=== PATIENT | female | born 1955 | race Caucasian/White ===

== ENCOUNTER 2017-01-03 09:22 | Emergency (ER) | payer BC, OTHER ==
[~2017-01-03] VITALS: Ht 149.9 cm; Wt 74.6 kg
[2017-01-03 09:30] VITALS: TEMP 36.7; Ht 149.9 cm; Wt 74.6 kg
[2017-01-03 09:59] VITALS: O2SAT 98
[2017-01-03] MEDS ORDERED: SODIUM CHLORIDE 0.9% 1000ML 1,000 ML IV STA (10:08)
[2017-01-03 10:16] LABS: BASO % 0.5 %; BASO ABS # 0.04 K/uL (0-0.2); COMPLETE YES; EOS % 0.7 %; HEMATOCRIT 39.9 % (37-47); IG% 0.1 %; LYMPH ABS # 1.54 K/uL (1.2-3.4); MEAN CELL VOLUME 89.7 fL (80-100); MEAN CORPUSCULAR HEMOGLOBIN 31.2 pg (25-34); MEAN CORPUSCULAR HGB CONC 34.8 g/dl (32-36); MEAN PLATELET VOLUME 9.7 fL (7.4-10.4); MONO % 11.4 %; NEUT % 69.3 %; PLATELET COUNT 347 K/uL (130-400); RED BLOOD COUNT 4.45 M/uL (4.2-5.4); WHITE BLOOD COUNT 8.54 K/uL (4.8-10.8)
[2017-01-03 10:31] LABS: PROTHROMBIN TIME (PATIENT) 10.3 SECONDS (9.0-12.0)
--- NOTE | 2017-01-03 10:38 | DIAGNOSTIC IMAGING REPORT ---
SINGLE VIEW CHEST CLINICAL HISTORY: Generalized weakness. Dizziness. FINDINGS: An AP, portable, upright chest radiograph is obtained. No prior studies are available for comparison at the time of dictation. The examination is degraded by portable technique and patient rotation. The cardiomediastinal silhouette is unremarkable. There is mild atherosclerotic calcification of the thoracic aorta. Nonspecific interstitial thickening is noted. The lungs and pleural spaces are clear. No pneumothorax is seen. The skeletal structures are osteopenic. The bony thorax is grossly intact. IMPRESSION: No active disease in the chest. Electronically signed by: Osvaldo Tate M.D. 01/03/2017 10:37 AM Dictated Date/Time: 01/03/2017 10:36 AM
[2017-01-03 10:49] LABS: ALT/SGPT 24 U/L (12-78); BLOOD UREA NITROGEN 13 mg/dl (7-18); BUN/CREATININE RATIO 19.2 (10-20); CALCIUM 9.8 mg/dl (8.5-10.1); CARBON DIOXIDE 26 mmol/L (21-32); CHLORIDE 102 mmol/L (98-107); CREATININE 0.66 mg/dl (0.60-1.20); GLUCOSE 97 mg/dl (70-99); MAGNESIUM 2.5 mg/dl (1.8-2.4); POTASSIUM 4.4 mmol/L (3.5-5.1); SODIUM 136 mmol/L (136-145)
[2017-01-03 10:53] LABS: ALKALINE PHOSPHATASE 52 U/L (45-117); AST/SGOT 14 U/L (15-37)
[2017-01-03] MEDS ORDERED: MAGN400T6 PO (11:19)
[2017-01-03] MEDS ORDERED: TRAZ50TA35 PO (11:19)
[2017-01-03] MEDS ORDERED: FERR50TA3 (11:19)
[2017-01-03] MEDS ORDERED: ASPCH81X PO (11:19)
[2017-01-03] MEDS ORDERED: ESOM20CA PO (11:19)
[2017-01-03] MEDS ORDERED: MULTCHW3 (11:19)
[2017-01-03 11:50] LABS: URINE APPEARANCE CLEAR (CLEAR); URINE BILIRUBIN NEG (NEG); URINE COLOR YELLOW; URINE EPITHELIAL CELL AUTO 0-5 /lpf (0-5); URINE NITRITE NEG (NEG); UROBILINOGEN NEG (NEG)
[2017-01-03 11:51] LABS: MANUAL MICROSCOPIC REQUIRED? NO; REVIEW REQ? NO
[2017-01-03] MEDS ORDERED: OXYCODONE HCL IR 5 MG TAB (IMMEDIATE RELEASE) PO STA (13:16)
--- NOTE | 2017-01-03 13:20 | DIAGNOSTIC IMAGING REPORT ---
CT OF THE HEAD WITHOUT CONTRAST CLINICAL HISTORY: Left arm weakness. COMPARISON STUDY: No previous studies for comparison. CT DOSE: 537.48 mGy.cm TECHNIQUE: Helical axial images of the head were obtained without IV contrast. Automated exposure control was utilized for the study. FINDINGS: No acute intracranial hemorrhage, midline shift or mass effect is present. Ventricular system is normal. Basilar cisterns are patent. There are no extra axial collections. Cornejo-white differentiation is maintained. There are no findings to suggest acute dural sinus thrombosis or acute territorial infarct. There are no significant calvarial abnormalities. Visualized portions of the sinuses and mastoid air cells are clear. IMPRESSION: No acute intracranial findings. Electronically signed by: Franck Rob M.D. 01/03/2017 1:19 PM Dictated Date/Time: 01/03/2017 1:17 PM
--- NOTE | 2017-01-03 14:33 | Neurology Consultation ---
Neurology Consultation Date of Consultation: Jan 03, 2017. Attending Physician: Primary Care Physician: Concepción Cline PA-C Reason for Consultation: right UE weakness, neck pain, generalized weakness History of Present Illness Source: patient, family Raina is a 61 year old female with a PMH chronic diarrhea, acid reflex, has been seen in our office for gait abnormalities and fatigue. She has been weak for the past 2 years but she feel it has gotten worse and she is having more trouble walking. She has been shuffling her gait per her sister who is bedside in the room. She is also experiencing some neck pain and lower back pain. She states her neck pain is in the past 2-3 months and is also having left arm weakness over last month with some pain. She has seen her PCP for the new left arm issues and was instructed to contact neurology. At her last visit she had an MRI of her brain that was normal for her age. She denies falls, head injury , bowel or bladder issues other than her chronic diarrhea, vivid dreams, CP, SOB , swallowing issues, vision changes, difficulty with drinking or holding a cup, N, V, freezing in door ways, +difficulty rolling in bed, standing for chair, balance issues, near falls. . Past Medical/Surgical History Medical Problems: (1) GERD (gastroesophageal reflux disease) Status: Chronic Social History Smoking Status: Never smoker Alcohol Use: occasionally Drug Use: none Allergies Coded Allergies: No Known Allergies (Unverified , 01/03/17) Physical Exam Vital Signs (Past 24 Hrs): Date Time Temp Pulse Resp B/P (MAP) Pulse Ox O2 Delivery O2 Flow Rate FiO2 01/03/17 13:30 95 16 158/81 98 Room Air 01/03/17 13:16 106 18 168/90 98 Room Air 01/03/17 12:09 99 18 151/86 97 Room Air 01/03/17 12:07 96 01/03/17 11:33 103 18 162/86 98 Room Air 01/03/17 10:56 99 18 155/95 99 Room Air 90 154/86 96 149/87 01/03/17 10:35 90 20 162/88 98 Room Air 01/03/17 09:59 98 Room Air 01/03/17 09:30 36.7 106 18 145/85 97 Room Air Physical Exam: Constitutional: appearance nourished, healthy and decrease blink frequency Ears, Nose, Mouth and Throat: mucous membranes moist, no injection and skin normal Cardiovascular: normal S-1 and S-2 and regular rate and rhythm Respiratory: clear to auscultation (CTA) and no rales, rhonchi or wheeze Musculoskeletal: no peripheral edema and good distal pulses Skin: no stigmata of neurocutaneous disease noted and normal and intact Eyes: extraocular muscles intact (EOMI) and pupils equal, round and reactive to light (PERRL), disc flat, good vascular pulsations NEUROLOGIC EXAMINATION: Mental status: Alert and interactive Oriented to full date and location Oriented to person Speech fluent with no evidence of aphasia Cranial Nerves smile eye brow raise symmetric Reflexes: Deep tendon reflexes were symmetrical brisk reflexes throughout Plantar responses were flexor.slight tremor right > left LE Sensory: cool touch, vibration intact, GT proprioception bilaterally intact, no sustained clonus Coordination: finger to nose without bi pass, no resting tremor, bilateral cog wheeling R>L Gait/Stance: Posture lying in bed, needs assistance getting out of bed, romberg + with eyes closed, squares corners with turning, when getting back in bed puts knee on bed and swings around to sitting Motor: Negative for pronator drift of out stretched arms with eyes closed. Strength: biceps triceps deltoids 4+/5 bilaterally hand purchasing internship 5/5 bilaterally, hip flex 5/ 5 plantar flex ext 4/5 Laboratory Results Past 24 Hours: 01/03/17 09:45 Red Blood Count 4.45, Mean Corpuscular Volume 89.7, Mean Corpuscular Hemoglobin 31.2, Mean Corpuscular Hemoglobin Concent 34.8, Mean Platelet Volume 9.7, Neutrophils (%) (Auto) 69.3, Lymphocytes (%) (Auto) 18.0, Monocytes (%) (Auto) 11.4, Eosinophils (%) (Auto) 0.7, Basophils (%) (Auto) 0.5, Neutrophils # (Auto ) 5.92, Lymphocytes # (Auto) 1.54, Monocytes # (Auto) 0.97, Eosinophils # (Auto ) 0.06, Basophils # (Auto) 0.04 01/03/17 09:45 Test 01/03/17 09:45 01/03/17 10:31 01/03/17 11:24 White Blood Count 8.54 K/uL (4.8-10.8) Red Blood Count 4.45 M/uL (4.2-5.4) Hemoglobin 13.9 g/dL (12.0-16.0) Hematocrit 39.9 % (37-47) Mean Corpuscular Volume 89.7 fL (80-100) Mean Corpuscular Hemoglobin 31.2 pg (25-34) Mean Corpuscular Hemoglobin Concent 34.8 g/dl (32-36) Platelet Count 347 K/uL (130-400) Mean Platelet Volume 9.7 fL (7.4-10.4) Neutrophils (%) (Auto) 69.3 % Lymphocytes (%) (Auto) 18.0 % Monocytes (%) (Auto) 11.4 % Eosinophils (%) (Auto) 0.7 % Basophils (%) (Auto) 0.5 % Neutrophils # (Auto) 5.92 K/uL (1.4-6.5) Lymphocytes # (Auto) 1.54 K/uL (1.2-3.4) Monocytes # (Auto) 0.97 K/uL (0.11-0.59) Eosinophils # (Auto) 0.06 K/uL (0-0.5) Basophils # (Auto) 0.04 K/uL (0-0.2) RDW Standard Deviation 45.9 fL (36.4-46.3) RDW Coefficient of Variation 13.9 % (11.5-14.5) Immature Granulocyte % (Auto) 0.1 % Immature Granulocyte # (Auto) 0.01 K/uL (0.00-0.02) Prothrombin Time 10.3 SECONDS (9.0-12.0) Prothromb Time International Ratio 1.0 (0.9-1.1) Activated Partial Thromboplast Time 25.4 SECONDS (21.0-31.0) Partial Thromboplastin Ratio 1.0 Anion Gap 8.0 mmol/L (3-11) Est Creatinine Clear Calc Drug Dose 77.8 ml/min Estimated GFR () 109.7 Estimated GFR (Non- 94.7 BUN/Creatinine Ratio 19.2 (10-20) Calcium Level 9.8 mg/dl (8.5-10.1) Magnesium Level 2.5 mg/dl (1.8-2.4) Total Bilirubin 0.3 mg/dl (0.2-1) Direct Bilirubin < 0.1 mg/dl (0-0.2) Aspartate Amino Transf (AST/SGOT) 14 U/L (15-37) Alanine Aminotransferase (ALT/SGPT) 24 U/L (12-78) Alkaline Phosphatase 52 U/L (45-117) Troponin I < 0.015 ng/ml (0-0.045) Total Protein 8.0 gm/dl (6.4-8.2) Albumin 4.7 gm/dl (3.4-5.0) Bedside Glucose 88 mg/dl (70-90) Urine Color YELLOW Urine Appearance CLEAR (CLEAR) Urine pH 8.0 (4.5-7.5) Urine Specific [place] 1.010 (1.000-1.030) Urine Protein NEG (NEG) Urine Glucose (UA) NEG (NEG) Urine Ketones TRACE (NEG) Urine Occult Blood 1+ (NEG) Urine Nitrite NEG (NEG) Urine Bilirubin NEG (NEG) Urine Urobilinogen NEG (NEG) Urine Leukocyte Esterase NEG (NEG) Urine WBC (Auto) 0 /hpf (0-5) Urine RBC (Auto) 0-4 /hpf (0-4) Urine Hyaline Casts (Auto) 0 /lpf (0-5) Urine Epithelial Cells (Auto) 0-5 /lpf (0-5) Urine Bacteria (Auto) NEG (NEG) Imaging CT head -no acute findings. Impression 61 year old female with left arm weakness, generalized weakness, gait abnormalities Plan 1. fall precautions 2. labs - normal urine no UTI 3. MRI c spine without evaluation for any pathology to explain weakness 4. no new medications 5. b12, folate, TSH should be checked 6. further recommendations once MRI c spine is completed- degenerative changes 7. start Sinemet 25/100 mg 1/2 tab breakfast and 1/2 tab dinner x 1 week, then increase to 1/2 tab breakfast 1/2 tab lunch 1/2 tab and dinner, x 1 week then increase to 1 tab breakfast, 1/2 tab lunch, 1/2 tab dinner x 1 week, then increase to 1 tab breakfast, 1 tab lunch, 1/2 tab dinner x1 week then 1 tab with breakfast lunch and dinner 8. will arrange for outpatient PT for gait issues. 9. watch for hallucinations vivid dreams, GI upset, light headed with standing. 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
[2017-01-03] MEDS ORDERED: MoRPHine SULFATE 4 MG/ML 1 ML CARP\\VIAL IV STA (15:41)
--- NOTE | 2017-01-03 15:42 | DIAGNOSTIC IMAGING REPORT ---
MRI OF THE CERVICAL SPINE WITHOUT IV CONTRAST CLINICAL HISTORY: Left arm weakness. Neck pain. COMPARISON STUDY: No priors. TECHNIQUE: MRI of the cervical spine is performed utilizing various T1 and T2-weighted sequences in the axial and sagittal planes. IV contrast was not administered for this examination. FINDINGS: Cervical spine: Vertebral body height and alignment are maintained throughout the cervical spine. Normal marrow signal intensity is preserved throughout the visualized bony structures. The atlantodental articulation is maintained. The spinous processes are intact. Intervertebral discs: Degenerative disc desiccation is seen throughout the cervical spine. Only mild loss of height is noted, greatest at C4-C5 through C6-C7. Spinal cord: The cervical spinal cord is normal in morphology and signal intensity. C2-C3: Unremarkable. C3-C4: A tiny posterior disc osteophyte complex abuts the ventral cord. The neural foramina are patent. C4-C5: A posterior disc osteophyte complex abuts the ventral cord. Uncovertebral and facet arthropathy cause mild bilateral neuroforaminal stenosis, left greater than right. C5-C6: A posterior disc osteophyte complex abuts the ventral cord. Uncovertebral and facet arthropathy cause mild left neural foraminal stenosis. C6-C7: A posterior disc osteophyte complex abuts the ventral cord. Uncovertebral and facet arthropathy cause mild bilateral neural foraminal stenosis. A nerve sheath cyst on the left measures up to 6 mm. C7-T1: The central canal and neural foramina are widely patent. A nerve sheath cyst in the left neural foramen measures up to 8 mm. Soft tissues: The prevertebral and paraspinous soft tissues are within normal limits. Brain parenchyma: Partially imaged brain parenchyma at the skull base is normal in appearance. IMPRESSION: 1. Mild multilevel cervical spondylosis as discussed above. See discussion for detailed level by level analysis. 2. The cervical spinal cord is normal in morphology and signal intensity. 3. No destructive bony lesion is seen. Dictated: 01/03/2017 3:27 PM Transcribed: 01/03/2017 3:42 PM [email or web address] Electronically signed by: Osvaldo Tate M.D. 01/03/2017 3:48 PM Dictated Date/Time: 01/03/2017 3:27 PM
[2017-01-03 16:34] VITALS: BP 146/82; PULSE 102; O2SAT 97
--- NOTE | 2017-01-03 17:09 | EMERGENCY ROOM VISIT NOTE ---
History Report prepared by Zaheer: Majo Francisco Under the Supervision of: Dr. Tera Wylie D.O. First contact with patient: 09:54 Chief Complaint: WEAKNESS Stated Complaint: WEAKNESS, DIZZY, BACK PAIN, EAR PAIN, FOGGY,NAUSEA History of Present Illness The patient is a 61 year old female who presents to the Emergency Room with complaints of worsening generalized weakness. The patient states that she has been experiencing weakness for the past 1.5 years, but it has gotten gradually worse over the last 3-4 months. The patient is also experiencing neck pain at the base of her head as well as lower back pain. The patient states that the lower back pain is chronic, but the neck pain is new. The patient is also experiencing left arm weakness that started 2-3 months ago as well as left arm pain that seemed to worsen over the last month. She describes the pain as "squeezing." The patient states that she has been experiencing difficulty with coordination of her left arm. The patient denies chest pain, shortness of breath , nausea, vomiting, pain or burning with urination, and numbness. The patient is also experiencing intermittent diarrhea, but she states that is normal for her. The patient has seen her PCP 5 times since her symptoms started. Her PCP referred her to neurology and she saw neurology in May and August, but has not seen or talked to them about her current symptoms. She states that she had an unremarkable MRI of her brain and that neurology diagnosed her with an abnormal gait but nothing else. She states that she has an appointment with neurology in January. Source of History: patient Onset: 3-4 months ago Position: other (global) Quality: other (generalized weakness) Timing: worsening Associated Symptoms: + neck pain, + diarrhea (intermittent, normal for her) , + weakness (left arm), No chest pain, No SOB, No nausea, No vomiting, No urinary symptoms (pain or burning with urination), No numbness Note: left arm pain, difficulty with coordination of her left arm Review of Systems See HPI for pertinent positives & negatives. A total of 10 systems reviewed and were otherwise negative. Past Medical & Surgical Medical Problems: (1) GERD (gastroesophageal reflux disease) Family History Cancer Diabetes mellitus Heart disease Hypertension Social History Smoking Status: Never Smoker Smokeless Tobacco Use: No Alcohol Use: occasionally Drug Use: none Housing Status: lives alone Occupation Status: unemployed Current/Historical Medications Scheduled Aspirin (Aspirin Chewable), 81 MG PO DAILY Esomeprazole Magnesium (Nexium), 20 MG PO DAILY Miscellaneous Medications Ferrous Sulfate (Iron (Ferrous Sulfate)), 65 MG Magnesium Oxide (Mag-Ox), 400 MG PO Multiple Vitamins W/ Minerals (Centrum) Trazodone Hcl (Trazodone), 25 MG PO Allergies Coded Allergies: No Known Allergies (Unverified , 01/03/17) Physical Exam Vital Signs Date Time Temp Pulse Resp B/P (MAP) Pulse Ox O2 Delivery O2 Flow Rate FiO2 01/03/17 16:34 102 146/82 97 01/03/17 15:39 100 18 169/103 98 Room Air 01/03/17 13:30 95 16 158/81 98 Room Air 01/03/17 13:16 106 18 168/90 98 Room Air 01/03/17 12:09 99 18 151/86 97 Room Air 01/03/17 12:07 96 01/03/17 11:33 103 18 162/86 98 Room Air 01/03/17 10:56 99 18 155/95 99 Room Air 90 154/86 96 149/87 01/03/17 10:35 90 20 162/88 98 Room Air 01/03/17 09:59 98 Room Air 01/03/17 09:30 36.7 106 18 145/85 97 Room Air Physical Exam GENERAL: alert, sitting up in bed, disheveled, well appearing, well nourished, no acute distress, non-toxic EYE EXAM: normal conjunctiva, PERRL and EOM's intact OROPHARYNX: no exudate, no erythema, lips, buccal mucosa, and tongue normal and mucous membranes are moist NECK: supple, no nuchal rigidity, no adenopathy, non-tender LUNGS: Clear to auscultation. Normal chest wall mechanics HEART: no murmurs, S1 normal and S2 normal ABDOMEN: abdomen soft, non-tender, normo-active bowel sounds, no masses, no rebound or guarding. BACK: Back is symmetrical on inspection and there is no deformity, no midline tenderness, no CVA tenderness. SKIN: no rashes and no bruising UPPER EXTREMITIES: upper extremities are grossly normal. LOWER EXTREMITIES: No pitting edema. NEURO EXAM: Normal sensorium, cranial nerves II-XII intact, normal speech, no weakness of arms, no weakness of legs. No drift. Finger to nose intact. Gross sensation intact. Rapid alternating movements of the upper extremities intact bilaterally. Medical Decision & Procedures ER Provider Diagnostic Interpretation: Radiology results as stated below per my review and the radiologist's interpretation: SINGLE VIEW CHEST FINDINGS: An AP, portable, upright chest radiograph is obtained. No prior studies are available for comparison at the time of dictation. The examination is degraded by portable technique and patient rotation. The cardiomediastinal silhouette is unremarkable. There is mild atherosclerotic calcification of the thoracic aorta. Nonspecific interstitial thickening is noted. The lungs and pleural spaces are clear. No pneumothorax is seen. The skeletal structures are osteopenic. The bony thorax is grossly intact. IMPRESSION: No active disease in the chest. Electronically signed by: Osvaldo Tate M.D. 01/03/2017 10:37 AM Dictated Date/Time: 01/03/2017 10:[address] OF THE HEAD WITHOUT CONTRAST FINDINGS: No acute intracranial hemorrhage, midline shift or mass effect is present. Ventricular system is normal. Basilar cisterns are patent. There are no extra axial collections. Cornejo-white differentiation is maintained. There are no findings to suggest acute dural sinus thrombosis or acute territorial infarct. There are no significant calvarial abnormalities. Visualized portions of the sinuses and mastoid air cells are clear. IMPRESSION: No acute intracranial findings. Electronically signed by: Franck Rob M.D. 01/03/2017 1:19 PM Dictated Date/Time: 01/03/2017 1:17 PM MRI OF THE CERVICAL SPINE WITHOUT IV CONTRAST FINDINGS: Cervical spine: Vertebral body height and alignment are maintained throughout the cervical spine. Normal marrow signal intensity is preserved throughout the visualized bony structures. The atlantodental articulation is maintained. The spinous processes are intact. Intervertebral discs: Degenerative disc desiccation is seen throughout the cervical spine. Only mild loss of height is noted, greatest at C4-C5 through C6-C7. Spinal cord: The cervical spinal cord is normal in morphology and signal intensity. C2-C3: Unremarkable. C3-C4: A tiny posterior disc osteophyte complex abuts the ventral cord. The neural foramina are patent. C4-C5: A posterior disc osteophyte complex abuts the ventral cord. Uncovertebral and facet arthropathy cause mild bilateral neuroforaminal stenosis, left greater than right. C5-C6: A posterior disc osteophyte complex abuts the ventral cord. Uncovertebral and facet arthropathy cause mild left neural foraminal stenosis. C6-C7: A posterior disc osteophyte complex abuts the ventral cord. Uncovertebral and facet arthropathy cause mild bilateral neural foraminal stenosis. A nerve sheath cyst on the left measures up to 6 mm. C7-T1: The central canal and neural foramina are widely patent. A nerve sheath cyst in the left neural foramen measures up to 8 mm. Soft tissues: The prevertebral and paraspinous soft tissues are within normal limits. Brain parenchyma: Partially imaged brain parenchyma at the skull base is normal in appearance. IMPRESSION: 1. Mild multilevel cervical spondylosis as discussed above. See discussion for detailed level by level analysis. 2. The cervical spinal cord is normal in morphology and signal intensity. 3. No destructive bony lesion is seen. Dictated: 01/03/2017 3:27 PM Transcribed: 01/03/2017 3:42 PM [email or web address] Electronically signed by: Osvaldo Tate M.D. 01/03/2017 3:48 PM Dictated Date/Time: 01/03/2017 3:27 PM Laboratory Results 01/03/17 09:45 Red Blood Count 4.45, Mean Corpuscular Volume 89.7, Mean Corpuscular Hemoglobin 31.2, Mean Corpuscular Hemoglobin Concent 34.8, Mean Platelet Volume 9.7, Neutrophils (%) (Auto) 69.3, Lymphocytes (%) (Auto) 18.0, Monocytes (%) (Auto) 11.4, Eosinophils (%) (Auto) 0.7, Basophils (%) (Auto) 0.5, Neutrophils # (Auto ) 5.92, Lymphocytes # (Auto) 1.54, Monocytes # (Auto) 0.97, Eosinophils # (Auto ) 0.06, Basophils # (Auto) 0.04 01/03/17 09:45 Test 01/03/17 09:45 01/03/17 10:31 01/03/17 11:24 White Blood Count 8.54 K/uL (4.8-10.8) Red Blood Count 4.45 M/uL (4.2-5.4) Hemoglobin 13.9 g/dL (12.0-16.0) Hematocrit 39.9 % (37-47) Mean Corpuscular Volume 89.7 fL (80-100) Mean Corpuscular Hemoglobin 31.2 pg (25-34) Mean Corpuscular Hemoglobin Concent 34.8 g/dl (32-36) Platelet Count 347 K/uL (130-400) Mean Platelet Volume 9.7 fL (7.4-10.4) Neutrophils (%) (Auto) 69.3 % Lymphocytes (%) (Auto) 18.0 % Monocytes (%) (Auto) 11.4 % Eosinophils (%) (Auto) 0.7 % Basophils (%) (Auto) 0.5 % Neutrophils # (Auto) 5.92 K/uL (1.4-6.5) Lymphocytes # (Auto) 1.54 K/uL (1.2-3.4) Monocytes # (Auto) 0.97 K/uL (0.11-0.59) Eosinophils # (Auto) 0.06 K/uL (0-0.5) Basophils # (Auto) 0.04 K/uL (0-0.2) RDW Standard Deviation 45.9 fL (36.4-46.3) RDW Coefficient of Variation 13.9 % (11.5-14.5) Immature Granulocyte % (Auto) 0.1 % Immature Granulocyte # (Auto) 0.01 K/uL (0.00-0.02) Prothrombin Time 10.3 SECONDS (9.0-12.0) Prothromb Time International Ratio 1.0 (0.9-1.1) Activated Partial Thromboplast Time 25.4 SECONDS (21.0-31.0) Partial Thromboplastin Ratio 1.0 Anion Gap 8.0 mmol/L (3-11) Est Creatinine Clear Calc Drug Dose 77.8 ml/min Estimated GFR () 109.7 Estimated GFR (Non- 94.7 BUN/Creatinine Ratio 19.2 (10-20) Calcium Level 9.8 mg/dl (8.5-10.1) Magnesium Level 2.5 mg/dl (1.8-2.4) Total Bilirubin 0.3 mg/dl (0.2-1) Direct Bilirubin < 0.1 mg/dl (0-0.2) Aspartate Amino Transf (AST/SGOT) 14 U/L (15-37) Alanine Aminotransferase (ALT/SGPT) 24 U/L (12-78) Alkaline Phosphatase 52 U/L (45-117) Troponin I < 0.015 ng/ml (0-0.045) Total Protein 8.0 gm/dl (6.4-8.2) Albumin 4.7 gm/dl (3.4-5.0) Bedside Glucose 88 mg/dl (70-90) Urine Color YELLOW Urine Appearance CLEAR (CLEAR) Urine pH 8.0 (4.5-7.5) Urine Specific Carbon 1.010 (1.000-1.030) Urine Protein NEG (NEG) Urine Glucose (UA) NEG (NEG) Urine Ketones TRACE (NEG) Urine Occult Blood 1+ (NEG) Urine Nitrite NEG (NEG) Urine Bilirubin NEG (NEG) Urine Urobilinogen NEG (NEG) Urine Leukocyte Esterase NEG (NEG) Urine WBC (Auto) 0 /hpf (0-5) Urine RBC (Auto) 0-4 /hpf (0-4) Urine Hyaline Casts (Auto) 0 /lpf (0-5) Urine Epithelial Cells (Auto) 0-5 /lpf (0-5) Urine Bacteria (Auto) NEG (NEG) Laboratory results per my review. Medications Administered Medications (Trade) Dose Ordered Sig/Corey Route Start Time Stop Time Status Last Admin Dose Admin Sodium Chloride 1,000 ml @ 999 mls/hr Q1H1M STAT IV 01/03/17 10:08 01/03/17 11:08 DC 01/03/17 10:35 999 MLS/HR Oxycodone HCl (Roxicodone Immediate Rel Tab) 5 mg NOW STAT PO 01/03/17 13:16 01/03/17 13:17 DC 01/03/17 13:21 5 MG Morphine Sulfate (MoRPHine SULFATE INJ) 4 mg NOW STAT IV 01/03/17 15:41 01/03/17 15:42 DC 01/03/17 15:47 4 MG ECG Indication: weakness Rate (beats per minute): 98 Rhythm: sinus rhythm Findings: no ectopy, other (normal axis) ED Course ED COURSE: Vital signs were reviewed and showed hypertension and tachycardia. The patients medical record was reviewed The above diagnostic studies were performed and reviewed. ED treatments and interventions as stated above. 0958: The patient was evaluated in room B3. A complete history and physical examination was performed. 1008: Ordered Sodium Chloride 1000 ml @ 999 mls/hr IV 1121: I reviewed the patient's case with Dr. Ware - Neurology. He recommended admitting the patient because she may need a cervical spine MRI. However, he thinks that her symptoms may be secondary to Parkinson's disease. 1152: I reassessed and updated the patient. She is resting comfortably. The patient is in agreement with getting a CT of her head. 1316: Ordered Oxycodone HCl 5 mg PO 1356: Shirley Acevedo PA-C - Neurology is at bedside and recommends a MRI of the cervical spine. 1440: I reassessed the patient. She is resting comfortably. 1541: Ordered Morphine Sulfate 4 mg IV 1621: Dr. Ware and Shirley Acevedo PA-C are at bedside. Dr. Ware evaluated the patient. He agrees that the patient can go home and follow-up as an outpatient. 1623: Upon reevaluation, the patient is doing well. I discussed my findings with the patient and she understands and agrees with the treatment plan. Based on the patients age, coexisting illnesses, exam and lab findings the decision to treat as an outpatient was made. The patient remained stable while under my care. The patient appeared well at the time of discharge. Medical Decision Differential Diagnosis includes but is not limited to dehydration, stroke, anemia, hypoglycemia, hyponatremia, hypernatremia, urinary tract infection, pneumonia, bronchitis, sepsis, gastroenteritis, additional abdominal pathology, metabolic abnormalities and infections. Medication Reconciliation: I attest that I have personally reviewed the patient' s current medication list. Blood pressure screening: Patient was found to have an elevated blood pressure and was referred to their primary doctor for recheck and further treatment. Patient is a 61-year-old female who has had a steady decline at home for the past 18 months. She has been following with neurology as she has been having difficulty with her fine motor skills and ambulation. She is complaining of diffuse weakness and wide gait. She presents today as she has had increased diffuse weakness associated with slight new weakness in her left upper extremity. No weakness in her left upper extremity has been present since October. She also complains of upper back pain and chronic lower back pain. Labs were obtained and CBC along with BMP, LFTs, bilirubin, troponin and magnesium are fairly unremarkable. UA was negative. Chest x-ray was unremarkable. CT head was negative. Patient was evaluated by Shirley Acevedo and Dr. Ware from neurology. They recommended MRI of the cervical spine. Following this patient was reevaluated and we discussed options at bedside. She will be discharged follow-up in the office and was given a prescription for Parkinson's medication by neurology and an order for PT/OT was placed by neurology. Patient and family were comfortable with this. Discussed with Pt concerning signs and symptoms to watch out for. Pt was instructed to follow up with their PCP and discussed with the patient their option to return to the ED at anytime for persistent or worsening symptoms. The appropriate anticipatory guidance and out-patient management, including indications for return to the emergency department, were explained at length to the patient and understood. Consults Time Called: [phone] Consulting Physician: Dr. Ware - Neurology Returned Call: [phone] I reviewed the patient's case with Dr. Ware - Neurology. He recommended admitting the patient because she may need a cervical spine MRI. However, he thinks that her symptoms may be secondary to Parkinson's disease. Impression Primary Impression: Weakness Additional Impression: Parkinson's disease Scribe Attestation The scribe's documentation has been prepared under my direction and personally reviewed by me in its entirety. I confirm that the note above accurately reflects all work, treatment, procedures, and medical decision making performed by me. Departure Information Dispostion Home / Self-Care Referrals Concepción Cline PA-C (PCP) Forms HOME CARE DOCUMENTATION FORM, IMPORTANT VISIT INFORMATION Patient Instructions ED Weakness Bl[facility] Additional Instructions Please follow up with your primary care doctor with in the next 24 hours. Any worsening of your symptoms, please return to the ED immediately. This includes fevers greater than 100.4, chest pain, shortness of breath, weakness in your arms or legs, or any other concerning signs or symptoms from your standpoint. Please follow-up with neurology as previously discussed. Please take medications as prescribed by neurology. Problem Qualifiers
== END 2017-01-03 16:35 | disposition home or self-care (01) ==
LOC: C.EDB 09:24
DX: R53.1 Weakness (principal); R29.898 Other symptoms and signs involving the musculoskeletal system; R26.9 Unspecified abnormalities of gait and mobility; G20 Parkinson's disease; R19.7 Diarrhea, unspecified; K21.9 Gastro-esophageal reflux disease without esophagitis; M54.2 Cervicalgia; M54.5 Low back pain; Z83.3 Family history of diabetes mellitus; Z82.49 Family history of ischemic heart disease and other diseases of the circulatory system; Z79.82 Long term (current) use of aspirin; Z79.899 Other long term (current) drug therapy

== ENCOUNTER 2022-02-18 14:04 | Inpatient (IN) ==
--- NOTE | 2022-02-18 15:11 | XRay Report ---
XR chest 2V PA/lateral CLINICAL HISTORY: weakness TECHNIQUE: 2 views of the chest were obtained. Comparison: None available at the time of this dictation. FINDINGS: No lines and tubes are seen. The cardiomediastinal silhouette is normal. The lungs are clear. No evid ence of pleural effusion or pneumothorax. Degenerative changes are seen in the spine. IMPRESSION: No acute chest disease. ACT 112: Negative or not required by law. Electronically signed by: Niko Ritchie M.D. 02/18/2022 3:10 PM
[2022-02-18 15:35] LABS: Basophils # (auto) 0.06 K/uL (0-0.2); Basophils % (auto) 0.7 %; Eosinophils # (auto) 0.05 K/uL (0-0.50); Eosinophils % (auto) 0.6 %; Hematocrit (blood only) 37.3 % (34.1-44.9); Immature Granulocytes # (auto) 0.03 K/uL (0.00-0.02); Immature Granulocytes % (auto) 0.3 %; Lymphocytes # (auto) 1.58 K/uL (1.2-3.4); Lymphocytes % (auto) 17.4 %; Mean Corpuscular Hgb Conc 34.9 g/dL (32.0-36.0); Mean Platelet Volume 8.9 fL (9.4-12.3); Monocytes % (auto) 9.9 %; Neutrophils # (auto) 6.46 K/uL (1.4-6.5); Neutrophils % (auto) 71.1 %; Platelet Count 394 K/uL (130-400); RDW Coefficient of Variation 13.4 % (11.5-14.5); RDW Standard Deviation 43.8 fL (36.4-46.3); Red Blood Count 4.19 M/uL (3.93-5.22); White Blood Count 9.08 K/ul (4.8-10.8)
[2022-02-18 16:09] LABS: Alanine Aminotransferase 8 U/L (7-52); Albumin Globulin Ratio 1.7 (0.9-2); Albumin Level 4.6 gm/dl (3.4-5.0); Alkaline Phosphatase 51 U/L (34-104); Anion Gap 8 (3-11); Aspartate Aminotransferase 18 U/L (13-39); Bilirubin,Total 0.4 mg/dl (0.2-1.0); Blood Urea Nitrogen 9 mg/dl (6-23); Calcium 9.4 mg/dl (8.5-10.1); Carbon Dioxide 24 mmol/L (21-32); Chloride 94 mmol/L (98-107); Est GFR (African American) 113.9 ml/min; Est GFR (Non-African American) 98.2 ml/min; Globulin 2.7 gm/dl (2.5-4.0); Glucose 117 mg/dl (70-99(Fasting)); Potassium 4.2 mmol/L (3.5-5.1); Sodium 126 mmol/L (136-145); Total Protein 7.3 gm/dl (6.0-8.3)
[2022-02-18] MEDS ORDERED: SODIUM CHLORIDE 0.9% 1000ML 1,000 ML IV STA (16:14)
[2022-02-18] MEDS ORDERED: CARBIDOPA/LEVODOPA 25/100MG TAB PO STA (16:19)
--- NOTE | 2022-02-18 16:19 | Emergency Department Note ---
Impression & Plan Weakness, Acute hyponatremia ED Provider Note INFORMANT: Patient and family ED PROVIDER(S): Angel Davis MD CHIEF COMPLAINT: Weakness PLAN: Disposition: Admitted Condition: Good Outpatient prescription management: none Referral: None MEDICAL DECISION MAKING: Patient presented because of increasing weakness and weight loss. She had a nonfocal examination. She did miss her afternoon Sinemet and this was ordered. Patient was hydrated. Laboratory testing did reveal an unremarkable CBC however the patient does have significant hyponatremia on labs. I did obtain old records and the patient had a sodium of 134 previously but then it dropped last week to 130 and it is now in the danger zone of 126. This would explain her increasing weakness. Patient had an ECG that showed a sinus tachycardia without ischemia. Further management in the hospital will be necessary regarding the weakness and the hyponatremia. [facility] Patient and family were informed. They were in agreement. Patient was evaluated in the ER and admitted for further management. Triage Nursing notes reviewed and agree them. Vital Signs: reviewed and remarkable for mild tachycardia Differential diagnosis: Infection, dehydration, metabolic abnormality, hypo/hyperglycemia, electrolyte disturbance, anemia, hypoxia, cardiac sources, intracerebral event, toxicologic, neurologic, as well as other pathologies. Diagnostics interpreted by me: ECG: Twelve-lead ECG reveals sinus tachycardia [address] elevation or depression. No PACs or PVCs. Cardiac Monitoring: Cardiac monitoring ordered by me: The patient was placed on continuous cardiac monitoring and observed. It revealed a sinus tachycardic rhythm at 108 beats per minute without ectopy or evidence of dysrhythmia. Imaging studies: Chest x-ray. Findings: A chest x-ray was performed and revealed no pneumothorax, effusion, infiltrate, pulmonary edema, free air under the diaphragm, or wide mediastinum. Impression: No acute disease. HPI: The patient is a 66 year old female who presents to the Emergency Room with complaints of weakness. This started a few weeks ago and is worsening. The patient also notes the following associated symptoms, 15lb weight loss. The patient has found no relieving factors. Current pain is rated as 0/10. Missed 1430 sinemet dose today. Pt denies LOC, headache, fevers, chills, diaphoresis, visual changes, neck pain, chest pain, breathing difficulties, nausea, vomiting, abdominal pain, back pain, melena, hematochezia, urinary symptoms, numbness, lymphadenopathy, rash, or other complaints. ROS: See above HPI for pertinent positives & negatives. A total of 10 systems reviewed and were otherwise negative. PAST MEDICAL HISTORY:See Below , parkinson PAST SURGICAL HISTORY:See Below, FAMILY HISTORY:See Below SOCIAL HISTORY:See Below, no tobacco or ETOH HOME MEDICATIONS:See Below ALLERGIES:See Below VITALS:See Below PHYSICAL EXAMINATION: GENERAL: Awake, alert, well-appearing, in no distress HENT: Normocephalic, atraumatic. Oropharynx unremarkable. EYES: Normal conjunctiva. Sclera non-icteric. NECK: Inspection normal. Non-tender. Supple. No nuchal rigidity. FROM. No masses. RESPIRATORY: Clear to auscultation. No wheezes. No rales. Normal respiratory effort. CARDIAC: Normal rate. Normal rhythm. No murmurs. No rubs. Extremities warm and well perfused. Pulses equal. No JVD. GI: Soft, non-distended. No tenderness to palpation. No rebound or guarding. No masses. RECTAL: Deferred. MUSCULOSKELETAL: Atraumatic. Chest examination reveals no tenderness. The back is symmetrical on inspection without obvious abnormality. There is no CVA tenderness to palpation. No joint edema. LOWER EXTREMITIES: Calves are equal size bilaterally and non-tender. No edema. No discoloration. NEURO: Normal sensorium. Generalized weakness but no focal sensory or motor deficits noted. SKIN: No rash or jaundice noted. Angel Davis MD Past Med/Surg History Medical History GERD (gastroesophageal reflux disease) Parkinson's disease Surgical History History of colonoscopy History of esophagogastroduodenoscopy Family History Other Diabetes Heart disease Social History Smoking Status: Never smoker Preferred Language: [place] marital status: / current occupational status: retired Feels Safe at Home: Yes Allergies Allergies Allergy/AdvReac Type Severity Reaction Status Date / Time No Known Allergies Allergy Verified 02/18/22 16:55 Home Meds Home Medications Medication Instructions Recorded Confirmed Lactobacillus acidophilus 10 10,000 mmu cells PO QDL 02/18/22 02/18/22 billion cell capsule (Probiotic) acetaminophen 650 mg 650 mg PO HS 02/18/22 02/18/22 tablet,extended release (Tylenol 8 Hour) amantadine HCl 100 mg capsule 100 mg PO DAILY 02/18/22 02/18/22 bismuth subsalicylate 262 mg/15 mL 524 mg PO Q4H PRN Gi Upset 02/18/22 02/18/22 oral suspension (Pepto-Bismol) carbidopa ER 25 mg-levodopa 100 mg 1.5 tab PO 5XD 02/18/22 02/18/22 tablet,extended release carbidopa ER 50 mg-levodopa 200 mg 1 tab PO HS 02/18/22 02/18/22 tablet,extended release ferrous sulfate 325 mg (65 mg 325 mg PO DAILY 02/18/22 02/18/22 iron) tablet loperamide 2 mg capsule (Imodium 2 mg PO QID PRN Diarrhea 02/18/22 02/18/22 A-D) magnesium 250 mg tablet 250 mg PO DAILY 02/18/22 02/18/22 multivitamin with minerals 1 tab PO DAILY 02/18/22 02/18/22 omeprazole 40 mg capsule,delayed 40 mg PO DAILY 02/18/22 02/18/22 release Results & Data (ED) Vital Signs Vital Signs - 24 hr 02/18/22 14:13 02/18/22 15:49 Temperature 36.7 C Temperature Source Temporal Artery Scan Pulse Rate 109 H Pulse Rate [Right Finger] 110 H Respiratory Rate 20 19 Respiratory Effort / Characteristics Non-Labored Respiratory Depth Normal Respiratory Pattern Regular Blood Pressure 170/106 H Blood Pressure [Right Arm] 194/114 H Blood Pressure Mean 127 Blood Pressure Mean [Right Arm] 140 Blood Pressure Position Sitting Pulse Oximetry 96 98 Oxygen Delivery Method Room Air Room Air Sepsis Recent Fever Within 48 Hours No Sepsis New/Unexplained Change in Mental Status No Sepsis Action Taken by Nursing No Action Required Laboratory Data Result diagrams: 02/18/22 15:15 02/18/22 15:15 Lab Results 02/18/22 02/18/22 02/18/22 Range/Units 15:15 15:15 15:15 WBC 9.08 (4.8-10.8) K/ul RBC 4.19 (3.93-5.22) M/uL Hgb 13.0 (12.0-16.0) g/dl Hct 37.3 (34.1-44.9) % MCV 89.0 (80.0-100.0) fL MCH 31.0 (25.0-34.0) pg MCHC 34.9 (32.0-36.0) g/dL RDW Std Deviation 43.8 (36.4-46.3) fL RDW Coeff of Jovani 13.4 (11.5-14.5) % Plt Count 394 (130-400) K/uL MPV 8.9 L (9.4-12.3) fL Immature Gran % (Auto) 0.3 % Neut % (Auto) 71.1 % Lymph % (Auto) 17.4 % [place] % (Auto) 9.9 % Eos % (Auto) 0.6 % Baso % (Auto) 0.7 % Neut # (Auto) 6.46 (1.4-6.5) K/uL Lymph # (Auto) 1.58 (1.2-3.4) K/uL [place] # (Auto) 0.90 H (0.24-0.82) K/uL Eos # (Auto) 0.05 (0-0.50) K/uL Baso # (Auto) 0.06 (0-0.2) K/uL Immature Gran # (Auto) 0.03 H (0.00-0.02) K/uL ESR (0-30) mm/hr Sodium 126 L (136-145) mmol/L Potassium 4.2 (3.5-5.1) mmol/L Chloride 94 L (98-107) mmol/L Carbon Dioxide 24 (21-32) mmol/L Anion Gap 8 (3-11) BUN 9 (6-23) mg/dl Creatinine 0.53 L (0.6-1.2) mg/dl Est Cr Clr Drug Dosing Not Reportable Est GFR ( Amer) 113.9 ml/min Est GFR (Non-Af Amer) 98.2 ml/min BUN/Creatinine Ratio 17.0 (10-20) Glucose 117 H (70-99(Fasting)) mg/dl Calcium 9.4 (8.5-10.1) mg/dl Total Bilirubin 0.4 (0.2-1.0) mg/dl AST 18 (13-39) U/L ALT 8 (7-52) U/L Alkaline Phosphatase 51 (34-104) U/L Troponin I High Sens 4.7 (0-14) pg/ml C-Reactive Protein < 0.50 (0-0.5) mg/dl Total Protein 7.3 (6.0-8.3) gm/dl Albumin 4.6 (3.4-5.0) gm/dl Globulin 2.7 (2.5-4.0) gm/dl Albumin/Globulin Ratio 1.7 (0.9-2) TSH 0.696 (0.300-4.500) uIu/ml SARS-CoV-2, RNA, NAAT (NEGATIVE) 02/18/22 02/18/22 02/18/22 Range/Units 15:15 15:56 16:44 WBC (4.8-10.8) K/ul RBC (3.93-5.22) M/uL Hgb (12.0-16.0) g/dl Hct (34.1-44.9) % MCV (80.0-100.0) fL MCH (25.0-34.0) pg MCHC (32.0-36.0) g/dL RDW Std Deviation (36.4-46.3) fL RDW Coeff of Jovani (11.5-14.5) % Plt Count (130-400) K/uL MPV (9.4-12.3) fL Immature Gran % (Auto) % Neut % (Auto) % Lymph % (Auto) % [place] % (Auto) % Eos % (Auto) % Baso % (Auto) % Neut # (Auto) (1.4-6.5) K/uL Lymph # (Auto) (1.2-3.4) K/uL [place] # (Auto) (0.24-0.82) K/uL Eos # (Auto) (0-0.50) K/uL Baso # (Auto) (0-0.2) K/uL Immature Gran # (Auto) (0.00-0.02) K/uL ESR 15 (0-30) mm/hr Sodium (136-145) mmol/L Potassium (3.5-5.1) mmol/L Chloride (98-107) mmol/L Carbon Dioxide (21-32) mmol/L Anion Gap (3-11) BUN (6-23) mg/dl Creatinine (0.6-1.2) mg/dl Est Cr Clr Drug Dosing Est GFR ( Amer) ml/min Est GFR (Non-Af Amer) ml/min BUN/Creatinine Ratio (10-20) Glucose (70-99(Fasting)) mg/dl Calcium (8.5-10.1) mg/dl Total Bilirubin (0.2-1.0) mg/dl AST (13-39) U/L ALT (7-52) U/L Alkaline Phosphatase (34-104) U/L Troponin I High Sens Cancelled (0-14) pg/ml C-Reactive Protein (0-0.5) mg/dl Total Protein (6.0-8.3) gm/dl Albumin (3.4-5.0) gm/dl Globulin (2.5-4.0) gm/dl Albumin/Globulin Ratio (0.9-2) TSH (0.300-4.500) uIu/ml SARS-CoV-2, RNA, NAAT NEGATIVE (NEGATIVE) Administered Medications Sodium Chloride (Nss 1000ml) 1,000 mls @ 125 mls/hr IV .Q8H STA Stop: 02/19/22 00:13 Last Admin: 02/18/22 16:46 Dose: 125 mls/hr Documented By: SM Discontinued Medications Acetaminophen (Acetaminophen 325 Mg Tab) Confirm Administered Dose 650 mg .ROUTE .STK-MED ONE Stop: 02/18/22 19:16 Last Admin: 02/18/22 19:20 Dose: Not Given Documented By: SS Acetaminophen (Acetaminophen 500 Mg Tab) 1,000 mg PO NOW STA Stop: 02/18/22 19:17 Last Admin: 02/18/22 19:42 Dose: Not Given Documented By: SS Acetaminophen (Acetaminophen 500 Mg Tab) Confirm Administered Dose 1,000 mg .ROUTE .STK-MED ONE Stop: 02/18/22 19:23 Last Admin: 02/18/22 19:43 Dose: Not Given Documented By: SS Carbidopa/Levodopa (Carbidopa/Levodopa 25/100mg Tab) 1 tab PO NOW STA Stop: 02/18/22 16:20 Last Admin: 02/18/22 16:46 Dose: 1 tab Documented By: HARDIK Lorazepam (Lorazepam 0.5 Mg Tab) 0.5 mg PO NOW STA Stop: 02/18/22 19:17 Last Admin: 02/18/22 19:33 Dose: 0.5 mg Documented By: SS Imaging Data Radiologist's Impression: Chest X-Ray 02/18/22 14:17 XR chest 2V PA/lateral CLINICAL HISTORY: weakness TECHNIQUE: 2 views of the chest were obtained. Comparison: None available at the time of this dictation. FINDINGS: No lines and tubes are seen. The cardiomediastinal silhouette is normal. The lungs are clear. No evidence of pleural effusion or pneumothorax. Degenerative changes are seen in the spine. IMPRESSION: No acute chest disease. ACT 112: Negative or not required by law. Electronically signed by: Niko Ritchie M.D. 02/18/2022 3:10 PM Discharge Plan Visit Data Chief Complaint: Illness Stated Complaint: PARKINSONS, LOSS OF APPETITE, WEAKNESS ED Provider: Angel Davis Discharge Problem: Weakness, Acute hyponatremia
[2022-02-18 16:25] LABS: C Reactive Protein < 0.50 mg/dl (0-0.5)
--- NOTE | 2022-02-18 16:53 | History & Physical Report ---
Date of Service February 18, 2022 Assessment & Plan (1) Weakness: (2) Acute hyponatremia: Plan: This is a 66-year-old female with PMH of Parkinson's disease, iron deficiency anemia, restless leg syndrome and other medical problems listed below who presents with weight loss and generalized weakness and was found to have hyponatremia. Poor p.o. intake, decreased appetite Per chart review, sodium within normal range in the past but noted to be 130 on 02/16/2022 and 126 today Endorses nausea and weakness, denies vomiting. No confusion Urine sodium and creatinine pending Giving 1 L NSS and will recheck BMP this evening Consider nephrology consult if no improvement Fall precautions. PT/OT evaluation (3) Weight loss: Plan: Unintentional 50 pound weight loss over the past [address] chest without con and abdominal and pelvis without con to rule out any masses Continue Ensure supplementation (4) Parkinson's disease: Plan: Follows with [place] neurology. Continue Sinemet. Prescribed amantadine earlier this week but has not yet started medication (5) Urinary symptom or sign: Plan: Increased frequency and urgency over the past week, weakness Unable to provide urine sample but okay with straight cath - follow up on UA Afebrile, no leukocytosis (6) Elevated BP without diagnosis of hypertension: Plan: BP elevated in ED at 185/105 in setting of anxiety Normal BP in clinic yesterday PRN IV hydralazine (7) Sinus tachycardia: Plan: EKG with sinus tach at 106 bpm. Denies any chest pain or palpitations. High- sensitivity troponin within normal limits. Admits to being anxious. Repeat EKG in the a.m. (8) GERD (gastroesophageal reflux disease): Plan: Recently started on PPI. Continue DVT Ppx: SQ heparin Code status: FULL PCP: Connor Dispo: Admitted to PCU Patient seen in collaboration with Dr. Scales. Please see addendum. History of Present Illness Chief Complaint: generalized weakness Primary Care Provider: Concepción Cline PA-C This is a 66-year-old female with PMH of Parkinson's disease, iron deficiency anemia, restless leg syndrome and other medical problems listed below who presents with weight loss and generalized weakness. Per outpatient chart, patient has lost 50 pounds in the past 2 years in the setting of decreased appetite. Does have some nausea but has been drinking Ensure, [place] instant breakfast over the past few weeks. States she eats burgers and pizza and is not intending to lose weight. Over the past 2 weeks, patient has become more generally weak. Denies any focal weakness or falls. No fever, chills, congestion or cough. No chest pain or palpitations. No shortness of breath. Has intermittent nausea but denies any vomiting. Has ongoing constipation issues from iron supplement but had bowel movement this morning. States she has experienced increased urinary frequency and urgency over the past week but denies any hematuria, dysuria. Follows with neurologist Dr. Dean in [place] who added Amantadine 100mg earlier this week to help with dyskinesias, she is yet to start. Outpatient lab work from earlier this week revealed a sodium of 130. Patient lives at home and does not currently use any assistive devices to ambulate. Allergies Allergy/AdvReac Type Severity Reaction Status Date / Time No Known Allergies Allergy Verified 02/18/22 16:55 Home Medications Medication Instructions Recorded Confirmed Type Lactobacillus acidophilus 10 10,000 mmu cells PO QDL 02/18/22 02/18/22 History billion cell capsule (Probiotic) acetaminophen 650 mg 650 mg PO HS 02/18/22 02/18/22 History tablet,extended release (Tylenol 8 Hour) amantadine HCl 100 mg capsule 100 mg PO DAILY 02/18/22 02/18/22 History bismuth subsalicylate 262 mg/15 mL 524 mg PO Q4H PRN Gi Upset 02/18/22 02/18/22 History oral suspension (Pepto-Bismol) carbidopa ER 25 mg-levodopa 100 mg 1.5 tab PO 5XD 02/18/22 02/18/22 History tablet,extended release carbidopa ER 50 mg-levodopa 200 mg 1 tab PO HS 02/18/22 02/18/22 History tablet,extended release ferrous sulfate 325 mg (65 mg 325 mg PO DAILY 02/18/22 02/18/22 History iron) tablet loperamide 2 mg capsule (Imodium 2 mg PO QID PRN Diarrhea 02/18/22 02/18/22 History A-D) magnesium 250 mg tablet 250 mg PO DAILY 02/18/22 02/18/22 History multivitamin with minerals 1 tab PO DAILY 02/18/22 02/18/22 History omeprazole 40 mg capsule,delayed 40 mg PO DAILY 02/18/22 02/18/22 History release Past Med/Surg History Medical History GERD (gastroesophageal reflux disease) Parkinson's disease Surgical History History of colonoscopy History of esophagogastroduodenoscopy Family History Other Diabetes Heart disease Social History Smoking Status: Never smoker Preferred Language: Kiny[place] marital status: / current occupational status: retired Feels Safe at Home: Yes Review of Systems Review of Systems: At least ten systems reviewed and negative except as noted in the HPI. Physical Exam Physical Exam: General Appearance: WD/WN, vitals as above, NAD, sitting up in bed, pleasant, anxious Head: normocephalic, atraumatic Eyes: normal inspection, PERRL, conjunctivae normal, anicteric sclerae ENT: external ear and nose normal, oropharynx normal Neck: normal visual inspection, trachea midline, no thyromegaly Respiratory: normal respiratory effort, lungs clear to auscultation, no wheeze, rales, rhonchi. No accessory muscle use Cardiovascular: tachycardic rate, regular rhythm, no murmur, normal peripheral pulses, no BLE edema. Vessels: no JVD Chest: normal inspection of chest Abdomen/GI: normal bowel sounds, soft, mild TTP of LLQ, no guarding, no hepatosplenomegaly Extremities/Musculoskeletal: no cyanosis or clubbing, extremities motor strength 5/5 Neurologic: PERRL, EOMI, accommodation nl, no face palsy, no dysarthria, CN's II-XI intact bilaterally and moves all extremities Psychiatric: A+Ox3, anxious Skin: no rashes, normal color, warm/dry Results & Data Results & Data ([facility]) Vital Signs (Past 12 Hours) Vital Signs Temp Pulse Pulse Resp BP BP Pulse Ox 02/18/22 15:49 110 H 19 194/114 H 98 02/18/22 14:13 36.7 C 109 H 20 170/106 H 96 O2 Del Method 02/18/22 15:49 Room Air 02/18/22 14:13 Room Air Laboratory Results Short CBC 02/18/22 Range/Units 15:15 WBC 9.08 (4.8-10.8) K/ul Hgb 13.0 (12.0-16.0) g/dl Hct 37.3 (34.1-44.9) % Plt Count 394 (130-400) K/uL BMP 02/18/22 15:15 Sodium 126 L Potassium 4.2 Chloride 94 L Carbon Dioxide 24 BUN 9 Creatinine 0.53 L Glucose 117 H Calcium 9.4 Liver Function 02/18/22 Range/Units 15:15 Total Bilirubin 0.4 (0.2-1.0) mg/dl AST 18 (13-39) U/L ALT 8 (7-52) U/L Alkaline Phosphatase 51 (34-104) U/L Albumin 4.6 (3.4-5.0) gm/dl Diagnostic Findings Chest X-Ray 02/18/22 14:17 XR chest 2V PA/lateral CLINICAL HISTORY: weakness TECHNIQUE: 2 views of the chest were obtained. Comparison: None available at the time of this dictation. FINDINGS: No lines and tubes are seen. The cardiomediastinal silhouette is normal. The lungs are clear. No evidence of pleural effusion or pneumothorax. Degenerative changes are seen in the spine. IMPRESSION: No acute chest disease. ACT 112: Negative or not required by law. Electronically signed by: Niko Ritchie M.D. 02/18/2022 3:10 PM ECG Additional Comments: Sinus tachycardia 106 bpm Code Status & VTE Plan VTE Prophylaxis Plan VTE Prophylaxis will be ordered: Yes Supervising Physician Co-Signing Physician Notes Attending Addendum: care coordinated with LACIE Buckley please refer to her notes for full details, I agree with her notes patient seen and examined, records reviewed by myself as well on exam, patient seen resting in bed, not in distress feels weak, having low back pain from laying in bed no chest pain, dyspnea, palpitations, dizziness no other symptoms VS noted and reviewed oriented x 3, not in distress, speaks in sentences with no effort nor accessory muscle use normal rate, regular rhythm, no murmurs clear breath sounds bilaterally non distended, soft, nontender no bipedal edema, erythema, warmth no neuro deficits labs and imaging reviewed ASSESSMENT AND PLAN GENERALIZED WEAKNESS, HISTORY OF PARKINSON no medication changes prior to onset of weakness no clear focus of infection from progression of Parkinson? deconditioning? from hyponatremia? continue usual Sinemet for now, PT/OT serum osm, urine osm and Na pending, IV fluids given, repeat Na at 10pm may need inpatient Rehab, although patient prefers to return home UNINTENTIONAL WEIGHT LOSS 15 pounds, for the past [address] chest, abd/pelvis to rule out malignancy Boost TID DYSPHAGIA TO LARGE PILLS noted at the ER crush all meds Speeech Tx consult other diagnoses and plan of care as per LACIE Buckley's notes Je Scales MD
[2022-02-18 17:15] LABS: Troponin I High Sensitivity 4.7 pg/ml (0-14)
[2022-02-18] MEDS ORDERED: hydrALAZINE HCL 20 MG/ML VIAL IV PRN (17:43)
[2022-02-18] MEDS ORDERED: BISMUTH SUBSALICYLATE LIQD 236 ML PO PRN (17:45)
--- NOTE | 2022-02-18 18:18 | CT Scan Report ---
CT chest diagnostic wo con CLINICAL HISTORY: weight loss TECHNIQUE: Multidetector row helical CT of the chest was performed. Coronal and sagittal reformations were obtained. Automated dose lowering techniques and/or adjustment according to patient size were u tilized for this exam. CT DOSE: 445.81 mGycm Comparison: None available at the time of this dictation. FINDINGS: Lungs and pleura: Atelectasis is seen in the lung bases. No suspicious pulmonary nodules are seen. Heart and pericardium: Heart size is normal. No pericardial effusion. Vessels: Moderate atherosclerotic changes in the aorta and coronary arteries. Mediastinum and lety: No lymphadenopathy is seen. The esophagus is mildly patulous. Chest wall and lower neck: Unremarkable. Abdomen: For findings below the diaphragm, please refer to CT of the abdomen dated the same. Bones: Degenerative changes in the thoracic spine. There is loss of height of the T6 vertebral body. IMPRESSION: Unremarkable evaluation of the chest. No evidence of malignancy. ACT 112: Negative or not required by law. Electronically signed by: Niko Ritchie M.D. 02/18/2022 6:16 PM
--- NOTE | 2022-02-18 18:23 | CT Scan Report ---
CT abd pelvis wo con CLINICAL HISTORY: LLQ pain, weight loss TECHNIQUE: Helical axial images of the abdomen and pelvis were obtained. Automated dose lowering tech niques and/or adjustment according to patient size were utilized for this exam. This exam was perfor med without intravenous contrast. COMPARISON: None available at the time of this dictation. FINDINGS: Lower chest: For findings above the diaphragm, please see CT chest performed same day. Liver: Unremarkable. No focal lesions are seen. Gallbladder and biliary tree: No calcified gallstones. Normal caliber wall. No intra- or extrahepatic biliary ductal dilation. Pancreas: Unremarkable, no focal lesions. Spleen: Unremarkable. Adrenals: Unremarkable. Kidneys and ureters: Unremarkable. Bladder: Unremarkable. Reproductive organs: Unremarkable. Bowel: Unremarkable appearance of the bowel. The appendix is normal. Lymph nodes Retroperitoneal: Unremarkable. Pelvic: Unremarkable. Mesenteric: Unremarkable. Peritoneum: Normal. Vessels: Atherosclerotic calcifications are seen. Abdominal wall: Unremarkable. Bones: Degenerative changes in the visualized spine. IMPRESSION: No acute abnormality. In particular no evidence of malignancy or diverticulitis. ACT 112: Negative or not required by law. Electronically signed by: Niko Ritchie M.D. 02/18/2022 6:21 PM
[2022-02-18] MEDS ORDERED: ACETAMINOPHEN 325 MG TAB ONE (19:15)
[2022-02-18] MEDS ORDERED: LORazepam 0.5 MG TAB PO STA (19:16)
[2022-02-18] MEDS ORDERED: ACETAMINOPHEN 500 MG TAB ONE (19:22)
[2022-02-18] MEDS: ACETAMINOPHEN 500 MG TAB PO STA ×2 (19:25→19:42)
[2022-02-18] MEDS ORDERED: ACETAMINOPHEN 1,000 MG/100 ML VIAL IV STA (20:11)
[2022-02-18] MEDS: ACETAMINOPHEN 325 MG TAB PO SCH (20:14)
[2022-02-18 21:06] LABS: Appearance Urine Clear (Clear); Bacteria Urine Automated Negative (Negative); Bilirubin Urine Negative (Negative); Blood Urine 1+ (Negative); Color Urine Yellow; Epithelial Cell Urine Auto 0-5 /lpf (0-5); Glucose Urine UA Negative (Negative); Ketones Urine 2+ (Negative); Leukocyte Esterase Urine Negative (Negative); Nitrite Urine Negative (Negative); Protein Urine Negative (Negative); Specific Gravity Urine 1.014 (1.000-1.030); Urobilinogen Urine Negative (Negative); pH Urine 7.5 (4.5-7.5)
[2022-02-18] MEDS: HEPARIN SOD 5,000 UNIT/0.5 ML VIAL SQ SCH (22:26)
[2022-02-18] MEDS: CARBIDOPA/LEVODOPA 50/200MG EXT REL TAB PO SCH (22:27)
[2022-02-18 23:19] LABS: Calcium 9.2 mg/dl (8.5-10.1); Creatinine Clr Calc Pharmacy 86.6 ml/min; Est GFR (African American) 119.3 ml/min; Est GFR (Non-African American) 102.9 ml/min; Potassium 3.9 mmol/L (3.5-5.1)
[2022-02-19] MEDS: CARBIDOPA/LEVODOPA 25/100MG TAB PO SCH ×5 (05:04→18:30)
[2022-02-19] MEDS: PANTOprazole 40 MG TAB PO SCH (08:05)
[2022-02-19] MEDS: FERROUS SULFATE 325 MG TAB PO SCH ×2 (08:05→08:09)
[2022-02-19] MEDS: MAGNESIUM OXIDE 400 MG TAB PO SCH (08:06)
[2022-02-19] MEDS: MULTIVITAMIN TAB PO SCH (08:06)
[2022-02-19 09:31] LABS: Hematocrit (blood only) 37.5 % (34.1-44.9); Mean Corpuscular Hemoglobin 31.3 pg (25.0-34.0); Mean Corpuscular Hgb Conc 34.7 g/dL (32.0-36.0); Mean Corpuscular Volume 90.1 fL (80.0-100.0); Mean Platelet Volume 8.7 fL (9.4-12.3); Platelet Count 368 K/uL (130-400); RDW Coefficient of Variation 13.3 % (11.5-14.5); RDW Standard Deviation 43.8 fL (36.4-46.3); Red Blood Count 4.16 M/uL (3.93-5.22); White Blood Count 8.69 K/ul (4.8-10.8)
[2022-02-19 10:01] LABS: BUN Creatinine Ratio 14.6 (10-20); Calcium 9.3 mg/dl (8.5-10.1); Creatinine Clr Calc Pharmacy 82.2 ml/min; Est GFR (African American) 117.6 ml/min; Est GFR (Non-African American) 101.5 ml/min; Potassium 3.6 mmol/L (3.5-5.1)
[2022-02-19] MEDS: HEPARIN SOD 5,000 UNIT/0.5 ML VIAL SQ SCH ×2 (10:15→20:44)
[2022-02-19] MEDS: ADVANCED PROBIOTIC 1250 MG CAPSULE PO SCH (11:26)
[2022-02-19] MEDS: ACETAMINOPHEN 325 MG TAB PO PRN (18:47)
--- NOTE | 2022-02-19 18:57 | Hospitalist Progress Note ---
Date of Service February 19, 2022 Assessment & Plan (1) Weakness: (2) Acute hyponatremia: Plan: Present on admission with generalized weakness, weight loss and hyponatremia Na on admission 126, sodium within normal range in the past but noted to be 130 on 02/16/2022 Possible related to poor intake and increase water intake ( family said pt drink alot of water) received IVF, Na 125 today Urine sodium and creatinine normal Nephrology consulted Consider fluid restriction to 1.5L daily, will discuss it with nephrology Increase PO intake (3) Weight loss: Plan: Unintentional 50 pound weight loss over the past [address] chest abdominal and pelvis showed acute finding. unfortunately Imaging were done without contrast Continue Ensure supplementation (4) Parkinson's disease: Plan: Follows with [place] [facility]. Continue Sinemet. Prescribed amantadine earlier this week but has not yet started medication (5) Urinary symptom or sign: Plan: Afebrile, no leukocytosis UA showed no sign of infection (6) Elevated BP without diagnosis of hypertension: Plan: BP elevated in ED at 185/105 in setting of anxiety BP improved (7) Sinus tachycardia: Plan: Mostly due to anxiety Denies any chest pain or palpitations. High-sensitivity troponin within normal limits. stable (8) GERD (gastroesophageal reflux disease): Plan: Continue PPI DVT Ppx: SQ heparin Code status: FULL PCP: Connor Disposition will discharge once medically stable Admission and Anticipated Discharge Date Admission Date: February 18, 2022 Subjective Pt was seen and examined for follow up of weakness and hyponatremia Sitting in chair with no distress with family member at bedside Pt said that she feels alot better today She said that her energy and appetite improved today Denies any chest pain, palpitation, dizziness and SOB Review of Systems Review of Systems: All systems reviewed & are unremarkable except as noted in Subjective Physical Exam Physical Exam: General- No acute distress Head- atraumatic Eyes- PERRL, EOMI, ENT- oropharynx clear Neck- supple, no JVD Lungs- clear to auscultation Heart- regular rhythm; no murmur Abdomen- normal bowel sounds, soft, nontender Extremities- no calf tenderness Neuro- alert, oriented x 3; PERRL, EOMI; no facial palsy; no dysarthria Skin- warm & dry Results & Data Results & Data ([facility]) Vital Signs (Past 12 Hours) Vital Signs Temp Pulse Pulse Resp BP Pulse Ox O2 Del Method 02/19/22 16:43 36.5 C 99 H 18 146/85 H 96 Room Air 02/19/22 13:20 36.6 C 103 H 18 113/61 100 02/19/22 11:20 111 H 02/19/22 07:38 36.8 C 102 H 18 116/79 96 Room Air
--- NOTE | 2022-02-19 19:47 | Consultation Report ---
NEPHROLOGY CONSULTATION NOTE DATE OF SERVICE: 02/19/2022. REASON FOR CONSULT: Hyponatremia. HISTORY OF PRESENT ILLNESS: The patient is a 66-year-old female with history of Parkinson's disease, who presented to the hospital with generalized weakness, weight loss. She has lost 50 pounds in the last 2 years in the setting of decreased appetite. She was having nausea and poor appetite and was not really eating much solid food; however, she was drinking lots of liquid, it appears. She drinks a bout 5 bottles of water as well as 2 Gatorade, plus coffee giving approximately 120 ounces of liquid per day by her account. She was not having any shortness of breath, orthopnea, or lower extremity ed jorge. She was brought to the hospital because of abnormal labs by her sister. She had outpatient lab s done earlier this week, which showed serum sodium of 130. After that, she was drinking more liquid s and on admission, sodium was 126. Since being admitted, she has received 1 liter of normal saline, but with that serum sodium actually went down to 125. Urine sodium is 139. Urine osmolality has no t been done yet. ALLERGIES: None. MEDICATIONS: Home medication list was reviewed in detail and is as per the reconciliation and H and P. PAST MEDICAL AND SURGICAL HISTORY: Includes GERD, Parkinson, colonoscopy, EGD, restless legs syndrom e, iron-deficiency anemia. SOCIAL HISTORY: She is a , retired, lives at home. Never smoked. No alcohol. FAMILY HISTORY: Negative for renal disease or dialysis. REVIEW OF SYSTEMS: As detailed in the HPI; unless stated otherwise, 12 systems reviewed and negative . Positive review of systems includes nausea, poor appetite, ongoing weight loss. PHYSICAL EXAMINATION: GENERAL: A middle-aged white female who does not appear to be in any respiratory distress. She does appear to be somewhat anxious. She is awake, alert, oriented x3. VITAL SIGNS: Blood pressure is 146/85, pulse rate 99, temperature 36.5, 95% on room air. HEENT: Mucous membrane is moist. NECK: Supple. No JVD. CHEST: Bilaterally clear to auscultation. CARDIOVASCULAR: S1 and S2 regular. ABDOMEN: Soft, nontender. EXTREMITIES: Show no edema. LABORATORY TEST: Shows serum sodium of 130 a few days prior to hospitalization, on admission yesterd ay was 126, this morning is 125. Potassium is 3.6, creatinine is 0.48. ASSESSMENT AND PLAN: A 66-year-old female admitted with generalized weakness and was found to have h yponatremia, for which I have been consulted. Hyponatremia: She appears euvolemic. Serum sodium has dropped relatively quick. We do not have the full testing yet to know the exact etiology, but the pattern of the sodium fits more with syndrome of inappropriate secretion of antidiuretic hormone with excessive fluid intake. We do need urine osmol ality and serum osmolality to further categorize the etiology of renal failure. She was drinking exc essive amount of liquid with around 120 ounces per day. We will put her on fluid restriction of 1500 mL per day. No need of normal saline. We will add urea 15 grams twice daily for at least a few dos es. Thank you very much for the consult. Job ID: [id number]
[2022-02-19] MEDS: ACETAMINOPHEN 325 MG TAB PO SCH (20:43)
[2022-02-19] MEDS: CARBIDOPA/LEVODOPA 50/200MG EXT REL TAB PO SCH (20:44)
[2022-02-19] MEDS: UREA (UREA-NA) 15 GM PACK PO SCH (20:45)
[2022-02-20] MEDS: CARBIDOPA/LEVODOPA 25/100MG TAB PO SCH ×5 (05:01→16:54)
--- NOTE | 2022-02-20 05:47 | Electrocardiogram Report ---
Test Reason : Blood Pressure : / mmHG Vent. Rate : 106 BPM Atrial Rate : 106 BPM P-R Int : 140 ms QRS Dur : 076 ms QT Int : 320 ms P-R-T Axes : 045 007 053 degrees QTc Int : 425 ms Poor data quality, interpretation may be adversely affected Sinus tachycardia Otherwise normal ECG When compared with ECG of 03-JAN-2017 09:47, No significant change Confirmed by Darron King ([id number]) on 02/20/2022 5:47:29 AM Referred By: Confirmed By:Darron King
--- NOTE | 2022-02-20 06:16 | Electrocardiogram Report ---
Test Reason : Blood Pressure : / mmHG Vent. Rate : 095 BPM Atrial Rate : 095 BPM P-R Int : 146 ms QRS Dur : 072 ms QT Int : 348 ms P-R-T Axes : 031 -04 014 degrees QTc Int : 437 ms Normal sinus rhythm Nonspecific T wave abnormality When compared with ECG of 18-FEB-2022 15:12, No significant change was found Confirmed by Darron King ([id number]) on 02/20/2022 6:16:16 AM Referred By: REFERRED SELF Confirmed By:Darron King
[2022-02-20 06:54] LABS: Hematocrit (blood only) 36.3 % (34.1-44.9); Hemoglobin 12.5 g/dl (12.0-16.0); Mean Corpuscular Hemoglobin 30.9 pg (25.0-34.0); Mean Corpuscular Hgb Conc 34.4 g/dL (32.0-36.0); Mean Corpuscular Volume 89.9 fL (80.0-100.0); Mean Platelet Volume 9.4 fL (9.4-12.3); Platelet Count 360 K/uL (130-400); RDW Coefficient of Variation 13.2 % (11.5-14.5); RDW Standard Deviation 43.6 fL (36.4-46.3); Red Blood Count 4.04 M/uL (3.93-5.22)
[2022-02-20 07:14] LABS: BUN Creatinine Ratio 22.4 (10-20); Calcium 9.3 mg/dl (8.5-10.1); Creatinine Clr Calc Pharmacy 79.9 ml/min; Est GFR (African American) 116.8 ml/min; Est GFR (Non-African American) 100.8 ml/min; Potassium 3.9 mmol/L (3.5-5.1)
[2022-02-20] MEDS ORDERED: ONDANSETRON INJ 2 MG/ML 2 ML VIAL IV PRN (08:41)
[2022-02-20] MEDS: PANTOprazole 40 MG TAB PO SCH (09:25)
[2022-02-20] MEDS: MULTIVITAMIN TAB PO SCH (09:25)
[2022-02-20] MEDS: HEPARIN SOD 5,000 UNIT/0.5 ML VIAL SQ SCH ×2 (09:26→20:07)
[2022-02-20] MEDS: FERROUS SULFATE 325 MG TAB PO SCH (09:26)
[2022-02-20] MEDS: UREA (UREA-NA) 15 GM PACK PO SCH (09:27)
[2022-02-20] MEDS: MAGNESIUM OXIDE 400 MG TAB PO SCH (09:52)
--- NOTE | 2022-02-20 10:55 | Nephrology Progress Note ---
Date of Service February 20, 2022 Assessment & Plan Admission and Anticipated Discharge Date Admission Date: February 18, 2022 Subjective S---Not in good mood. Does not want to take urea-NA. appetite is low. No SOB/e deisy PHYSICAL EXAMINATION: GENERAL: A middle-aged white female who does not appear to be in any respiratory distress. She does appear to be somewhat anxious. She is awake, alert, oriented x3. VITAL SIGNS: Blood pressure is 146/85, pulse rate 99, temperature 36.5, 95% on room air. HEENT: Mucous membrane is moist. NECK: Supple. No JVD. CHEST: Bilaterally clear to auscultation. CARDIOVASCULAR: S1 and S2 regular. ABDOMEN: Soft, nontender. EXTREMITIES: Show no edema. LABORATORY TEST: Shows serum sodium of 130 a few days prior to hospitalization, still running the 125-127 range ASSESSMENT AND PLAN: A 66-year-old female admitted with generalized weakness and was found to have hyponatremia, for which I have been consulted. Hyponatremia: She appears euvolemic. Serum sodium has dropped relatively quick. Cause is syndrome of inappropriate secretion of antidiuretic hormone with excessive fluid intake.She was drinking excessive amount of liquid with around 120 ounces per day. We will put her on fluid restriction of 1500 mL per day. rec: 1 Stop urea-NA--pt request. 2 ns at 75/hr. 3 Lasix 20 iv tid. 4 BMP q12. . Results & Data ([facility]) Vital Signs (Past 12 Hours) Vital Signs Temp Pulse Pulse Resp BP Pulse Ox O2 Del Method 02/20/22 03:20 36.8 C 112 H 18 170/93 H 97 Room Air 02/19/22 23:15 68
[2022-02-20] MEDS: FUROSEMIDE INJ 20 MG/2 ML VIAL IV SCH ×2 (11:52→20:04)
[2022-02-20] MEDS: ADVANCED PROBIOTIC 1250 MG CAPSULE PO SCH (11:53)
[2022-02-20] MEDS: SODIUM CHLORIDE 0.9% 1000ML 1,000 ML IV SCH (11:53)
[2022-02-20 12:04] LABS: BUN Creatinine Ratio 22.9 (10-20); Calcium 9.5 mg/dl (8.5-10.1); Creatinine Clr Calc Pharmacy 81.5 ml/min; Est GFR (African American) 117.6 ml/min; Est GFR (Non-African American) 101.5 ml/min; Potassium 3.9 mmol/L (3.5-5.1)
[2022-02-20] MEDS ORDERED: LORazepam 0.5 MG TAB PO STA (15:51)
[2022-02-20 16:07] LABS: Appearance Urine Clear (Clear); Bacteria Urine Automated 4+ (Negative); Bilirubin Urine Negative (Negative); Blood Urine 1+ (Negative); Color Urine Yellow; Glucose Urine UA Negative (Negative); Ketones Urine Trace (Negative); Leukocyte Esterase Urine Trace (Negative); Nitrite Urine Negative (Negative); Protein Urine Negative (Negative); Specific Gravity Urine 1.008 (1.000-1.030); Urobilinogen Urine Negative (Negative); pH Urine 6.5 (4.5-7.5)
[2022-02-20] MEDS: DOCUSATE SODIUM 100 MG CAP PO PRN (16:53)
[2022-02-20] MEDS: ACETAMINOPHEN 325 MG TAB PO SCH (20:05)
[2022-02-20] MEDS: CARBIDOPA/LEVODOPA 50/200MG EXT REL TAB PO SCH (20:07)
--- NOTE | 2022-02-20 21:58 | Hospitalist Progress Note ---
Date of Service February 20, 2022 Assessment & Plan (1) Weakness: (2) Acute hyponatremia: Plan: Present on admission with generalized weakness, weight loss and hyponatremia Na on admission 126, sodium within normal range in the past but noted to be 130 on 02/16/2022 Possible related to poor intake and increase water intake ( family said pt drink alot of water) received IVF, Na 126 today Urine sodium and creatinine normal Nephrology consulted Continue fluid restriction with 1.5L daily Nephro started her on gentle hydration with IV lasix 20mg IV TID Urea Na stopped at pt request Continue monitor BMP (3) Weight loss: Plan: Unintentional 50 pound weight loss over the past [address] chest abdominal and pelvis showed acute finding. unfortunately Imaging were done without contrast Continue Ensure supplementation (4) Parkinson's disease: Plan: Follows with [place] [facility]. Continue Sinemet. Prescribed amantadine earlier this week but has not yet started medication (5) Urinary symptom or sign: Plan: Afebrile, no leukocytosis UA showed no sign of infection (6) Elevated BP without diagnosis of hypertension: Plan: BP elevated in ED at 185/105 in setting of anxiety BP improved (7) Sinus tachycardia: Plan: Mostly due to anxiety Denies any chest pain or palpitations. High-sensitivity troponin within normal limits. stable (8) GERD (gastroesophageal reflux disease): Plan: Continue PPI DVT Ppx: SQ heparin Code status: FULL PCP: Connor Disposition will discharge once medically stable Admission and Anticipated Discharge Date Admission Date: February 18, 2022 Subjective Pt was seen and examined for follow up of weakness and hyponatremia Lying in bed with no acute distress Pt was very tense this morning and staff notified her to have some weird behavior Pt said that she feels anxious Denies any chest pain, palpitation, dizziness and SOB Review of Systems Review of Systems: All systems reviewed & are unremarkable except as noted in Subjective Physical Exam Physical Exam: General- No acute distress Head- atraumatic Eyes- PERRL, EOMI, ENT- oropharynx clear Neck- supple, no JVD Lungs- clear to auscultation Heart- regular rhythm; no murmur Abdomen- normal bowel sounds, soft, nontender Extremities- no calf tenderness Neuro- alert, oriented x 3; PERRL, EOMI; no facial palsy; no dysarthria Skin- warm & dry Results & Data Results & Data ([facility]) Vital Signs (Past 12 Hours) Vital Signs Temp Pulse Pulse Resp BP Pulse Ox O2 Del Method 02/20/22 19:44 36.9 C 90 16 127/71 97 Room Air 02/20/22 17:39 36.6 C 114 H 18 143/83 H 97 Room Air 02/20/22 12:10 98 H 02/20/22 12:10 Room Air 02/20/22 11:50 36.6 C 113 H 18 182/110 H 97 Room Air
[2022-02-21 01:24] LABS: BUN Creatinine Ratio 15.1 (10-20); Calcium 9.3 mg/dl (8.5-10.1); Creatinine Clr Calc Pharmacy 73.9 ml/min; Est GFR (African American) 113.9 ml/min; Est GFR (Non-African American) 98.2 ml/min; Potassium 3.7 mmol/L (3.5-5.1)
[2022-02-21] MEDS: SODIUM CHLORIDE 0.9% 1000ML 1,000 ML IV SCH ×2 (01:54→13:47)
[2022-02-21] MEDS: FUROSEMIDE INJ 20 MG/2 ML VIAL IV SCH ×3 (03:14→19:39)
[2022-02-21] MEDS: CARBIDOPA/LEVODOPA 25/100MG TAB PO SCH ×5 (05:41→17:56)
[2022-02-21] MEDS ORDERED: LORazepam 0.5 MG TAB PO STA (08:02)
[2022-02-21] MEDS: FERROUS SULFATE 325 MG TAB PO SCH (08:19)
[2022-02-21] MEDS: MULTIVITAMIN TAB PO SCH (08:19)
[2022-02-21] MEDS: HEPARIN SOD 5,000 UNIT/0.5 ML VIAL SQ SCH ×2 (08:20→20:19)
[2022-02-21] MEDS: PANTOprazole 40 MG TAB PO SCH (08:20)
[2022-02-21] MEDS: DOCUSATE SODIUM 100 MG CAP PO PRN (08:25)
[2022-02-21] MEDS: MAGNESIUM OXIDE 400 MG TAB PO SCH (08:25)
[2022-02-21] MEDS: cefTRIAXone SODIUM 1,000 MG in DEXTROSE 5% 50 ML IV SCH (10:30)
[2022-02-21] MEDS: ADVANCED PROBIOTIC 1250 MG CAPSULE PO SCH (11:43)
[2022-02-21 11:58] LABS: BUN Creatinine Ratio 17.6 (10-20); Calcium 9.3 mg/dl (8.5-10.1); Creatinine Clr Calc Pharmacy 75.5 ml/min; Est GFR (African American) 115.3 ml/min; Est GFR (Non-African American) 99.5 ml/min; Potassium 3.7 mmol/L (3.5-5.1)
--- NOTE | 2022-02-21 12:16 | Nephrology Progress Note ---
Date of Service February 21, 2022 Assessment & Plan Admission and Anticipated Discharge Date Admission Date: February 18, 2022 Subjective Subjective S---No new issues. appetite is low. No SOB/edema PHYSICAL EXAMINATION: GENERAL: A middle-aged white female who does not appear to be in any respiratory distress. She does appear to be somewhat anxious. She is awake, alert, oriented x3. VITAL SIGNS: Blood pressure is 146/85, pulse rate 99, temperature 36.5, 95% on room air. HEENT: Mucous membrane is moist. NECK: Supple. No JVD. CHEST: Bilaterally clear to auscultation. CARDIOVASCULAR: S1 and S2 regular. ABDOMEN: Soft, nontender. EXTREMITIES: Show no edema. LABORATORY TEST: Shows serum sodium of 130 a few days prior to hospitalization, still running the 125-127 range ASSESSMENT AND PLAN: A 66-year-old female admitted with generalized weakness and was found to have hyponatremia, for which I have been consulted. Hyponatremia: She appears euvolemic. Serum sodium has dropped relatively quick. Cause is syndrome of inappropriate secretion of antidiuretic hormone with excessive fluid intake.She was drinking excessive amount of liquid with around 120 ounces per day. We will put her on fluid restriction of 1500 mL per day. rec: 1 Stopped urea-NA--pt request. 2 Continue ns at 80/hr. 3 Lasix 30 iv tid. 4 BMP q12. 5 FFR ower to 1200 ml 6 K.cl 20 bid for diuretics Results & Data ([facility]) Vital Signs (Past 12 Hours) Vital Signs Temp Pulse Pulse Resp BP BP Pulse Ox 02/21/22 12:03 36.6 C 93 H 18 127/66 100 02/21/22 07:45 93 H 02/21/22 08:54 37.0 C 106 H 20 99/65 L 96 02/21/22 03:34 36.7 C 109 H 16 167/98 H 98 O2 Del Method 02/21/22 12:03 Room Air 02/21/22 07:45 02/21/22 08:54 Room Air 02/21/22 03:34 Room Air
[2022-02-21] MEDS ORDERED: FUROSEMIDE INJ 20 MG/2 ML VIAL IV ONE (12:30)
[2022-02-21] MEDS: POTASSIUM CHLORIDE CRTAB 20 MEQ TABCR PO SCH ×2 (13:47→19:41)
--- NOTE | 2022-02-21 14:14 | Hospitalist Progress Note ---
Date of Service February 21, 2022 Assessment & Plan (1) Weakness: (2) Acute hyponatremia: Plan: Present on admission with generalized weakness, weight loss and hyponatremia Na on admission 126, sodium within normal range in the past but noted to be 130 on 02/16/2022 Possible related to poor intake and increase water intake ( family said pt drink alot of water) received IVF, Na 127 today Urine sodium and creatinine normal Nephrology on board Continue fluid restriction with 1.2L daily Lasix increased to 30mg TID as per nephrology Pt encouraged to increase PO intake Continue monitor BMP (3) Weight loss: Plan: Unintentional 50 pound weight loss over the past [address] chest abdominal and pelvis showed acute finding. unfortunately Imaging were done without contrast Continue Ensure supplementation (4) Parkinson's disease: Plan: Follows with [place] [facility]. Continue Sinemet. Prescribed amantadine earlier this week but has not yet started medication (5) Urinary symptom or sign: Plan: UTI Urine cx positive for gram negative bacilli Rocephin 1 gram added Will follow urine sensitivity (6) Elevated BP without diagnosis of hypertension: Plan: BP elevated in ED at 185/105 in setting of anxiety BP stable (7) Sinus tachycardia: Plan: Mostly due to anxiety Denies any chest pain or palpitations. High-sensitivity troponin within normal limits. stable Anxiety Will continue Ativan PRN BID while in the hospital continue monitor (8) GERD (gastroesophageal reflux disease): Plan: Continue PPI DVT Ppx: SQ heparin Code status: FULL PCP: oCnnor Disposition will discharge once medically stable Admission and Anticipated Discharge Date Admission Date: February 18, 2022 Subjective Pt was seen and examined for follow up of weakness and hyponatremia Sitting in chair with no acute distress watching TV pt said that the Ativan seems to relax her yesterday and asked for another one today Denies any chest pain, palpitation, dizziness and SOB Review of Systems Review of Systems: All systems reviewed & are unremarkable except as noted in Subjective Physical Exam Physical Exam: General- No acute distress Head- atraumatic Eyes- PERRL, EOMI, ENT- oropharynx clear Neck- supple, no JVD Lungs- clear to auscultation Heart- regular rhythm; no murmur Abdomen- normal bowel sounds, soft, nontender Extremities- no calf tenderness Neuro- alert, oriented x 3; PERRL, EOMI; no facial palsy; no dysarthria Skin- warm & dry Results & Data Results & Data ([facility]) Vital Signs (Past 12 Hours) Vital Signs Temp Pulse Pulse Resp BP BP Pulse Ox 02/21/22 12:03 36.6 C 93 H 18 127/66 100 02/21/22 07:45 93 H 02/21/22 08:54 37.0 C 106 H 20 99/65 L 96 02/21/22 03:34 36.7 C 109 H 16 167/98 H 98 O2 Del Method 02/21/22 12:03 Room Air 02/21/22 07:45 02/21/22 08:54 Room Air 02/21/22 03:34 Room Air
[2022-02-21] MEDS: CARBIDOPA/LEVODOPA 50/200MG EXT REL TAB PO SCH (19:41)
[2022-02-21] MEDS: ACETAMINOPHEN 325 MG TAB PO SCH (20:19)
[2022-02-22] MEDS: SODIUM CHLORIDE 0.9% 1000ML 1,000 ML IV SCH ×2 (02:20→12:59)
[2022-02-22] MEDS: FUROSEMIDE INJ 20 MG/2 ML VIAL IV SCH ×2 (04:29→12:59)
[2022-02-22] MEDS: CARBIDOPA/LEVODOPA 25/100MG TAB PO SCH ×5 (05:54→16:49)
[2022-02-22] MEDS: LORazepam 0.5 MG TAB PO PRN ×2 (06:02→13:13)
[2022-02-22 07:47] LABS: BUN Creatinine Ratio 19.6 (10-20); Calcium 9.4 mg/dl (8.5-10.1); Creatinine Clr Calc Pharmacy 75.8 ml/min; Est GFR (African American) 115.3 ml/min; Est GFR (Non-African American) 99.5 ml/min; Potassium 3.7 mmol/L (3.5-5.1)
[2022-02-22] MEDS: PANTOprazole 40 MG TAB PO SCH (08:21)
[2022-02-22] MEDS: HEPARIN SOD 5,000 UNIT/0.5 ML VIAL SQ SCH ×2 (08:21→20:17)
[2022-02-22] MEDS: FERROUS SULFATE 325 MG TAB PO SCH (08:21)
[2022-02-22] MEDS: MULTIVITAMIN TAB PO SCH (08:21)
[2022-02-22] MEDS: POTASSIUM CHLORIDE CRTAB 20 MEQ TABCR PO SCH ×2 (08:22→20:17)
[2022-02-22] MEDS: MAGNESIUM OXIDE 400 MG TAB PO SCH (08:24)
[2022-02-22] MEDS: cefTRIAXone SODIUM 1,000 MG in DEXTROSE 5% 50 ML IV SCH (10:44)
[2022-02-22] MEDS: ADVANCED PROBIOTIC 1250 MG CAPSULE PO SCH (10:45)
[2022-02-22] MEDS: POTASSIUM CHLORIDE 40 MEQ in SODIUM CHLORIDE 0.9% 1000ML 1,000 ML IV SCH (16:48)
[2022-02-22] MEDS: FUROSEMIDE 40 MG/4 ML VIAL IV SCH ×2 (16:48→20:17)
[2022-02-22] MEDS: CARBIDOPA/LEVODOPA 50/200MG EXT REL TAB PO SCH (20:17)
[2022-02-22] MEDS: ACETAMINOPHEN 325 MG TAB PO SCH (20:19)
--- NOTE | 2022-02-22 20:30 | Nephrology Progress Note ---
Date of Service February 22, 2022 Assessment & Plan (1) Hyponatremia: Plan: sodium improving from 127 > 129 this am; attributed in part to low solute diet; did nto tolerate Olmos. -cont FR 1.5L -had been getting NS at 80 mL/hr and IV lasix > increased lasix to 40 mg IV qid >>>will recheck bmp now/ this evening to see if we can hold dose overnight so she might get some rest -increased K supplements to tid from 20 bid -added K 40 mEq to NS > same rate and continuous rx Admission and Anticipated Discharge Date Admission Date: February 18, 2022 Subjective no interval events; sodium up to 129; no sob, no n/v; struggling to take po. no edema; struggles w/ ROS Review of Systems Review of Systems: All systems reviewed & are unremarkable except as noted in Subjective and Unobtainable due to cognitive status Physical Exam Constitutional: well developed, well nourished and cooperative; no acute distress Eyes: EOM intact bilaterally ENMT: Ears: no external ear abnormality Nose: no external nose abnormality Neck: no nuchal rigidity Respiratory: normal respiratory effort Auscultation: + diminished lung sounds Cardiovascular: Rate/Rhythm: + tachycardic Extremities: + edema Gastrointestinal (Abdomen): Inspection/Auscultation: normal bowel sounds Percussion/Palpation: abdomen soft; abdomen nontender Musculoskeletal: Extremities: strength 5/5 throughout Skin: no rashes, warm and dry Neurologic: mckenzie, fluent speech; nearly constant and profound tremors/ choreiform movements Psychiatric: Orientation: oriented to person, oriented to place and cooperative Speech: + abnormal rate/rhythm/volume of speech Insight: + limited insight (suspected) Genitourinary: no adrian Results & Data ([facility]) Vital Signs (Past 12 Hours) Vital Signs Temp Pulse Pulse Resp BP BP Pulse Ox 02/22/22 19:33 36.5 C 106 H 16 139/82 96 02/22/22 15:24 36.9 C 107 H 19 147/87 H 97 02/22/22 14:57 109 H 02/22/22 12:14 37.1 C 112 H 19 101/64 97 02/22/22 09:29 104 H O2 Del Method 02/22/22 19:33 Room Air 02/22/22 15:24 Room Air 02/22/22 14:57 02/22/22 12:14 Room Air 02/22/22 09:29 Laboratory Results 02/20/22 05:44 02/22/22 07:03
[2022-02-22 21:15] LABS: BUN Creatinine Ratio 21.8 (10-20); Calcium 9.7 mg/dl (8.5-10.1); Creatinine Clr Calc Pharmacy 49.6 ml/min; Est GFR (African American) 91.2 ml/min; Est GFR (Non-African American) 78.7 ml/min; Potassium 3.8 mmol/L (3.5-5.1)
--- NOTE | 2022-02-22 22:04 | Hospitalist Progress Note ---
Date of Service February 22, 2022 Assessment & Plan (1) Weakness: (2) Acute hyponatremia: Plan: Present on admission with generalized weakness, weight loss and hyponatremia Na on admission 126, sodium within normal range in the past but noted to be 130 on 02/16/2022 Possible related to poor intake and increase water intake ( family said pt drink alot of water) received IVF, Na 129 today Urine sodium and creatinine normal Nephrology on board Continue fluid restriction with 1.2L daily Lasix increased to 40mg QID as per nephrology Pt encouraged to increase PO intake Continue monitor BMP (3) Weight loss: Plan: Unintentional 50 pound weight loss over the past [address] chest abdominal and pelvis showed acute finding. unfortunately Imaging were done without contrast Continue Ensure supplementation (4) Parkinson's disease: Plan: Follows with [place] [facility]. Continue Sinemet. Prescribed amantadine earlier this week but has not yet started medication (5) Urinary symptom or sign: Plan: UTI Urine cx positive for gram negative bacilli Currently on Rocephin Will transition to PO Keflex in am (6) Elevated BP without diagnosis of hypertension: Plan: BP elevated in ED at 185/105 in setting of anxiety BP stable (7) Sinus tachycardia: Plan: Mostly due to anxiety Denies any chest pain or palpitations. High-sensitivity troponin within normal limits. stable Anxiety Continue Ativan PRN BID while in the hospital continue monitor (8) GERD (gastroesophageal reflux disease): Plan: Continue PPI DVT Ppx: SQ heparin Code status: FULL PCP: Connor Disposition will discharge once medically stable Admission and Anticipated Discharge Date Admission Date: February 18, 2022 Subjective Pt was seen and examined for follow up of weakness and hyponatremia Sitting in chair with no acute distress watching TV Denies any chest pain, palpitation, dizziness and SOB Review of Systems Review of Systems: All systems reviewed & are unremarkable except as noted in Subjective Physical Exam Physical Exam: General- No acute distress Head- atraumatic Eyes- PERRL, EOMI, ENT- oropharynx clear Neck- supple, no JVD Lungs- clear to auscultation Heart- regular rhythm; no murmur Abdomen- normal bowel sounds, soft, nontender Extremities- no calf tenderness Neuro- alert, oriented x 3; PERRL, EOMI; no facial palsy; no dysarthria Skin- warm & dry Results & Data Results & Data ([facility]) Vital Signs (Past 12 Hours) Vital Signs Temp Pulse Pulse Resp BP BP Pulse Ox 02/22/22 19:33 36.5 C 106 H 16 139/82 96 02/22/22 15:24 36.9 C 107 H 19 147/87 H 97 02/22/22 14:57 109 H 02/22/22 12:14 37.1 C 112 H 19 101/64 97 O2 Del Method 02/22/22 19:33 Room Air 02/22/22 15:24 Room Air 02/22/22 14:57 02/22/22 12:14 Room Air
[2022-02-23] MEDS: LORazepam 0.5 MG TAB PO PRN ×2 (02:24→20:36)
[2022-02-23] MEDS: CARBIDOPA/LEVODOPA 25/100MG TAB PO SCH ×5 (04:56→17:21)
[2022-02-23] MEDS: POTASSIUM CHLORIDE 40 MEQ in SODIUM CHLORIDE 0.9% 1000ML 1,000 ML IV SCH ×2 (04:56→17:52)
[2022-02-23 08:25] LABS: BUN Creatinine Ratio 25.4 (10-20); Calcium 9.9 mg/dl (8.5-10.1); Creatinine Clr Calc Pharmacy 65.6 ml/min; Est GFR (African American) 109.9 ml/min; Est GFR (Non-African American) 94.8 ml/min; Potassium 4.4 mmol/L (3.5-5.1)
[2022-02-23] MEDS: POTASSIUM CHLORIDE CRTAB 20 MEQ TABCR PO SCH ×3 (08:56→20:36)
[2022-02-23] MEDS: FERROUS SULFATE 325 MG TAB PO SCH (08:56)
[2022-02-23] MEDS: HEPARIN SOD 5,000 UNIT/0.5 ML VIAL SQ SCH ×2 (08:56→20:37)
[2022-02-23] MEDS: MULTIVITAMIN TAB PO SCH (08:56)
[2022-02-23] MEDS: PANTOprazole 40 MG TAB PO SCH (08:57)
[2022-02-23] MEDS: FUROSEMIDE 40 MG/4 ML VIAL IV SCH ×3 (08:58→17:21)
[2022-02-23] MEDS: MAGNESIUM OXIDE 400 MG TAB PO SCH (10:13)
[2022-02-23] MEDS: cefTRIAXone SODIUM 1,000 MG in DEXTROSE 5% 50 ML IV SCH (11:31)
[2022-02-23] MEDS: ADVANCED PROBIOTIC 1250 MG CAPSULE PO SCH (11:35)
--- NOTE | 2022-02-23 14:33 | Nephrology Progress Note ---
Date of Service February 23, 2022 Assessment & Plan (1) Hyponatremia: Plan: sodium improving from 129 > 133 this am; attributed in part to low solute diet; did not tolerate Olmos. today w/ sodium improved but tachycardic and low BP so far w/o sx of these -cont FR 1.2L -had been getting NS w/ 40 mEq K at 80 mL/hr and IV lasix > will lower lasix back to bid dosing IV and continue NS same rate; lower rate NS if sob >next BMP in AM -lower K supplement dose back to mEq 20 bid Admission and Anticipated Discharge Date Admission Date: February 18, 2022 Subjective sodium improving; denie sn/v, sob, light headedness, diarrhea, confusion, edema Review of Systems Review of Systems: All systems reviewed & are unremarkable except as noted in Subjective Physical Exam Constitutional: well developed, well nourished and cooperative; no acute distress Eyes: EOM intact bilaterally ENMT: Ears: no external ear abnormality Nose: no external nose abnormality Neck: no nuchal rigidity Respiratory: normal respiratory effort Auscultation: + diminished lung sounds Cardiovascular: Rate/Rhythm: + tachycardic Extremities: no edema Gastrointestinal (Abdomen): Inspection/Auscultation: normal bowel sounds Percussion/Palpation: abdomen soft; abdomen nontender Musculoskeletal: Extremities: strength 5/5 throughout Skin: no rashes, warm and dry Neurologic: today markedly fewer tremors; fluent speech Psychiatric: Orientation: oriented to person, oriented to place and cooperative Speech: normal rate/rhythm/volume of speech Results & Data ([facility]) Vital Signs (Past 12 Hours) Vital Signs Temp Pulse Pulse Resp BP BP Pulse Ox 02/23/22 11:00 36.7 C 98 H 18 99/67 L 97 02/23/22 11:06 120 H 02/23/22 07:00 36.6 C 115 H 18 110/68 97 02/23/22 03:11 36.7 C 105 H 17 133/84 94 O2 Del Method 02/23/22 11:00 Room Air 02/23/22 11:06 02/23/22 07:00 Room Air 02/23/22 03:11 Room Air Laboratory Results 02/20/22 05:44 02/23/22 06:57
[2022-02-23] MEDS: CARBIDOPA/LEVODOPA 50/200MG EXT REL TAB PO SCH (20:36)
[2022-02-23] MEDS: ACETAMINOPHEN 325 MG TAB PO SCH (20:37)
--- NOTE | 2022-02-23 23:39 | Hospitalist Progress Note ---
Date of Service February 23, 2022 Assessment & Plan (1) Weakness: (2) Acute hyponatremia: Plan: Present on admission with generalized weakness, weight loss and hyponatremia Na on admission 126, sodium within normal range in the past but noted to be 130 on 02/16/2022 Possible related to poor intake and increase water intake ( family said pt drink alot of water) received IVF, Na 133 today Urine sodium and creatinine normal Nephrology on board Continue fluid restriction with 1.2L daily Lasix decreased to 40mg BID as per nephrology Pt encouraged to increase PO intake Continue monitor BMP (3) Weight loss: Plan: Unintentional 50 pound weight loss over the past [address] chest abdominal and pelvis showed acute finding. unfortunately Imaging were done without contrast Continue Ensure supplementation (4) Parkinson's disease: Plan: Follows with [place] neurology. Continue Sinemet. Prescribed amantadine earlier this week but has not yet started medication (5) Urinary symptom or sign: Plan: UTI Urine cx positive for gram negative bacilli Currently on Rocephin Will transition to PO Keflex in am (6) Elevated BP without diagnosis of hypertension: Plan: BP elevated in ED at 185/105 in setting of anxiety BP stable (7) Sinus tachycardia: Plan: Mostly due to anxiety Denies any chest pain or palpitations. High-sensitivity troponin within normal limits. stable Anxiety Continue Ativan PRN BID while in the hospital continue monitor (8) GERD (gastroesophageal reflux disease): Plan: Continue PPI DVT Ppx: SQ heparin Code status: FULL PCP: Connor Disposition will discharge once medically stable Admission and Anticipated Discharge Date Admission Date: February 18, 2022 Subjective Pt was seen and examined for follow up of weakness and hyponatremia Sitting in chair with no acute distress with family member at bedside Denies any chest pain, palpitation, dizziness and SOB Review of Systems Review of Systems: All systems reviewed & are unremarkable except as noted in Subjective Physical Exam Physical Exam: General- No acute distress Head- atraumatic Eyes- PERRL, EOMI, ENT- oropharynx clear Neck- supple, no JVD Lungs- clear to auscultation Heart- regular rhythm; no murmur Abdomen- normal bowel sounds, soft, nontender Extremities- no calf tenderness Neuro- alert, oriented x 3; PERRL, EOMI; no facial palsy; no dysarthria Skin- warm & dry Results & Data Results & Data ([facility]) Vital Signs (Past 12 Hours) Vital Signs Temp Pulse Pulse Resp BP Pulse Ox O2 Del Method 02/23/22 22:52 90 02/23/22 22:50 36.9 C 89 18 119/79 95 Room Air 02/23/22 19:00 36.6 C 88 20 121/79 97 Room Air 02/23/22 14:53 99 H
[2022-02-24] MEDS: ACETAMINOPHEN 325 MG TAB PO PRN (01:19)
[2022-02-24] MEDS: POTASSIUM CHLORIDE 40 MEQ in SODIUM CHLORIDE 0.9% 1000ML 1,000 ML IV SCH ×2 (05:38→19:19)
[2022-02-24] MEDS: CARBIDOPA/LEVODOPA 25/100MG TAB PO SCH ×5 (05:38→17:23)
[2022-02-24 06:46] LABS: BUN Creatinine Ratio 26.4 (10-20); Calcium 9.7 mg/dl (8.5-10.1); Creatinine Clr Calc Pharmacy 76.7 ml/min; Est GFR (African American) 113.9 ml/min; Est GFR (Non-African American) 98.2 ml/min; Potassium 4.7 mmol/L (3.5-5.1)
[2022-02-24] MEDS: HEPARIN SOD 5,000 UNIT/0.5 ML VIAL SQ SCH ×2 (08:27→20:31)
[2022-02-24] MEDS: FERROUS SULFATE 325 MG TAB PO SCH (08:28)
[2022-02-24] MEDS: FUROSEMIDE 40 MG/4 ML VIAL IV SCH ×2 (08:28→17:23)
[2022-02-24] MEDS: POTASSIUM CHLORIDE CRTAB 20 MEQ TABCR PO SCH (08:29)
[2022-02-24] MEDS: MULTIVITAMIN TAB PO SCH (08:29)
[2022-02-24] MEDS: PANTOprazole 40 MG TAB PO SCH (08:29)
[2022-02-24] MEDS: MAGNESIUM OXIDE 400 MG TAB PO SCH (09:00)
[2022-02-24] MEDS: cefTRIAXone SODIUM 1,000 MG in DEXTROSE 5% 50 ML IV SCH (09:52)
[2022-02-24] MEDS: ADVANCED PROBIOTIC 1250 MG CAPSULE PO SCH (11:18)
--- NOTE | 2022-02-24 15:47 | Hospitalist Progress Note ---
Date of Service February 24, 2022 Assessment & Plan (1) Weakness: (2) Acute hyponatremia: Plan: Present on admission with generalized weakness, weight loss and hyponatremia Na on admission 126, sodium within normal range in the past but noted to be 130 on 02/16/2022 Possible related to poor intake and increase water intake ( family said pt drink alot of water) Received IVF, Na 133 on the day of admission Urine sodium and creatinine normal Nephrology on board-appreciate input and recommendation Continue fluid restriction with 1.2L daily Lasix decreased to 40mg BID as per nephrology Pt encouraged to increase PO intake Sodium level remains low at 131 on 02/24/2022-we will keep monitoring (3) Weight loss: Plan: Unintentional 50 pound weight loss over the past [address] chest abdominal and pelvis showed acute finding. unfortunately Imaging were done without contrast Continue Ensure supplementation (4) Parkinson's disease: Plan: Follows with [place] neurology. Continue Sinemet. Prescribed amantadine earlier this week but has not yet started medication Has minimal tremors involving the legs Has bilateral leg cramps (5) Urinary symptom or sign: Plan: UTI Urine cx positive for gram negative bacilli Currently on Rocephin Antibiotic is changed to oral Keflex (6) Elevated BP without diagnosis of hypertension: Plan: BP elevated in ED at 185/105 in setting of anxiety BP stable (7) Sinus tachycardia: Plan: Mostly due to anxiety Denies any chest pain or palpitations. High-sensitivity troponin within normal limits. stable -still having tachycardia at 105 Anxiety Continue Ativan PRN BID while in the hospital continue monitor (8) GERD (gastroesophageal reflux disease): Plan: Continue PPI DVT Ppx: SQ heparin Code status: FULL PCP: [place] Disposition will discharge once medically stable PT OT have been reordered Admission and Anticipated Discharge Date Admission Date: February 18, 2022 Subjective 02/24/2022 The patient was seen and examined in telemetry unit She has been feeling much better but complains to have weakness Denies any other significant symptoms Review of Systems Review of Systems: All systems reviewed and are unremarkable except as noted below Physical Exam Physical Exam: Sitting on the bed without any acute distress Constitutional: + ill appearing and average body habitus Eyes: PERRL, conjunctivae normal, anicteric sclerae ENMT: external ear and nose normal, oropharynx normal Neck: trachea midline, no thyromegaly Respiratory: no respiratory distress Auscultation: lungs clear to aus cultation bilaterally Cardiovascular: Rate/Rhythm: regular rate, regular rhythm and + tachycardic Heart Sounds: normal S1 and normal S2 Extremities: no edema Gastrointestinal (Abdomen): Inspection/Auscultation: normal bowel sounds; abdomen not distended Percussion/Palpation: abdomen soft; abdomen nontender Musculoskeletal: No acute arthritis in any joint Neurologic: moves all extremities and + confused (Pleasantly confused); no focal motor deficits Lymphatic: no cervical or axillary lymphadenopathy Results & Data Results & Data ([facility]) Vital Signs (Past 12 Hours) Vital Signs Temp Pulse Resp BP BP Pulse Ox O2 Del Method 02/24/22 15:34 36.7 C 105 H 16 122/77 96 Room Air 02/24/22 12:08 36.6 C 105 H 16 121/77 99 Room Air 02/24/22 08:00 36.7 C 81 16 153/81 H 97 Room Air 02/24/22 03:43 37 C 109 H 22 166/93 H 97 Room Air Laboratory Results [facility] 02/24/22 06:09 Sodium 131 L Potassium 4.7 Chloride 101 Carbon Dioxide 24 BUN 14 Creatinine 0.53 L Glucose 108 H Calcium 9.7 Medications Administered Current Inpatient Medications Acetaminophen (Acetaminophen 325 Mg Tab) 650 mg PO HS JW Stop: 03/20/22 20:59 Last Admin: 02/23/22 20:37 Dose: 650 mg Acetaminophen (Acetaminophen 325 Mg Tab) 650 mg PO Q4H PRN PRN Reason: Pain or Fever Stop: 03/20/22 19:15 Last Admin: 02/24/22 01:19 Dose: 650 mg Carbidopa/Levodopa (Carbidopa/Levodopa 25/100mg Tab) 1.5 tab PO 0530,0830,1130,1430,1730 JW Stop: 03/21/22 05:29 Last Admin: 02/24/22 13:14 Dose: 1.5 tab Carbidopa/Levodopa (Carbidopa/Levodopa 50/200mg Ext Rel Tab) 1 tab PO HS JW Stop: 03/20/22 20:59 Last Admin: 02/23/22 20:36 Dose: 1 tab Docusate Sodium (Docusate Sodium 100 Mg Cap) 100 mg PO BID PRN PRN Reason: Constipation Stop: 03/20/22 19:15 Last Admin: 02/21/22 08:25 Dose: 100 mg Ferrous Sulfate (Ferrous Sulfate 325 Mg Tab) 325 mg PO DAILY [facility] Stop: 03/21/22 08:59 Last Admin: 02/24/22 08:28 Dose: 325 mg Furosemide (Furosemide 40 Mg/4 Ml Vial) 40 mg IV [id number] [facility] Stop: 03/25/22 16:59 Last Admin: 02/24/22 08:28 Dose: 40 mg Heparin Sodium (Porcine) (Heparin Sod 5,000 Unit/0.5 Ml Vial) 5,000 units SQ Q12 JW Stop: 03/20/22 20:59 Last Admin: 02/24/22 08:27 Dose: 5,000 units Hydralazine HCl (Hydralazine Hcl 20 Mg/Ml Vial) 5 mg IV Q6H PRN PRN Reason: SBP >160 Stop: 03/20/22 17:42 Last Admin: 02/19/22 05:13 Dose: 5 mg Ceftriaxone Sodium 1,000 mg/ (Dextrose) 60 mls @ 100 mls/hr IV Q24H [facility]; Protocol Stop: 02/26/22 09:59 Last Infusion: 02/24/22 10:29 Dose: Infused Potassium Chloride 40 meq/ (Sodium Chloride) 1,020 mls @ 80 mls/hr IV .[id number] [facility] Stop: 03/24/22 16:29 Last Admin: 02/24/22 05:38 Dose: 80 mls/hr Lactobacillus Acidophilus (Advanced Probiotic 1250 Mg Capsule) 2 cap PO QDL JW Stop: 03/21/22 11:29 Last Admin: 02/24/22 11:18 Dose: 2 cap Lorazepam (Lorazepam 0.5 Mg Tab) 0.25 mg PO BID PRN PRN Reason: Anxiety Stop: 03/23/22 12:05 Last Admin: 02/23/22 20:36 Dose: 0.25 mg Magnesium Oxide (Magnesium Oxide 400 Mg Tab) 400 mg PO DAILY [facility] Stop: 03/21/22 08:59 Last Admin: 02/24/22 09:00 Dose: 400 mg Multivitamins (Multivitamin Tab) 1 tab PO QAM JW Stop: 03/21/22 08:59 Last Admin: 02/24/22 08:29 Dose: 1 tab Ondansetron HCl (Ondansetron Inj 2 Mg/Ml 2 Ml Vial) 4 mg IV Q8H PRN PRN Reason: Nausea Stop: 03/22/22 08:40 Pantoprazole Sodium (Pantoprazole 40 Mg Tab) 40 mg PO DAILY [facility] Stop: 03/21/22 08:59 Last Admin: 02/24/22 08:29 Dose: 40 mg Potassium Chloride (Potassium Chloride Crtab 20 Meq Tabcr) 20 meq PO BID JW Stop: 03/25/22 20:59 Last Admin: 02/24/22 08:29 Dose: 20 meq
--- NOTE | 2022-02-24 17:06 | Nephrology Progress Note ---
Date of Service February 24, 2022 Assessment & Plan (1) Hyponatremia: Plan: sodium improving from 129 > 133 > 131 this am; attributed in part to low solute diet; did not tolerate Olmos. today w/ sodium improved but tachycardic and low BP so far w/o sx of these -cont FR 1.2L -had been getting NS w/ 40 mEq K at 80 mL/hr and IV lasix > sodium dropped again with lowering lasix back to bid dosing IV and continue NS same rate>>today will lower NS rate >next BMP in AM -lower K supplement dose back to mEq 20 daily Admission and Anticipated Discharge Date Admission Date: February 18, 2022 Subjective no interval events. struggling w/ urinary frequency on frequent lasix/ ivf; no sob, no n/v, no edema. Review of Systems Review of Systems: All systems reviewed & are unremarkable except as noted in Subjective Physical Exam 2 Constitutional: well developed, well nourished and cooperative; no acute distress Eyes: EOM intact bilaterally ENMT: Ears: no external ear abnormality Nose: no external nose abnormality Neck: no nuchal rigidity Respiratory: normal respiratory effort Auscultation: + diminished lung sounds Cardiovascular: Rate/Rhythm: + tachycardic Extremities: no edema Gastrointestinal (Abdomen): Inspection/Auscultation: normal bowel sounds Percussion/Palpation: abdomen soft; abdomen nontender Musculoskeletal: Extremities: strength 5/5 throughout Skin: no rashes, warm and dry Neurologic: more tremors than yesterday; mostly appropriate speech Psychiatric: Orientation: oriented to person, oriented to place and cooperative Speech: normal rate/rhythm/volume of speech Insight: + limited insight (suspected) Results & Data ([facility]) Vital Signs (Past 12 Hours) Vital Signs Temp Pulse Resp BP BP Pulse Ox O2 Del Method 02/24/22 15:34 36.7 C 105 H 16 122/77 96 Room Air 02/24/22 12:08 36.6 C 105 H 16 121/77 99 Room Air 02/24/22 08:00 36.7 C 81 16 153/81 H 97 Room Air Laboratory Results 02/20/22 05:44 02/24/22 06:09
[2022-02-24] MEDS: cephALEXin 500 MG CAP PO SCH (20:30)
[2022-02-24] MEDS: CARBIDOPA/LEVODOPA 50/200MG EXT REL TAB PO SCH (20:30)
[2022-02-24] MEDS: ACETAMINOPHEN 325 MG TAB PO SCH (20:35)
[2022-02-25] MEDS: CARBIDOPA/LEVODOPA 25/100MG TAB PO SCH ×6 (03:49→16:55)
[2022-02-25] MEDS: ACETAMINOPHEN 325 MG TAB PO PRN (07:26)
[2022-02-25] MEDS: FERROUS SULFATE 325 MG TAB PO SCH (09:13)
[2022-02-25] MEDS: FUROSEMIDE 40 MG/4 ML VIAL IV SCH ×2 (09:14→16:56)
[2022-02-25] MEDS: POTASSIUM CHLORIDE CRTAB 20 MEQ TABCR PO SCH (09:14)
[2022-02-25] MEDS: PANTOprazole 40 MG TAB PO SCH (09:14)
[2022-02-25] MEDS: MULTIVITAMIN TAB PO SCH (09:15)
[2022-02-25] MEDS: cephALEXin 500 MG CAP PO SCH ×2 (09:15→21:15)
[2022-02-25] MEDS: HEPARIN SOD 5,000 UNIT/0.5 ML VIAL SQ SCH ×2 (09:15→21:17)
[2022-02-25] MEDS: MAGNESIUM OXIDE 400 MG TAB PO SCH (09:19)
[2022-02-25 09:26] LABS: BUN Creatinine Ratio 28.8 (10-20); Calcium 10.1 mg/dl (8.5-10.1); Creatinine Clr Calc Pharmacy 64.9 ml/min; Est GFR (African American) 109.9 ml/min; Est GFR (Non-African American) 94.8 ml/min; Potassium 4.5 mmol/L (3.5-5.1)
[2022-02-25] MEDS: ADVANCED PROBIOTIC 1250 MG CAPSULE PO SCH (11:48)
--- NOTE | 2022-02-25 13:57 | Hospitalist Progress Note ---
Date of Service February 25, 2022 Assessment & Plan (1) Weakness: Plan: Remains generally weak and lethargic PT recommended rehab Will await case management input (2) Acute hyponatremia: Plan: Present on admission with generalized weakness, weight loss and hyponatremia Na on admission 126, sodium within normal range in the past but noted to be 130 on 02/16/2022 Possible related to poor intake and increase water intake ( family said pt drink alot of water) Received IVF, Na 133 on the day of admission Urine sodium and creatinine normal Nephrology on board-appreciate input and recommendation Continue fluid restriction with 1.2L daily Lasix decreased to 40mg BID as per nephrology Pt encouraged to increase PO intake Sodium level remains low at 131 on 02/24/2022-we will keep monitoring Sodium level remains borderline low at 131 (3) Weight loss: Plan: Unintentional 50 pound weight loss over the past [address] chest abdominal and pelvis showed acute finding. unfortunately Imaging were done without contrast Continue Ensure supplementation (4) Parkinson's disease: Plan: Follows with [place] neurology. Continue Sinemet. Prescribed amantadine earlier this week but has not yet started medication Has minimal tremors involving the legs Has bilateral leg cramps (5) Urinary symptom or sign: Plan: UTI Urine cx positive for gram negative bacilli Currently on Rocephin Antibiotic is changed to oral Keflex Denies any urinary symptoms (6) Elevated BP without diagnosis of hypertension: Plan: BP elevated in ED at 185/105 in setting of anxiety BP stable (7) Sinus tachycardia: Plan: Mostly due to anxiety Denies any chest pain or palpitations. High-sensitivity troponin within normal limits. stable -still having tachycardia at 105 Anxiety Continue Ativan PRN BID while in the hospital continue monitor (8) GERD (gastroesophageal reflux disease): Plan: Continue PPI DVT Ppx: SQ heparin Code status: FULL PCP: [place] Disposition will discharge once medically stable PT OT have been reordered Admission and Anticipated Discharge Date Admission Date: February 18, 2022 Subjective 02/24/2022 The patient was seen and examined in telemetry unit She has been feeling much better but complains to have weakness Denies any other significant symptoms 02/25/2022 The patient was seen and examined in telemetry unit She has been feeling generally weak but denies any other significant symptoms She has had PT evaluation and recommendation was to go to inpatient rehab She prefers to go home Review of Systems Review of Systems: All systems reviewed and are unremarkable except as noted below Neurologic: Remains generally very weak Physical Exam Physical Exam: Sitting on the bed without any acute distress Constitutional: + ill appearing and average body habitus Eyes: PERRL, conjunctivae normal, anicteric sclerae ENMT: external ear and nose normal, oropharynx normal Neck: trachea midline, no thyromegaly Respiratory: no respiratory distress Auscultation: lungs clear to auscultation bilaterally Cardiovascular: Rate/Rhythm: regular rate, regular rhythm and + tachycardic Heart Sounds: normal S1 and normal S2 Extremities: no edema Gastrointestinal (Abdomen): Inspection/Auscultation: normal bowel sounds; abdomen not distended Percussion/Palpation: abdomen soft; abdomen nontender Neurologic: moves all extremities and + confused (Pleasantly confused); no focal motor deficits Psychiatric: Remains pleasantly confused Lymphatic: no cervical or axillary lymphadenopathy Results & Data Results & Data ([facility]) Vital Signs (Past 12 Hours) Vital Signs Temp Pulse Resp BP Pulse Ox O2 Del Method 02/25/22 11:17 36.9 C 107 H 15 122/78 96 Room Air 02/25/22 07:44 36.5 C 104 H 18 125/100 98 Room Air 02/25/22 03:45 37 C 111 H 20 164/94 H 96 Room Air Laboratory Results [facility] 02/25/22 08:25 Sodium 131 L Potassium 4.5 Chloride 96 L Carbon Dioxide 29 BUN 17 Creatinine 0.59 L Glucose 156 H Calcium 10.1 Medications Administered Current Inpatient Medications Acetaminophen (Acetaminophen 325 Mg Tab) 650 mg PO HS [facility] Stop: 03/20/22 20:59 Last Admin: 02/24/22 20:35 Dose: 650 mg Acetaminophen (Acetaminophen 325 Mg Tab) 650 mg PO Q4H PRN PRN Reason: Pain or Fever Stop: 03/20/22 19:15 Last Admin: 02/25/22 07:26 Dose: 650 mg Carbidopa/Levodopa (Carbidopa/Levodopa 25/100mg Tab) 1.5 tab PO 0530,0830,1130,1430,1730 JW Stop: 03/21/22 05:29 Last Admin: 02/25/22 11:49 Dose: 1.5 tab Carbidopa/Levodopa (Carbidopa/Levodopa 50/200mg Ext Rel Tab) 1 tab PO HS JW Stop: 03/20/22 20:59 Last Admin: 02/24/22 20:30 Dose: 1 tab Cephalexin HCl (Cephalexin 500 Mg Cap) 500 mg PO BID [facility]; Protocol Stop: 03/01/22 20:59 Last Admin: 02/25/22 09:15 Dose: 500 mg Docusate Sodium (Docusate Sodium 100 Mg Cap) 100 mg PO BID PRN PRN Reason: Constipation Stop: 03/20/22 19:15 Last Admin: 02/21/22 08:25 Dose: 100 mg Ferrous Sulfate (Ferrous Sulfate 325 Mg Tab) 325 mg PO DAILY [facility] Stop: 03/21/22 08:59 Last Admin: 02/25/22 09:13 Dose: 325 mg Furosemide (Furosemide 40 Mg/4 Ml Vial) 40 mg IV BID17 JW Stop: 03/25/22 16:59 Last Admin: 02/25/22 09:14 Dose: 40 mg Heparin Sodium (Porcine) (Heparin Sod 5,000 Unit/0.5 Ml Vial) 5,000 units SQ Q12 JW Stop: 03/20/22 20:59 Last Admin: 02/25/22 09:15 Dose: 5,000 units Hydralazine HCl (Hydralazine Hcl 20 Mg/Ml Vial) 5 mg IV Q6H PRN PRN Reason: SBP >160 Stop: 03/20/22 17:42 Last Admin: 02/19/22 05:13 Dose: 5 mg Potassium Chloride 40 meq/ (Sodium Chloride) 1,020 mls @ 40 mls/hr IV .Q24H [facility] Stop: 03/24/22 16:29 Last Admin: 02/24/22 19:19 Dose: 40 mls/hr Lactobacillus Acidophilus (Advanced Probiotic 1250 Mg Capsule) 2 cap PO QDL [facility] Stop: 03/21/22 11:29 Last Admin: 02/25/22 11:48 Dose: 2 cap Lorazepam (Lorazepam 0.5 Mg Tab) 0.25 mg PO BID PRN PRN Reason: Anxiety Stop: 03/23/22 12:05 Last Admin: 02/23/22 20:36 Dose: 0.25 mg Magnesium Oxide (Magnesium Oxide 400 Mg Tab) 400 mg PO DAILY [facility] Stop: 03/21/22 08:59 Last Admin: 02/25/22 09:19 Dose: 400 mg Multivitamins (Multivitamin Tab) 1 tab PO QAM JW Stop: 03/21/22 08:59 Last Admin: 02/25/22 09:15 Dose: 1 tab Ondansetron HCl (Ondansetron Inj 2 Mg/Ml 2 Ml Vial) 4 mg IV Q8H PRN PRN Reason: Nausea Stop: 03/22/22 08:40 Pantoprazole Sodium (Pantoprazole 40 Mg Tab) 40 mg PO DAILY JW Stop: 03/21/22 08:59 Last Admin: 02/25/22 09:14 Dose: 40 mg Potassium Chloride (Potassium Chloride Crtab 20 Meq Tabcr) 20 meq PO DAILY JW Stop: 03/27/22 08:59 Last Admin: 02/25/22 09:14 Dose: 20 meq
[2022-02-25] MEDS ORDERED: LOPERAMIDE HCL 2 MG CAP PO PRN (15:19)
--- NOTE | 2022-02-25 15:19 | Nephrology Progress Note ---
Date of Service February 25, 2022 Assessment & Plan (1) Hyponatremia: Plan: sodium improving from 129 > 133 > 131 this am and yesterday; attributed in part to low solute diet; did not tolerate Olmos. today w/ sodium improved/acceptable -cont FR 1.2L -encourage protein and sodium intake -will stop K rich NS -changed IV lasix to torsemide in am 40 mg daily >next BMP in AM -cont K supplement mEq 20 daily -plan OP neph f/u Admission and Anticipated Discharge Date Admission Date: February 18, 2022 Subjective worse confusion reported as day progresses; needing chair/bed alarm still; no sob, no n/v, no uncontrolled pain; ate last meal well Review of Systems Review of Systems: All systems reviewed & are unremarkable except as noted in Subjective Physical Exam Constitutional: well developed, well nourished and cooperative; no acute distress Eyes: EOM intact bilaterally ENMT: Ears: no external ear abnormality Nose: no external nose abnormality Neck: no nuchal rigidity Respiratory: normal respiratory effort Auscultation: + diminished lung sounds Cardiovascular: Rate/Rhythm: + tachycardic Extremities: no edema Gastrointestinal (Abdomen): Inspection/Auscultation: normal bowel sounds Percussion/Palpation: abdomen soft; abdomen nontender Musculoskeletal: Extremities: strength 5/5 throughout Skin: no rashes, warm and dry Neurologic: restless/choreiform mvts; fluent speech, some tremors Psychiatric: Orientation: oriented to person, oriented to place and cooperative Speech: normal rate/rhythm/volume of speech Insight: + limited insight Results & Data ([facility]) Vital Signs (Past 12 Hours) Vital Signs Temp Pulse Pulse Resp BP Pulse Ox O2 Del Method 02/25/22 14:49 108 H 02/25/22 06:12 90 02/25/22 11:17 36.9 C 107 H 15 122/78 96 Room Air 02/25/22 07:44 36.5 C 104 H 18 125/100 98 Room Air 02/25/22 03:45 37 C 111 H 20 164/94 H 96 Room Air Laboratory Results 02/20/22 05:44 02/25/22 08:25
[2022-02-25] MEDS: CARBIDOPA/LEVODOPA 50/200MG EXT REL TAB PO SCH (21:16)
[2022-02-25] MEDS: ACETAMINOPHEN 325 MG TAB PO SCH (21:20)
[2022-02-25] MEDS: POTASSIUM CHLORIDE 40 MEQ in SODIUM CHLORIDE 0.9% 1000ML 1,000 ML IV SCH (21:38)
[2022-02-26] MEDS: CARBIDOPA/LEVODOPA 25/100MG TAB PO SCH ×5 (05:40→16:03)
[2022-02-26 07:09] LABS: BUN Creatinine Ratio 36.4 (10-20); Calcium 10.3 mg/dl (8.5-10.1); Creatinine Clr Calc Pharmacy 69.5 ml/min; Est GFR (African American) 112.5 ml/min; Est GFR (Non-African American) 97.1 ml/min; Potassium 4.3 mmol/L (3.5-5.1)
[2022-02-26] MEDS: POTASSIUM CHLORIDE CRTAB 20 MEQ TABCR PO SCH (08:10)
[2022-02-26] MEDS: cephALEXin 500 MG CAP PO SCH ×2 (08:10→21:20)
[2022-02-26] MEDS: FERROUS SULFATE 325 MG TAB PO SCH (08:10)
[2022-02-26] MEDS: MULTIVITAMIN TAB PO SCH (08:10)
[2022-02-26] MEDS: TORSEMIDE 10 MG TAB PO SCH (08:10)
[2022-02-26] MEDS: HEPARIN SOD 5,000 UNIT/0.5 ML VIAL SQ SCH ×2 (08:10→21:22)
[2022-02-26] MEDS: PANTOprazole 40 MG TAB PO SCH (08:10)
[2022-02-26] MEDS: MAGNESIUM OXIDE 400 MG TAB PO SCH (08:11)
--- NOTE | 2022-02-26 09:10 | Nephrology Progress Note ---
Date of Service February 26, 2022 Assessment & Plan (1) Hyponatremia: Plan: sodium improving from 129 > 133 > 131 02/24 and 02/25>131 today; attributed in part to low solute diet; did not tolerate Olmos. today w/ sodium acceptable though not normalized; was 126 at admission -cont FR 1.2L -encourage protein and sodium intake -stopped K rich NS -cont torsemide in am 40 mg daily >bmp daily -cont K supplement mEq 20 daily >>will sign off >pls d/c on above loop diuretic and K dosing and FR > bmp to be ordered by neph RN weekly x 3 after d/c >f/u in CKD clinic 2-4 wks after d/c with HOSPITAL DISCHARGE appt w/ physician/clinic nearest her home Admission and Anticipated Discharge Date Admission Date: February 18, 2022 Subjective no acute interval events; cont to need supervision /tends to get out of bed; denies sob, n/v, edema, uncontrolled pain Review of Systems Review of Systems: All systems reviewed & are unremarkable except as noted in Subjective Physical Exam Constitutional: well developed, well nourished and cooperative; no acute distress Eyes: EOM intact bilaterally ENMT: Ears: no external ear abnormality Nose: no external nose abnormality Neck: no nuchal rigidity Respiratory: normal respiratory effort Auscultation: + diminished lung sounds Cardiovascular: Rate/Rhythm: + tachycardic Extremities: no edema Gastrointestinal (Abdomen): Inspection/Auscultation: normal bowel sounds Percussion/Palpation: abdomen soft; abdomen nontender Musculoskeletal: Extremities: strength 5/5 throughout Skin: no rashes, warm and dry Psychiatric: Orientation: oriented to person, oriented to place and cooperative Speech: normal rate/rhythm/volume of speech Insight: + limited insight Results & Data ([facility]) Vital Signs (Past 12 Hours) Vital Signs Temp Pulse Pulse Resp BP Pulse Ox O2 Del Method 02/26/22 07:04 36.7 C 93 H 24 122/73 95 Room Air 02/26/22 03:47 36.8 C 112 H 20 157/93 H 95 Room Air 02/26/22 00:22 105 H 02/25/22 22:41 36.9 C 101 H 20 131/84 95 Room Air Laboratory Results 02/20/22 05:44 02/26/22 05:54
[2022-02-26] MEDS: ADVANCED PROBIOTIC 1250 MG CAPSULE PO SCH (09:42)
--- NOTE | 2022-02-26 14:35 | Hospitalist Progress Note ---
Date of Service February 26, 2022 Assessment & Plan (1) Weakness: Plan: Remains generally weak and lethargic PT recommended rehab Will await case management input (2) Acute hyponatremia: Plan: Present on admission with generalized weakness, weight loss and hyponatremia Na on admission 126, sodium within normal range in the past but noted to be 130 on 02/16/2022 Possible related to poor intake and increase water intake ( family said pt drink alot of water) Received IVF, Na 133 on the day of admission Urine sodium and creatinine normal Nephrology on board-appreciate input and recommendation Continue fluid restriction with 1.2L daily Lasix decreased to 40mg BID as per nephrology Pt encouraged to increase PO intake Sodium level remains low at 131 on 02/24/2022-we will keep monitoring Sodium level remains borderline low at 130's Medications were adjusted by the turbogenerator operator Will need to monitor PRP (3) Weight loss: Plan: Unintentional 50 pound weight loss over the past [address] chest abdominal and pelvis showed acute finding. unfortunately Imaging were done without contrast Continue Ensure supplementation (4) Parkinson's disease: Plan: Follows with [place] [facility]. Continue Sinemet. Prescribed amantadine earlier this week but has not yet started medication Has minimal tremors involving the legs Has bilateral leg cramps (5) Urinary symptom or sign: Plan: UTI Urine cx positive for gram negative bacilli Currently on Rocephin Antibiotic is changed to oral Keflex Denies any urinary symptoms (6) Elevated BP without diagnosis of hypertension: Plan: BP elevated in ED at 185/105 in setting of anxiety BP stable (7) Sinus tachycardia: Plan: Mostly due to anxiety Denies any chest pain or palpitations. High-sensitivity troponin within normal limits. stable -still having tachycardia at 105 Anxiety Continue Ativan PRN BID while in the hospital continue monitor (8) GERD (gastroesophageal reflux disease): Plan: Continue PPI DVT Ppx: SQ heparin Code status: FULL PCP: Deuel Disposition will discharge once medically stable PT OT have been reordered Admission and Anticipated Discharge Date Admission Date: February 18, 2022 Subjective 02/24/2022 The patient was seen and examined in telemetry unit She has been feeling much better but complains to have weakness Denies any other significant symptoms 02/25/2022 The patient was seen and examined in telemetry unit She has been feeling generally weak but denies any other significant symptoms She has had PT evaluation and recommendation was to go to inpatient rehab She prefers to go home 02/26/2022 The patient was seen and examined in telemetry unit She complains to have weakness in the legs and remains pleasantly confused Denies any other significant symptoms Review of Systems Review of Systems: All systems reviewed and are unremarkable except as noted below Neurologic: Remains generally very weak Physical Exam Physical Exam: Sitting on the bed without any acute distress Constitutional: + ill appearing and average body habitus Eyes: PERRL, conjunctivae normal, anicteric sclerae ENMT: external ear and nose normal, oropharynx normal Neck: trachea midline, no thyromegaly Respiratory: no respiratory distress Auscultation: lungs clear to auscultation bilaterally Cardiovascular: Rate/Rhythm: regular rate, regular rhythm and + tachycardic Heart Sounds: normal S1 and normal S2 Extremities: no edema Gastrointestinal (Abdomen): Inspection/Auscultation: normal bowel sounds; abdomen not distended Percussion/Palpation: abdomen soft; abdomen nontender Musculoskeletal: No acute arthritis in any joint Neurologic: moves all extremities and + confused (Pleasantly confused); no focal motor deficits Lymphatic: no cervical or axillary lymphadenopathy Results & Data Results & Data ([facility]) Vital Signs (Past 12 Hours) Vital Signs Temp Pulse Resp BP Pulse Ox O2 Del Method 02/26/22 12:03 36.7 C 107 H 16 124/78 96 Room Air 02/26/22 07:04 36.7 C 93 H 24 122/73 95 Room Air 02/26/22 03:47 36.8 C 112 H 20 157/93 H 95 Room Air Laboratory Results [facility] 02/26/22 05:54 Sodium 130 L Potassium 4.3 Chloride 95 L Carbon Dioxide 25 BUN 20 Creatinine 0.55 L Glucose 115 H Calcium 10.3 H Medications Administered Current Inpatient Medications Acetaminophen (Acetaminophen 325 Mg Tab) 650 mg PO HS JW Stop: 03/20/22 20:59 Last Admin: 02/25/22 21:20 Dose: 650 mg Acetaminophen (Acetaminophen 325 Mg Tab) 650 mg PO Q4H PRN PRN Reason: Pain or Fever Stop: 03/20/22 19:15 Last Admin: 02/25/22 07:26 Dose: 650 mg Carbidopa/Levodopa (Carbidopa/Levodopa 25/100mg Tab) 1.5 tab PO 0530,0830,1130,1430,1730 [facility] Stop: 03/21/22 05:29 Last Admin: 02/26/22 09:42 Dose: 1.5 tab Carbidopa/Levodopa (Carbidopa/Levodopa 50/200mg Ext Rel Tab) 1 tab PO HS JW Stop: 03/20/22 20:59 Last Admin: 02/25/22 21:16 Dose: 1 tab Cephalexin HCl (Cephalexin 500 Mg Cap) 500 mg PO BID JW; Protocol Stop: 03/01/22 20:59 Last Admin: 02/26/22 08:10 Dose: 500 mg Docusate Sodium (Docusate Sodium 100 Mg Cap) 100 mg PO BID PRN PRN Reason: Constipation Stop: 03/20/22 19:15 Last Admin: 02/21/22 08:25 Dose: 100 mg Ferrous Sulfate (Ferrous Sulfate 325 Mg Tab) 325 mg PO DAILY [facility] Stop: 03/21/22 08:59 Last Admin: 02/26/22 08:10 Dose: 325 mg Heparin Sodium (Porcine) (Heparin Sod 5,000 Unit/0.5 Ml Vial) 5,000 units SQ Q12 JW Stop: 03/20/22 20:59 Last Admin: 02/26/22 08:10 Dose: 5,000 units Hydralazine HCl (Hydralazine Hcl 20 Mg/Ml Vial) 5 mg IV Q6H PRN PRN Reason: SBP >160 Stop: 03/20/22 17:42 Last Admin: 02/19/22 05:13 Dose: 5 mg Potassium Chloride 40 meq/ (Sodium Chloride) 1,020 mls @ 40 mls/hr IV .Q24H [facility] Stop: 03/24/22 16:29 Last Admin: 02/25/22 21:38 Dose: 40 mls/hr Lactobacillus Acidophilus (Advanced Probiotic 1250 Mg Capsule) 2 cap PO QDL [facility] Stop: 03/21/22 11:29 Last Admin: 02/26/22 09:42 Dose: 2 cap Loperamide HCl (Loperamide Hcl 2 Mg Cap) 2 mg PO Q4H PRN PRN Reason: Diarrhea Stop: 03/27/22 15:18 Lorazepam (Lorazepam 0.5 Mg Tab) 0.25 mg PO BID PRN PRN Reason: Anxiety Stop: 03/23/22 12:05 Last Admin: 02/23/22 20:36 Dose: 0.25 mg Magnesium Oxide (Magnesium Oxide 400 Mg Tab) 400 mg PO DAILY JW Stop: 03/21/22 08:59 Last Admin: 02/26/22 08:11 Dose: 400 mg Multivitamins (Multivitamin Tab) 1 tab PO QAM JW Stop: 03/21/22 08:59 Last Admin: 02/26/22 08:10 Dose: 1 tab Ondansetron HCl (Ondansetron Inj 2 Mg/Ml 2 Ml Vial) 4 mg IV Q8H PRN PRN Reason: Nausea Stop: 03/22/22 08:40 Pantoprazole Sodium (Pantoprazole 40 Mg Tab) 40 mg PO DAILY JW Stop: 03/21/22 08:59 Last Admin: 02/26/22 08:10 Dose: 40 mg Potassium Chloride (Potassium Chloride Crtab 20 Meq Tabcr) 20 meq PO DAILY JW Stop: 03/27/22 08:59 Last Admin: 02/26/22 08:10 Dose: 20 meq Torsemide (Torsemide 10 Mg Tab) 40 mg PO QAM JW Stop: 03/28/22 08:59 Last Admin: 02/26/22 08:10 Dose: 40 mg
[2022-02-26] MEDS: ACETAMINOPHEN 325 MG TAB PO PRN (18:36)
[2022-02-26] MEDS ORDERED: POTASSIUM CHLORIDE CRTAB 20 MEQ TABCR PO ONE (19:57)
[2022-02-26] MEDS: ACETAMINOPHEN 325 MG TAB PO SCH (21:18)
[2022-02-26] MEDS: CARBIDOPA/LEVODOPA 50/200MG EXT REL TAB PO SCH (21:19)
[2022-02-26] MEDS: LORazepam 0.5 MG TAB PO PRN (21:20)
[2022-02-27] MEDS: CARBIDOPA/LEVODOPA 25/100MG TAB PO SCH ×5 (05:29→16:39)
[2022-02-27] MEDS: cephALEXin 500 MG CAP PO SCH ×2 (08:46→21:11)
[2022-02-27] MEDS: FERROUS SULFATE 325 MG TAB PO SCH (08:47)
[2022-02-27] MEDS: MULTIVITAMIN TAB PO SCH (08:47)
[2022-02-27] MEDS: TORSEMIDE 10 MG TAB PO SCH (08:47)
[2022-02-27] MEDS: POTASSIUM CHLORIDE CRTAB 20 MEQ TABCR PO SCH (08:48)
[2022-02-27] MEDS: PANTOprazole 40 MG TAB PO SCH (08:48)
[2022-02-27] MEDS: HEPARIN SOD 5,000 UNIT/0.5 ML VIAL SQ SCH ×2 (08:49→21:18)
[2022-02-27] MEDS: MAGNESIUM OXIDE 400 MG TAB PO SCH (08:52)
[2022-02-27] MEDS ORDERED: ACETAMINOPHEN 1000 MG/100 ML IV IV ONE (09:54)
[2022-02-27] MEDS: LORazepam 0.5 MG TAB PO PRN ×2 (13:34→21:09)
[2022-02-27] MEDS: ADVANCED PROBIOTIC 1250 MG CAPSULE PO SCH (13:34)
[2022-02-27] MEDS: DICLOFENAC SOD 1% GEL 100 GM TUBE EXT SCH ×2 (13:35→21:16)
--- NOTE | 2022-02-27 14:36 | Hospitalist Progress Note ---
Date of Service February 27, 2022 Assessment & Plan (1) Weakness: Plan: Remains generally weak and lethargic PT recommended rehab Will await case management input Remains weak and lethargic-awaiting placement in [facility] Has had a fall She sled down the chair No significant injury Remains hemodynamically stable (2) Acute hyponatremia: Plan: Present on admission with generalized weakness, weight loss and hyponatremia Na on admission 126, sodium within normal range in the past but noted to be 130 on 02/16/2022 Possible related to poor intake and increase water intake ( family said pt drink alot of water) Received IVF, Na 133 on the day of admission Urine sodium and creatinine normal Nephrology on board-appreciate input and recommendation Continue fluid restriction with 1.2L daily Lasix decreased to 40mg BID as per nephrology Pt encouraged to increase PO intake Sodium level remains low at 131 on 02/24/2022-we will keep monitoring Sodium level remains borderline low at 130's Medications were adjusted by the manager home improvement Will need to monitor PRP Will start sodium tablet 1 g twice daily (3) Weight loss: Plan: Unintentional 50 pound weight loss over the past [address] chest abdominal and pelvis showed acute finding. unfortunately Imaging were done without contrast Continue Ensure supplementation (4) Parkinson's disease: Plan: Follows with [place] [facility]. Continue Sinemet. Prescribed amantadine earlier this week but has not yet started medication Has minimal tremors involving the legs Has bilateral leg cramps Continues to have more tremors is contributed by severe anxiety We will try small dose of alprazolam (5) Urinary symptom or sign: Plan: UTI Urine cx positive for gram negative bacilli Currently on Rocephin Antibiotic is changed to oral Keflex Denies any urinary symptoms Continues to have incontinence of urine- we will put a Mckenzie (6) Elevated BP without diagnosis of hypertension: Plan: BP elevated in ED at 185/105 in setting of anxiety BP stable (7) Sinus tachycardia: Plan: Mostly due to anxiety Denies any chest pain or palpitations. High-sensitivity troponin within normal limits. stable -still having tachycardia at 105 Anxiety Continue Ativan PRN BID while in the hospital continue monitor (8) GERD (gastroesophageal reflux disease): Plan: Continue PPI DVT Ppx: SQ heparin Code status: FULL PCP: Connor Disposition will discharge once medically stable PT OT have been reordered Admission and Anticipated Discharge Date Admission Date: February 18, 2022 Subjective 02/24/2022 The patient was seen and examined in telemetry unit She has been feeling much better but complains to have weakness Denies any other significant symptoms 02/25/2022 The patient was seen and examined in telemetry unit She has been feeling generally weak but denies any other significant symptoms She has had PT evaluation and recommendation was to go to inpatient rehab She prefers to go home 02/26/2022 The patient was seen and examined in telemetry unit She complains to have weakness in the legs and remains pleasantly confused Denies any other significant symptoms 02/27/2022 The patient was seen and examined in telemetry unit She remains generally weak and lethargic and has had a fall while she was sitting on a chair She is slipped on the floor without any significant injury Complaint back pain and relieved with intravenous Tylenol Review of Systems Review of Systems: All systems reviewed and are unremarkable except as noted below Neurologic: Remains generally very weak Physical Exam Physical Exam: Lying in bed with acute distress due to back pain Constitutional: + ill appearing and average body habitus Eyes: PERRL, conjunctivae normal, anicteric sclerae ENMT: external ear and nose normal, oropharynx normal Neck: trachea midline, no thyromegaly Respiratory: no respiratory distress Auscultation: lungs clear to auscultation bilaterally Cardiovascular: Rate/Rhythm: regular rate, regular rhythm and + tachycardic Heart Sounds: normal S1 and normal S2 Extremities: no edema Gastrointestinal (Abdomen): Inspection/Auscultation: normal bowel sounds; abdomen not distended Percussion/Palpation: abdomen soft; abdomen nontender Musculoskeletal: No acute arthritis Neurologic: moves all extremities and + confused (Pleasantly confused); no focal motor deficits Has more tremors involving the extremities following the fall Lymphatic: no cervical or axillary lymphadenopathy Results & Data Results & Data ([facility]) Vital Signs (Past 12 Hours) Vital Signs Temp Pulse Pulse Resp BP BP Pulse Ox 02/27/22 12:23 37.0 C 106 H 18 138/86 98 02/27/22 11:36 94 H 02/27/22 08:16 36.7 C 108 H 16 121/80 95 02/27/22 05:38 36.8 C 103 H 18 140/86 97 O2 Del Method 02/27/22 12:23 Room Air 02/27/22 11:36 02/27/22 08:16 Room Air 02/27/22 05:38 Room Air Medications Administered Current Inpatient Medications Acetaminophen (Acetaminophen 325 Mg Tab) 650 mg PO HS [facility] Stop: 03/20/22 20:59 Last Admin: 02/26/22 21:18 Dose: 650 mg Acetaminophen (Acetaminophen 325 Mg Tab) 650 mg PO Q4H PRN PRN Reason: Pain or Fever Stop: 03/20/22 19:15 Last Admin: 02/26/22 18:36 Dose: 650 mg Carbidopa/Levodopa (Carbidopa/Levodopa 25/100mg Tab) 1.5 tab PO 0530,0830,1130,1430,1730 [facility] Stop: 03/21/22 05:29 Last Admin: 02/27/22 14:29 Dose: Not Given Carbidopa/Levodopa (Carbidopa/Levodopa 50/200mg Ext Rel Tab) 1 tab PO HS [facility] Stop: 03/20/22 20:59 Last Admin: 02/26/22 21:19 Dose: 1 tab Cephalexin HCl (Cephalexin 500 Mg Cap) 500 mg PO BID JW; Protocol Stop: 03/01/22 20:59 Last Admin: 02/27/22 08:46 Dose: 500 mg Diclofenac Sodium (Diclofenac Sod 1% Gel 100 Gm Tube) 2 gm EXT TID JW; Pro tocol Stop: 03/29/22 13:59 Last Admin: 02/27/22 13:35 Dose: 2 gm Docusate Sodium (Docusate Sodium 100 Mg Cap) 100 mg PO BID PRN PRN Reason: Constipation Stop: 03/20/22 19:15 Last Admin: 02/21/22 08:25 Dose: 100 mg Ferrous Sulfate (Ferrous Sulfate 325 Mg Tab) 325 mg PO DAILY [facility] Stop: 03/21/22 08:59 Last Admin: 02/27/22 08:47 Dose: 325 mg Heparin Sodium (Porcine) (Heparin Sod 5,000 Unit/0.5 Ml Vial) 5,000 units SQ Q12 JW Stop: 03/20/22 20:59 Last Admin: 02/27/22 08:49 Dose: 5,000 units Hydralazine HCl (Hydralazine Hcl 20 Mg/Ml Vial) 5 mg IV Q6H PRN PRN Reason: SBP >160 Stop: 03/20/22 17:42 Last Admin: 02/19/22 05:13 Dose: 5 mg Lactobacillus Acidophilus (Advanced Probiotic 1250 Mg Capsule) 2 cap PO QDL [facility] Stop: 03/21/22 11:29 Last Admin: 02/27/22 13:34 Dose: 2 cap Loperamide HCl (Loperamide Hcl 2 Mg Cap) 2 mg PO Q4H PRN PRN Reason: Diarrhea Stop: 03/27/22 15:18 Lorazepam (Lorazepam 0.5 Mg Tab) 0.25 mg PO BID PRN PRN Reason: Anxiety Stop: 03/23/22 12:05 Last Admin: 02/27/22 13:34 Dose: 0.25 mg Magnesium Oxide (Magnesium Oxide 400 Mg Tab) 400 mg PO DAILY [facility] Stop: 03/21/22 08:59 Last Admin: 02/27/22 08:52 Dose: 400 mg Multivitamins (Multivitamin Tab) 1 tab PO QAM [facility] Stop: 03/21/22 08:59 Last Admin: 02/27/22 08:47 Dose: 1 tab Ondansetron HCl (Ondansetron Inj 2 Mg/Ml 2 Ml Vial) 4 mg IV Q8H PRN PRN Reason: Nausea Stop: 03/22/22 08:40 Pantoprazole Sodium (Pantoprazole 40 Mg Tab) 40 mg PO DAILY [facility] Stop: 03/21/22 08:59 Last Admin: 02/27/22 08:48 Dose: 40 mg Potassium Chloride (Potassium Chloride Crtab 20 Meq Tabcr) 20 meq PO DAILY JW Stop: 03/27/22 08:59 Last Admin: 02/27/22 08:48 Dose: 20 meq Torsemide (Torsemide 10 Mg Tab) 40 mg PO QAM JW Stop: 03/28/22 08:59 Last Admin: 02/27/22 08:47 Dose: 40 mg
[2022-02-27] MEDS: ACETAMINOPHEN 325 MG TAB PO PRN (18:45)
[2022-02-27] MEDS: ACETAMINOPHEN 325 MG TAB PO SCH (21:08)
[2022-02-27] MEDS: CARBIDOPA/LEVODOPA 50/200MG EXT REL TAB PO SCH (21:10)
[2022-02-27] MEDS: SODIUM CHLORIDE 1 GM TABLET PO SCH (21:12)
[2022-02-28] MEDS ORDERED: oxyCODONE HCL IR 5 MG TAB (IMMEDIATE RELEASE) PO STA (00:08)
[2022-02-28] MEDS: CARBIDOPA/LEVODOPA 25/100MG TAB PO SCH ×5 (04:09→16:42)
[2022-02-28] MEDS: SODIUM CHLORIDE 1 GM TABLET PO SCH ×2 (07:11→21:07)
[2022-02-28] MEDS: DICLOFENAC SOD 1% GEL 100 GM TUBE EXT SCH ×3 (07:11→21:06)
[2022-02-28] MEDS: cephALEXin 500 MG CAP PO SCH ×2 (07:11→21:05)
[2022-02-28] MEDS: TORSEMIDE 10 MG TAB PO SCH (07:12)
[2022-02-28] MEDS: MULTIVITAMIN TAB PO SCH (07:12)
[2022-02-28] MEDS: FERROUS SULFATE 325 MG TAB PO SCH (07:13)
[2022-02-28] MEDS: POTASSIUM CHLORIDE CRTAB 20 MEQ TABCR PO SCH (07:13)
[2022-02-28] MEDS: HEPARIN SOD 5,000 UNIT/0.5 ML VIAL SQ SCH ×2 (07:14→21:06)
[2022-02-28] MEDS: PANTOprazole 40 MG TAB PO SCH (07:14)
[2022-02-28] MEDS: MAGNESIUM OXIDE 400 MG TAB PO SCH (07:16)
[2022-02-28 07:32] LABS: Basophils # (auto) 0.07 K/uL (0-0.2); Basophils % (auto) 0.7 %; Eosinophils # (auto) 0.03 K/uL (0-0.50); Eosinophils % (auto) 0.3 %; Hematocrit (blood only) 40.7 % (34.1-44.9); Hemoglobin 14.2 g/dl (12.0-16.0); Immature Granulocytes # (auto) 0.02 K/uL (0.00-0.02); Immature Granulocytes % (auto) 0.2 %; Lymphocytes # (auto) 1.96 K/uL (1.2-3.4); Lymphocytes % (auto) 20.9 %; Mean Corpuscular Hemoglobin 31.6 pg (25.0-34.0); Mean Corpuscular Hgb Conc 34.9 g/dL (32.0-36.0); Mean Corpuscular Volume 90.4 fL (80.0-100.0); Mean Platelet Volume 9.1 fL (9.4-12.3); Monocytes # (auto) 1.04 K/uL (0.24-0.82); Monocytes % (auto) 11.1 %; Neutrophils # (auto) 6.24 K/uL (1.4-6.5); Neutrophils % (auto) 66.8 %; Platelet Count 370 K/uL (130-400); RDW Standard Deviation 46.5 fL (36.4-46.3); White Blood Count 9.36 K/ul (4.8-10.8)
[2022-02-28 07:53] LABS: BUN Creatinine Ratio 49.4 (10-20); Calcium 10.7 mg/dl (8.5-10.1); Creatinine Clr Calc Pharmacy 45.8 ml/min; Est GFR (African American) 92.6 ml/min; Est GFR (Non-African American) 79.9 ml/min; Potassium 4.1 mmol/L (3.5-5.1)
--- NOTE | 2022-02-28 11:46 | Hospitalist Progress Note ---
Date of Service February 28, 2022 Assessment & Plan (1) Weakness: Plan: Remains generally weak and lethargic PT recommended rehab Will await case management input Remains weak and lethargic-awaiting placement in [place] [facility] Continue physical therapy Has had a fall She sled down the chair No significant injury Remains hemodynamically stable No pain and/or shortness of breath (2) Acute hyponatremia: Plan: Present on admission with generalized weakness, weight loss and hyponatremia Na on admission 126, sodium within normal range in the past but noted to be 130 on 02/16/2022 Possible related to poor intake and increase water intake ( family said pt drink alot of water) Received IVF, Na 133 on the day of admission Urine sodium and creatinine normal Nephrology on board-appreciate input and recommendation Continue fluid restriction with 1.2L daily Lasix decreased to 40mg BID as per nephrology Pt encouraged to increase PO intake Sodium level remains low at 131 on 02/24/2022-we will keep monitoring Sodium level remains borderline low at 130's Medications were adjusted by the ekg tech Will need to monitor PRP Will start sodium tablet 1 g twice daily Sodium level remains at 131 and will continue sodium tablet for now (3) Weight loss: Plan: Unintentional 50 pound weight loss over the past [address] chest abdominal and pelvis showed acute finding. unfortunately Imaging were done without contrast Continue Ensure supplementation (4) Parkinson's disease: Plan: Follows with [place] [facility]. Continue Sinemet. Prescribed amantadine earlier this week but has not yet started medication Has minimal tremors involving the legs Has bilateral leg cramps Continues to have more tremors is contributed by severe anxiety We will try small dose of alprazolam Resting tremor seems to be improving (5) Urinary symptom or sign: Plan: UTI Urine cx positive for gram negative bacilli Currently on Rocephin Antibiotic is changed to oral Keflex Denies any urinary symptoms Continues to have incontinence of urine- we will put a Mckenzie (6) Elevated BP without diagnosis of hypertension: Plan: BP elevated in ED at 185/105 in setting of anxiety BP stable (7) Sinus tachycardia: Plan: Mostly due to anxiety Denies any chest pain or palpitations. High-sensitivity troponin within normal limits. stable -still having tachycardia at 105 Anxiety Continue Ativan PRN BID while in the hospital continue monitor (8) GERD (gastroesophageal reflux disease): Plan: Continue PPI DVT Ppx: SQ heparin Code status: FULL PCP: Connor Disposition will discharge once medically stable PT OT have been reordered Admission and Anticipated Discharge Date Admission Date: February 18, 2022 Subjective 02/24/2022 The patient was seen and examined in telemetry unit She has been feeling much better but complains to have weakness Denies any other significant symptoms 02/25/2022 The patient was seen and examined in telemetry unit She has been feeling generally weak but denies any other significant symptoms She has had PT evaluation and recommendation was to go to inpatient rehab She prefers to go home 02/26/2022 The patient was seen and examined in telemetry unit She complains to have weakness in the legs and remains pleasantly confused Denies any other significant symptoms 02/27/2022 The patient was seen and examined in telemetry unit She remains generally weak and lethargic and has had a fall while she was sitting on a chair She is slipped on the floor without any significant injury Complaint back pain and relieved with intravenous Tylenol 02/28/2022 The patient was seen and examined in telemetry unit She remains weak and lethargic but denies any other symptoms Her back pain is controlled with Voltaren gel Tremor is much better Review of Systems Review of Systems: All systems reviewed and are unremarkable except as noted below Neurologic: Remains generally very weak Physical Exam Physical Exam: Lying in bed with acute distress due to back pain Constitutional: + ill appearing and average body habitus Eyes: PERRL, conjunctivae normal, anicteric sclerae ENMT: external ear and nose normal, oropharynx normal Neck: trachea midline, no thyromegaly Respiratory: no respiratory distress Auscultation: lungs clear to auscultation bilaterally Cardiovascular: Rate/Rhythm: regular rate, regular rhythm and + tachycardic Heart Sounds: normal S1 and normal S2 Extremities: no edema Gastrointestinal (Abdomen): Inspection/Auscultation: normal bowel sounds; abdomen not distended Percussion/Palpation: abdomen soft; abdomen nontender Musculoskeletal: No acute arthritis in any joint Neurologic: moves all extremities and + confused (Pleasantly confused); no focal motor deficits Lymphatic: no cervical or axillary lymphadenopathy Results & Data Results & Data ([facility]) Vital Signs (Past 12 Hours) Vital Signs Temp Pulse Pulse Resp BP Pulse Ox O2 Del Method 02/28/22 09:07 94 H 02/28/22 08:18 36.9 C 107 H 20 128/84 96 Room Air 02/28/22 03:00 36.8 C 105 H 14 145/87 H 95 Room Air 02/28/22 00:52 92 H Laboratory Results Short CBC 02/28/22 Range/Units 06:59 WBC 9.36 (4.8-10.8) K/ul Hgb 14.2 (12.0-16.0) g/dl Hct 40.7 (34.1-44.9) % Plt Count 370 (130-400) K/uL BMP 02/28/22 06:59 Sodium 132 L Potassium 4.1 Chloride 94 L Carbon Dioxide 30 BUN 38 H Creatinine 0.77 Glucose 107 H Calcium 10.7 H Medications Administered Current Inpatient Medications Acetaminophen (Acetaminophen 325 Mg Tab) 650 mg PO HS JW Stop: 03/20/22 20:59 Last Admin: 02/27/22 21:08 Dose: 650 mg Acetaminophen (Acetaminophen 325 Mg Tab) 650 mg PO Q4H PRN PRN Reason: Pain or Fever Stop: 03/20/22 19:15 Last Admin: 02/27/22 18:45 Dose: 650 mg Carbidopa/Levodopa (Carbidopa/Levodopa 25/100mg Tab) 1.5 tab PO 0530,0830,1130,1430,1730 JW Stop: 03/21/22 05:29 Last Admin: 02/28/22 07:09 Dose: 1.5 tab Carbidopa/Levodopa (Carbidopa/Levodopa 50/200mg Ext Rel Tab) 1 tab PO HS JW Stop: 03/20/22 20:59 Last Admin: 02/27/22 21:10 Dose: 1 tab Cephalexin HCl (Cephalexin 500 Mg Cap) 500 mg PO BID JW; Protocol Stop: 03/01/22 20:59 Last Admin: 02/28/22 07:11 Dose: 500 mg Diclofenac Sodium (Diclofenac Sod 1% Gel 100 Gm Tube) 2 gm EXT TID JW; Protocol Stop: 03/29/22 13:59 Last Admin: 02/28/22 07:11 Dose: 2 gm Docusate Sodium (Docusate Sodium 100 Mg Cap) 100 mg PO BID PRN PRN Reason: Constipation Stop: 03/20/22 19:15 Last Admin: 02/21/22 08:25 Dose: 100 mg Ferrous Sulfate (Ferrous Sulfate 325 Mg Tab) 325 mg PO DAILY [facility] Stop: 03/21/22 08:59 Last Admin: 02/28/22 07:13 Dose: 325 mg Heparin Sodium (Porcine) (Heparin Sod 5,000 Unit/0.5 Ml Vial) 5,000 units SQ Q12 JW Stop: 03/20/22 20:59 Last Admin: 02/28/22 07:14 Dose: 5,000 units Hydralazine HCl (Hydralazine Hcl 20 Mg/Ml Vial) 5 mg IV Q6H PRN PRN Reason: SBP >160 Stop: 03/20/22 17:42 Last Admin: 02/19/22 05:13 Dose: 5 mg Lactobacillus Acidophilus (Advanced Probiotic 1250 Mg Capsule) 2 cap PO QDL [facility] Stop: 03/21/22 11:29 Last Admin: 02/27/22 13:34 Dose: 2 cap Loperamide HCl (Loperamide Hcl 2 Mg Cap) 2 mg PO Q4H PRN PRN Reason: Diarrhea Stop: 03/27/22 15:18 Lorazepam (Lorazepam 0.5 Mg Tab) 0.25 mg PO BID PRN PRN Reason: Anxiety Stop: 03/23/22 12:05 Last Admin: 02/27/22 21:09 Dose: 0.25 mg Magnesium Oxide (Magnesium Oxide 400 Mg Tab) 400 mg PO DAILY [facility] Stop: 03/21/22 08:59 Last Admin: 02/28/22 07:16 Dose: 400 mg Multivitamins (Multivitamin Tab) 1 tab PO QAM [facility] Stop: 03/21/22 08:59 Last Admin: 02/28/22 07:12 Dose: 1 tab Ondansetron HCl (Ondansetron Inj 2 Mg/Ml 2 Ml Vial) 4 mg IV Q8H PRN PRN Reason: Nausea Stop: 03/22/22 08:40 Pantoprazole Sodium (Pantoprazole 40 Mg Tab) 40 mg PO DAILY [facility] Stop: 03/21/22 08:59 Last Admin: 02/28/22 07:14 Dose: 40 mg Potassium Chloride (Potassium Chloride Crtab 20 Meq Tabcr) 20 meq PO DAILY [facility] Stop: 03/27/22 08:59 Last Admin: 02/28/22 07:13 Dose: 20 meq Sodium Chloride (Sodium Chloride 1 Gm Tablet) 1 gm PO BID JW Stop: 03/29/22 20:59 Last Admin: 02/28/22 07:11 Dose: 1 gm Torsemide ([facility]sem[facility] 10 Mg Tab) [facility] [place] 03/28/22 08:59 Last Admin: 02/28/22 07:12 Dose: 40 mg
[2022-02-28] MEDS: ADVANCED PROBIOTIC 1250 MG CAPSULE PO SCH (11:48)
[2022-02-28] MEDS: CALCIUM CARBONATE 500 MG CHEWABLE TAB PO PRN (19:31)
[2022-02-28] MEDS: ACETAMINOPHEN 325 MG TAB PO SCH (21:02)
[2022-02-28] MEDS: LORazepam 0.5 MG TAB PO PRN (21:03)
[2022-02-28] MEDS: CARBIDOPA/LEVODOPA 50/200MG EXT REL TAB PO SCH (21:05)
[2022-03-01] MEDS: CARBIDOPA/LEVODOPA 25/100MG TAB PO SCH ×5 (04:00→17:02)
[2022-03-01] MEDS: LORazepam 0.5 MG TAB PO PRN (05:49)
[2022-03-01] MEDS: CALCIUM CARBONATE 500 MG CHEWABLE TAB PO PRN (06:31)
[2022-03-01 06:52] LABS: BUN Creatinine Ratio 51.9 (10-20); Calcium 10.3 mg/dl (8.5-10.1); Creatinine Clr Calc Pharmacy 43.5 ml/min; Est GFR (African American) 87.1 ml/min; Est GFR (Non-African American) 75.2 ml/min; Magnesium 2.6 mg/dl (1.7-2.4); Phosphorus 4.5 mg/dl (2.5-4.9); Potassium 3.9 mmol/L (3.5-5.1)
[2022-03-01] MEDS: MULTIVITAMIN TAB PO SCH (07:59)
[2022-03-01] MEDS: FERROUS SULFATE 325 MG TAB PO SCH (07:59)
[2022-03-01] MEDS: POTASSIUM CHLORIDE CRTAB 20 MEQ TABCR PO SCH (07:59)
[2022-03-01] MEDS: TORSEMIDE 10 MG TAB PO SCH (07:59)
[2022-03-01] MEDS: PANTOprazole 40 MG TAB PO SCH (07:59)
[2022-03-01] MEDS: SODIUM CHLORIDE 1 GM TABLET PO SCH ×2 (07:59→19:47)
[2022-03-01] MEDS: HEPARIN SOD 5,000 UNIT/0.5 ML VIAL SQ SCH ×2 (08:00→19:47)
[2022-03-01] MEDS: DICLOFENAC SOD 1% GEL 100 GM TUBE EXT SCH ×3 (08:00→19:47)
[2022-03-01] MEDS: cephALEXin 500 MG CAP PO SCH (08:00)
[2022-03-01] MEDS: MAGNESIUM OXIDE 400 MG TAB PO SCH (08:03)
[2022-03-01] MEDS: ADVANCED PROBIOTIC 1250 MG CAPSULE PO SCH (11:49)
--- NOTE | 2022-03-01 13:25 | Hospitalist Progress Note ---
Date of Service March 01, 2022 Assessment & Plan (1) Weakness: Plan: Remains generally weak and lethargic PT recommended rehab Will await case management input Remains weak and lethargic-awaiting placement in [facility] Continue physical therapy Remains weak but clinically better Has had a fall She sled down the chair No significant injury Remains hemodynamically stable No pain and/or shortness of breath No more pain (2) Acute hyponatremia: Plan: Present on admission with generalized weakness, weight loss and hyponatremia Na on admission 126, sodium within normal range in the past but noted to be 130 on 02/16/2022 Possible related to poor intake and increase water intake ( family said pt drink alot of water) Received IVF, Na 133 on the day of admission Urine sodium and creatinine normal Nephrology on board-appreciate input and recommendation Continue fluid restriction with 1.2L daily Lasix decreased to 40mg BID as per nephrology Pt encouraged to increase PO intake Sodium level remains low at 131 on 02/24/2022-we will keep monitoring Sodium level remains borderline low at 130's Medications were adjusted by the hostess host Will need to monitor PRP Will start sodium tablet 1 g twice daily Sodium level remains at 131 and will continue sodium tablet for now Was advised to take a little bit extra salt in diet (3) Weight loss: Plan: Unintentional 50 pound weight loss over the past [address] chest abdominal and pelvis showed acute finding. unfortunately Imaging were done without contrast Continue Ensure supplementation (4) Parkinson's disease: Plan: Follows with [place] [facility]. Continue Sinemet. Prescribed amantadine earlier this week but has not yet started medication Has minimal tremors involving the legs Has bilateral leg cramps Continues to have more tremors is contributed by severe anxiety We will try small dose of alprazolam Resting tremor seems to be improving No significant resting tremor (5) Urinary symptom or sign: Plan: UTI Urine cx positive for gram negative bacilli Currently on Rocephin Antibiotic is changed to oral Keflex Denies any urinary symptoms Continues to have incontinence of urine- we will put a Mckenzie Mckenzie catheter can be taken out on discharge (6) Elevated BP without diagnosis of hypertension: Plan: BP elevated in ED at 185/105 in setting of anxiety BP stable (7) Sinus tachycardia: Plan: Mostly due to anxiety Denies any chest pain or palpitations. High-sensitivity troponin within normal limits. stable -still having tachycardia at 105 Anxiety Continue Ativan PRN BID while in the hospital continue monitor (8) GERD (gastroesophageal reflux disease): Plan: Continue PPI DVT Ppx: SQ heparin Code status: FULL PCP: Connor Disposition will discharge once medically stable PT OT have been reordered Awaiting placement Admission and Anticipated Discharge Date Admission Date: February 18, 2022 Subjective 02/24/2022 The patient was seen and examined in telemetry unit She has been feeling much better but complains to have weakness Denies any other significant symptoms 02/25/2022 The patient was seen and examined in telemetry unit She has been feeling generally weak but denies any other significant symptoms She has had PT evaluation and recommendation was to go to inpatient rehab She prefers to go home 02/26/2022 The patient was seen and examined in telemetry unit She complains to have weakness in the legs and remains pleasantly confused Denies any other significant symptoms 02/27/2022 The patient was seen and examined in telemetry unit She remains generally weak and lethargic and has had a fall while she was sitting on a chair She is slipped on the floor without any significant injury Complaint back pain and relieved with intravenous Tylenol 02/28/2022 The patient was seen and examined in telemetry unit She remains weak and lethargic but denies any other symptoms Her back pain is controlled with Voltaren gel Tremor is much better 03/01/2022 The patient was seen and examined in telemetry unit She has been much better today and is not so confused Still complains of weakness Tremor seems to be improving Review of Systems Review of Systems: All systems reviewed and are unremarkable except as noted below Neurologic: Remains generally very weak Physical Exam Physical Exam: Lying in bed comfortably Constitutional: + ill appearing and average body habitus Eyes: PERRL, conjunctivae normal, anicteric sclerae ENMT: external ear and nose normal, oropharynx normal Neck: trachea midline, no thyromegaly Respiratory: no respiratory distress Auscultation: lungs clear to auscultation bilaterally Cardiovascular: Rate/Rhythm: regular rate, regular rhythm and + tachycardic Heart Sounds: normal S1 and normal S2 Extremities: no edema Gastrointestinal (Abdomen): Inspection/Auscultation: normal bowel sounds; abdomen not distended Percussion/Palpation: abdomen soft; abdomen nontender Musculoskeletal: No acute arthritis in any joint Neurologic: moves all extremities and + confused (Pleasantly confused); no focal motor deficits Lymphatic: no cervical or axillary lymphadenopathy Results & Data Results & Data ([facility]) Vital Signs (Past 12 Hours) Vital Signs Temp Pulse Pulse Resp BP Pulse Ox O2 Del Method 03/01/22 11:00 37 C 100 H 16 104/74 93 Room Air 03/01/22 08:00 94 H 03/01/22 07:57 36.7 C 03/01/22 07:57 102 H 18 131/83 97 Room Air 03/01/22 02:00 36.8 C 102 H 17 128/82 96 Room Air Laboratory Results BMP 03/01/22 06:09 Sodium 131 L Potassium 3.9 Chloride 92 L Carbon Dioxide 31 BUN 42 H Creatinine 0.81 Glucose 104 H Calcium 10.3 H Medications Administered Current Inpatient Medications Acetaminophen (Acetaminophen 325 Mg Tab) 650 mg PO HS [facility] Stop: 03/20/22 20:59 Last Admin: 02/28/22 21:02 Dose: 650 mg Acetaminophen (Acetaminophen 325 Mg Tab) 650 mg PO Q4H PRN PRN Reason: Pain or Fever Stop: 03/20/22 19:15 Last Admin: 02/27/22 18:45 Dose: 650 mg Calcium Carbonate (Calcium Carbonate 500 Mg Chewable Tab) 500 mg PO BID PRN PRN Reason: Indigestion Stop: 03/30/22 19:21 Last Admin: 03/01/22 06:31 Dose: 500 mg Carbidopa/Levodopa (Carbidopa/Levodopa 25/100mg Tab) 1.5 tab PO 0530,0830,1130,1430,1730 [facility] Stop: 03/21/22 05:29 Last Admin: 03/01/22 11:49 Dose: 1.5 tab Carbidopa/Levodopa (Carbidopa/Levodopa 50/200mg Ext Rel Tab) 1 tab PO HS [facility] Stop: 03/20/22 20:59 Last Admin: 02/28/22 21:05 Dose: 1 tab Cephalexin HCl (Cephalexin 500 Mg Cap) 500 mg PO BID [facility]; Protocol Stop: 03/01/22 20:59 Last Admin: 03/01/22 08:00 Dose: 500 mg Diclofenac Sodium (Diclofenac Sod 1% Gel 100 Gm Tube) 2 gm EXT TID JW; Protocol Stop: 03/29/22 13:59 Last Admin: 03/01/22 08:00 Dose: 2 gm Docusate Sodium (Docusate Sodium 100 Mg Cap) 100 mg PO BID PRN PRN Reason: Constipation Stop: 03/20/22 19:15 Last Admin: 02/21/22 08:25 Dose: 100 mg Ferrous Sulfate (Ferrous Sulfate 325 Mg Tab) 325 mg PO DAILY [facility] Stop: 03/21/22 08:59 Last Admin: 03/01/22 07:59 Dose: 325 mg Heparin Sodium (Porcine) (Heparin Sod 5,000 Unit/0.5 Ml Vial) 5,000 units SQ Q12 [facility] Stop: 03/20/22 20:59 Last Admin: 03/01/22 08:00 Dose: 5,000 units Hydralazine HCl (Hydralazine Hcl 20 Mg/Ml Vial) 5 mg IV Q6H PRN PRN Reason: SBP >160 Stop: 03/20/22 17:42 Last Admin: 02/19/22 05:13 Dose: 5 mg Lactobacillus Acidophilus (Advanced Probiotic 1250 Mg Capsule) 2 cap PO QDL [facility] Stop: 03/21/22 11:29 Last Admin: 03/01/22 11:49 Dose: 2 cap Loperamide HCl (Loperamide Hcl 2 Mg Cap) 2 mg PO Q4H PRN PRN Reason: Diarrhea Stop: 03/27/22 15:18 Lorazepam (Lorazepam 0.5 Mg Tab) 0.25 mg PO BID PRN PRN Reason: Anxiety Stop: 03/23/22 12:05 Last Admin: 03/01/22 05:49 Dose: 0.25 mg Magnesium Oxide (Magnesium Oxide 400 Mg Tab) 400 mg PO DAILY [facility] Stop: 03/21/22 08:59 Last Admin: 03/01/22 08:03 Dose: 400 mg Multivitamins (Multivitamin Tab) 1 tab PO QAM [facility] Stop: 03/21/22 08:59 Last Admin: 03/01/22 07:59 Dose: 1 tab Ondansetron HCl (Ondansetron Inj 2 Mg/Ml 2 Ml Vial) 4 mg IV Q8H PRN PRN Reason: Nausea Stop: 03/22/22 08:40 Last Admin: 02/28/22 11:55 Dose: 4 mg Pantoprazole Sodium (Pantoprazole 40 Mg Tab) 40 mg PO DAILY [facility] Stop: 03/21/22 08:59 Last Admin: 03/01/22 07:59 Dose: 40 mg Potassium Chloride (Potassium Chloride Crtab 20 Meq Tabcr) 20 meq PO DAILY [facility] Stop: 03/27/22 08:59 Last Admin: 03/01/22 07:59 Dose: 20 meq Sodium Chloride (Sodium Chloride 1 Gm Tablet) 1 gm PO BID [facility] Stop: 03/29/22 20:59 Last Admin: 03/01/22 07:59 Dose: 1 gm Torsemide (Torsemide 10 Mg Tab) 40 mg PO QAM [facility] Stop: 03/28/22 08:59 Last Admin: 03/01/22 07:59 Dose: 40 mg
[2022-03-01] MEDS: ACETAMINOPHEN 325 MG TAB PO SCH (19:46)
[2022-03-01] MEDS: CARBIDOPA/LEVODOPA 50/200MG EXT REL TAB PO SCH (19:47)
[2022-03-02] MEDS: CALCIUM CARBONATE 500 MG CHEWABLE TAB PO PRN (00:44)
[2022-03-02] MEDS: LORazepam 0.5 MG TAB PO PRN (00:47)
[2022-03-02] MEDS: CARBIDOPA/LEVODOPA 25/100MG TAB PO SCH ×3 (06:08→11:34)
[2022-03-02 07:59] VITALS: TEMP 98.2
[2022-03-02] MEDS: TORSEMIDE 10 MG TAB PO SCH (08:48)
[2022-03-02] MEDS: POTASSIUM CHLORIDE CRTAB 20 MEQ TABCR PO SCH (08:48)
[2022-03-02] MEDS: SODIUM CHLORIDE 1 GM TABLET PO SCH (08:48)
[2022-03-02] MEDS: PANTOprazole 40 MG TAB PO SCH (08:48)
[2022-03-02] MEDS: FERROUS SULFATE 325 MG TAB PO SCH (08:48)
[2022-03-02] MEDS: MULTIVITAMIN TAB PO SCH (08:48)
[2022-03-02] MEDS: HEPARIN SOD 5,000 UNIT/0.5 ML VIAL SQ SCH (08:49)
[2022-03-02] MEDS: DICLOFENAC SOD 1% GEL 100 GM TUBE EXT SCH (08:49)
[2022-03-02] MEDS: MAGNESIUM OXIDE 400 MG TAB PO SCH (10:43)
--- NOTE | 2022-03-02 11:07 | Hospitalist Progress Note ---
Date of Service March 02, 2022 Assessment & Plan (1) Weakness: Plan: Remains generally weak and lethargic PT recommended rehab Will await case management input Remains weak and lethargic-awaiting placement in [facility] Continue physical therapy She has been accepted to [facility] Remains medically stable without any more confusion She was advised to have extra salt in diet Has had a fall She sled down the chair No significant injury Remains hemodynamically stable No pain and/or shortness of breath No more pain (2) Acute hyponatremia: Plan: Present on admission with generalized weakness, weight loss and hyponatremia Na on admission 126, sodium within normal range in the past but noted to be 130 on 02/16/2022 Possible related to poor intake and increase water intake ( family said pt drink alot of water) Received IVF, Na 133 on the day of admission Urine sodium and creatinine normal Nephrology on board-appreciate input and recommendation Continue fluid restriction with 1.2L daily Lasix decreased to 40mg BID as per nephrology Pt encouraged to increase PO intake Sodium level remains low at 131 on 02/24/2022-we will keep monitoring Sodium level remains borderline low at 130's Medications were adjusted by the corner trimmer operator Will need to monitor PRP Will start sodium tablet 1 g twice daily Sodium level remains at 131 and will continue sodium tablet for now Was advised to take a little bit extra salt in diet (3) Weight loss: Plan: Unintentional 50 pound weight loss over the past [address] chest abdominal and pelvis showed acute finding. unfortunately Imaging were done without contrast Continue Ensure supplementation (4) Parkinson's disease: Plan: Follows with [place] [facility]. Continue Sinemet. Prescribed amantadine earlier this week but has not yet started medication Has minimal tremors involving the legs Has bilateral leg cramps Continues to have more tremors is contributed by severe anxiety We will try small dose of alprazolam Resting tremor seems to be improving No significant resting tremor at rest (5) Urinary symptom or sign: Plan: UTI Urine cx positive for gram negative bacilli Currently on Rocephin Antibiotic is changed to oral Keflex Denies any urinary symptoms Continues to have incontinence of urine- we will put a Mckenzie Mckenzie catheter can be taken out on discharge Will DC Mckenzie today (6) Elevated BP without diagnosis of hypertension: Plan: BP elevated in ED at 185/105 in setting of anxiety BP stable (7) Sinus tachycardia: Plan: Mostly due to anxiety Denies any chest pain or palpitations. High-sensitivity troponin within normal limits. stable -still having tachycardia at 105 Tachycardia is better Anxiety Continue Ativan PRN BID while in the hospital continue monitor (8) GERD (gastroesophageal reflux disease): Plan: Continue PPI DVT Ppx: SQ heparin Code status: FULL PCP: Connor Disposition will discharge once medically stable PT OT have been reordered Awaiting placement-she has been accepted to [facility] and will be transferred sometime this afternoon Admission and Anticipated Discharge Date Admission Date: February 18, 2022 Subjective 02/24/2022 The patient was seen and examined in telemetry unit She has been feeling much better but complains to have weakness Denies any other significant symptoms 02/25/2022 The patient was seen and examined in telemetry unit She has been feeling generally weak but denies any other significant symptoms She has had PT evaluation and recommendation was to go to inpatient rehab She prefers to go home 02/26/2022 The patient was seen and examined in telemetry unit She complains to have weakness in the legs and remains pleasantly confused Denies any other significant symptoms 02/27/2022 The patient was seen and examined in telemetry unit She remains generally weak and lethargic and has had a fall while she was sitting on a chair She is slipped on the floor without any significant injury Complaint back pain and relieved with intravenous Tylenol 02/28/2022 The patient was seen and examined in telemetry unit She remains weak and lethargic but denies any other symptoms Her back pain is controlled with Voltaren gel Tremor is much better 03/01/2022 The patient was seen and examined in telemetry unit She has been much better today and is not so confused Still complains of weakness Tremor seems to be improving 03/02/2022 The patient was seen and examined in telemetry unit She has been feeling much better and does not have any more confusion Remains weak and has tremors from Parkinson disease Review of Systems Review of Systems: All systems reviewed and are unremarkable except as noted below Neurologic: Remains generally very weak Physical Exam Physical Exam: Lying in bed comfortably Constitutional: average body habitus; not ill appearing Eyes: PERRL, conjunctivae normal, anicteric sclerae ENMT: external ear and nose normal, oropharynx normal Neck: trachea midline, no thyromegaly Respiratory: no respiratory distress Auscultation: lungs clear to auscultation bilaterally Cardiovascular: Rate/Rhythm: regular rate, regular rhythm and + tachycardic Heart Sounds: normal S1 and normal S2 Extremities: no edema Gastrointestinal (Abdomen): Inspection/Auscultation: normal bowel sounds; abdomen not distended Percussion/Palpation: abdomen soft; abdomen nontender Musculoskeletal: No acute arthritis in any joint. The back pain is controlled Neurologic: moves all extremities; no focal motor deficits and not confused (Pleasantly confused) Psychiatric: A+Ox3, euthymic affect Lymphatic: no cervical or axillary lymphadenopathy Results & Data Results & Data ([facility]) Vital Signs (Past 12 Hours) Vital Signs Temp Pulse Pulse Resp BP Pulse Ox O2 Del Method 03/02/22 07:00 36.8 C 92 H 16 109/66 97 Room Air 03/02/22 03:00 36.9 C 94 H 15 128/75 93 Room Air 03/02/22 00:49 91 H Medications Administered Current Inpatient Medications Acetaminophen (Acetaminophen 325 Mg Tab) [address] [facility] Stop: 03/20/22 20:59 Last Admin: 03/01/22 19:46 Dose: 650 mg Acetaminophen (Acetaminophen 325 Mg Tab) 650 mg PO Q4H PRN PRN Reason: Pain or Fever Stop: 03/20/22 19:15 Last Admin: 02/27/22 18:45 Dose: 650 mg Calcium Carbonate (Calcium Carbonate 500 Mg Chewable Tab) 500 mg PO BID PRN PRN Reason: Indigestion Stop: 03/30/22 19:21 Last Admin: 03/02/22 00:44 Dose: 500 mg Carbidopa/Levodopa (Carbidopa/Levodopa 25/100mg Tab) 1.5 tab PO 0530,0830,1130,1430,1730 [facility] Stop: 03/21/22 05:29 Last Admin: 03/02/22 08:48 Dose: 1.5 tab Carbidopa/Levodopa (Carbidopa/Levodopa 50/200mg Ext Rel Tab) [address] [facility] Stop: 03/20/22 20:59 Last Admin: 03/01/22 19:47 Dose: 1 tab Diclofenac Sodium (Diclofenac Sod 1% Gel 100 Gm Tube) 2 gm EXT TID [facility]; Protocol Stop: 03/29/22 13:59 Last Admin: 03/02/22 08:49 Dose: 2 gm Docusate Sodium (Docusate Sodium 100 Mg Cap) 100 mg PO BID PRN PRN Reason: Constipation Stop: 03/20/22 19:15 Last Admin: 02/21/22 08:25 Dose: 100 mg Ferrous Sulfate (Ferrous Sulfate 325 Mg Tab) 325 mg PO DAILY [facility] Stop: 03/21/22 08:59 Last Admin: 03/02/22 08:48 Dose: 325 mg Heparin Sodium (Porcine) (Heparin Sod 5,000 Unit/0.5 Ml Vial) 5,000 units SQ Q12 [facility] Stop: 03/20/22 20:59 Last Admin: 03/02/22 08:49 Dose: 5,000 units Hydralazine HCl (Hydralazine Hcl 20 Mg/Ml Vial) 5 mg IV Q6H PRN PRN Reason: SBP >160 Stop: 03/20/22 17:42 Last Admin: 02/19/22 05:13 Dose: 5 mg Lactobacillus Acidophilus (Advanced Probiotic 1250 Mg Capsule) 2 cap PO QDL [facility] Stop: 03/21/22 11:29 Last Admin: 03/01/22 11:49 Dose: 2 cap Loperamide HCl (Loperamide Hcl 2 Mg Cap) 2 mg PO Q4H PRN PRN Reason: Diarrhea Stop: 03/27/22 15:18 Lorazepam (Lorazepam 0.5 Mg Tab) 0.25 mg PO BID PRN PRN Reason: Anxiety Stop: 03/23/22 12:05 Last Admin: 03/02/22 00:47 Dose: 0.25 mg Magnesium Oxide (Magnesium Oxide 400 Mg Tab) 400 mg PO DAILY [facility] Stop: 03/21/22 08:59 Last Admin: 03/02/22 10:43 Dose: Not Given Multivitamins (Multivitamin Tab) 1 tab PO QAM [facility] Stop: 03/21/22 08:59 Last Admin: 03/02/22 08:48 Dose: 1 tab Ondansetron HCl (Ondansetron Inj 2 Mg/Ml 2 Ml Vial) 4 mg IV Q8H PRN PRN Reason: Nausea Stop: 03/22/22 08:40 Last Admin: 02/28/22 11:55 Dose: 4 mg Pantoprazole Sodium (Pantoprazole 40 Mg Tab) 40 mg PO DAILY [facility] Stop: 03/21/22 08:59 Last Admin: 03/02/22 08:48 Dose: 40 mg Potassium Chloride (Potassium Chloride Crtab 20 Meq Tabcr) 20 meq PO DAILY [facility] Stop: 03/27/22 08:59 Last Admin: 03/02/22 08:48 Dose: 20 meq Sodium Chloride (Sodium Chloride 1 Gm Tablet) 1 gm PO BID [facility] Stop: 03/29/22 20:59 Last Admin: 03/02/22 08:48 Dose: 1 gm Torsemide (Torsemide 10 Mg Tab) 40 mg PO QAM [facility] Stop: 03/28/22 08:59 Last Admin: 03/02/22 08:48 Dose: 40 mg
[2022-03-02] MEDS: ADVANCED PROBIOTIC 1250 MG CAPSULE PO SCH (11:34)
[2022-03-02 11:55] VITALS: PULSE 100; O2SAT 94
[2022-03-02 12:08] VITALS: BP 123/78
--- NOTE | 2022-03-10 09:33 | Discharge Summary ---
Date of Service March 02, 2022 Admission HPI Per Admitting Provider This is a 66-year-old female with PMH of Parkinson's disease, iron deficiency anemia, restless leg syndrome and other medical problems listed below who presents with weight loss and generalized weakness. Per outpatient chart, patient has lost 50 pounds in the past 2 years in the setting of decreased appetite. Does have some nausea but has been drinking Ensure, Combs instant breakfast over the past few weeks. States she eats burgers and pizza and is not intending to lose weight. Over the past 2 weeks, patient has become more generally weak. Denies any focal weakness or falls. No fever, chills, congesti on or cough. No chest pain or palpitations. No shortness of breath. Has intermittent nausea but denies any vomiting. Has ongoing constipation issues from iron supplement but had bowel movement this morning. States she has experienced increased urinary frequency and urgency over the past week but denies any hematuria, dysuria. Follows with neurologist Dr. Dean in [place] who added Amantadine 100mg earlier this week to help with dyskinesias, she is yet to start. Outpatient lab work from earlier this week revealed a sodium of 130. Patient lives at home and does not currently use any assistive devices to ambulate. Admission Exam Per Admitting Provider Physical Exam: General Appearance:WD/WN, vitals as above, NAD, sitting up in bed, pleasant, anxious Head: normocephalic, atraumatic Eyes:normal inspection, PERRL, conjunctivae normal, anicteric sclerae ENT: external ear and nose normal, oropharynx normal Neck: normal visual inspection, trachea midline, no thyromegaly Respiratory:normal respiratory effort, lungs clear to auscultation, no wheeze, rales, rhonchi. No accessory muscle use Cardiovascular: tachycardic rate, regular rhythm, no murmur, normal peripheral pulses, no BLE edema. Vessels: no JVD Chest: normal inspection of chest Abdomen/GI: normal bowel sounds, soft, mild TTP of LLQ, no guarding, no hepatosplenomegaly Extremities/Musculoskeletal: no cyanosis or clubbing, extremities motor strength 5/5 Neurologic: PERRL, EOMI, accommodation nl, no face palsy, no dysarthria, CN's II-XI intact bilaterally and moves all extremities Psychiatric:A+Ox3, anxious Skin: no rashes, normal color, warm/dry Principal Diagnosis Generalized weakness, Parkinson disease, hyponatremia Discharge Exam Lying in bed comfortably Constitutional average body habitus; not ill appearing Eyes PERRL, conjunctivae normal, anicteric sclerae ENMT external ear and nose normal, oropharynx normal Neck trachea midline, no thyromegaly Respiratory no respiratory distress Auscultation: lungs clear to auscultation bilaterally Cardiovascular Rate/Rhythm: regular rate, regular rhythm and + tachycardic Heart Sounds: normal S1 and normal S2 Extremities: no edema Gastrointestinal (Abdomen) Inspection/Auscultation: normal bowel sounds; abdomen not distended Percussion/Palpation: abdomen soft; abdomen nontender Neurologic moves all extremities; no focal motor deficits and not confused (Pleasantly confused) Psychiatric A+Ox3, euthymic affect Lymphatic no cervical or axillary lymphadenopathy Discharge Data Allergies Allergy/AdvReac Type Severity Reaction Status Date / Time No Known Allergies Allergy Verified 02/18/22 16:55 Consultations 02/18/22 16:54 ED Decision to Admit Stat 02/19/22 07:14 Consult Nephrology Routine Ordered Studies 02/18/22 17:40 CT chest diagnostic wo con Urgent 02/18/22 17:42 CT Abd and Pelvis [CT abd pelvis wo con] Urgent Hospital Course (1) Weakness: Remains generally weak and lethargic PT recommended rehab Will await case management input Remains weak and lethargic-awaiting placement in [facility] Continue physical therapy She has been accepted to [facility] Remains medically stable without any more confusion She was advised to have extra salt in diet Has had a fall She sled down the chair No significant injury Remains hemodynamically stable No pain and/or shortness of breath No more pain (2) Acute hyponatremia: Present on admission with generalized weakness, weight loss and hyponatremia Na on admission 126, sodium within normal range in the past but noted to be 130 on 02/16/2022 Possible related to poor intake and increase water intake ( family said pt drink alot of water) Received IVF, Na 133 on the day of admission Urine sodium and creatinine normal Nephrology on board-appreciate input and recommendation Continue fluid restriction with 1.2L daily Lasix decreased to 40mg BID as per nephrology Pt encouraged to increase PO intake Sodium level remains low at 131 on 02/24/2022-we will keep monitoring Sodium level remains borderline low at 130's Medications were adjusted by the gang sawyer Will need to monitor PRP Will start sodium tablet 1 g twice daily Sodium level remains at 131 and will continue sodium tablet for now Was advised to take a little bit extra salt in diet (3) Weight loss: Unintentional 50 pound weight loss over the past [address] chest abdominal and pelvis showed acute finding. unfortunately Imaging were done without contrast Continue Ensure supplementation (4) Parkinson's disease: Follows with [place] [facility]. Continue Sinemet. Prescribed amantadine earlier this week but has not yet started medication Has minimal tremors involving the legs Has bilateral leg cramps Continues to have more tremors is contributed by severe anxiety We will try small dose of alprazolam Resting tremor seems to be improving No significant resting tremor at rest (5) Urinary symptom or sign: UTI Urine cx positive for gram negative bacilli Currently on Rocephin Antibiotic is changed to oral Keflex Denies any urinary symptoms Continues to have incontinence of urine- we will put a Mckenzie Mckenzie catheter can be taken out on discharge Will DC Mckenzie today (6) Elevated BP without diagnosis of hypertension: BP elevated in ED at 185/105 in setting of anxiety BP stable (7) Sinus tachycardia: Mostly due to anxiety Denies any chest pain or palpitations. High-sensitivity troponin within normal limits. stable -still having tachycardia at 105 Tachycardia is better Anxiety Continue Ativan PRN BID while in the hospital continue monitor (8) GERD (gastroesophageal reflux disease): Continue PPI DVT Ppx: SQ heparin Code status: FULL PCP: Connor Disposition will discharge once medically stable PT OT have been reordered Awaiting placement-she has been accepted to [facility] and will be transferred sometime this afternoon Total Time Total Time Spent Total Time Spent (In Minutes): 35 minutes Discharge Plan Discharge Items Patient Disposition: Transfer Inpatient Rehab Fac Reason For Visit: HYPONATREMIA, GENERALIZED WEAKNESS Discharge Diagnosis: Generalized weakness, Parkinson disease, hyponatremia Condition on Discharge: Fair Activity: Resume your previous activity Non-emergency contact: Primary Care Provider Call non-emergency contact if: you have any medication questions and your symptoms worsen Follow-up/Referrals: Veor Pruett MD, PhD [Physician] - (Please make an appointment in 2 to 4 weeks) Concepción Cline PA-C [Primary Care Provider] - (Please make an appointment with your primary care provider within 7 days following discharge from the facility ) Diet: Regular Fluids: 1200ml (5 cups) Diet Texture: Easy to Chew Addtl Attending Provider Instructions: Please take precautions to avoid fall Try to take extra salt in your diet Have your BMP checked weekly with report to Dr. Arthur, the gang sawyer Continue PT and OT Please give appointment with your healthcare providers Pending Studies at Discharge: No Stand-Alone Forms: My [facility] Skilled Items Patient informed of condition?: Yes DNR: No Discharge Level of Care: Acute rehab Communicable Disease: No Discharge Prognosis: Stable Lines: None Urinary Catheter: No Medications and DC Order Prescriptions: New diclofenac sodium [Voltaren Arthritis Pain] 1 % Gel 2 g EXT TID Qty: 50 0RF Rx Instructions: Lower back potassium chloride 20 mEq Tablet,Er Particles/Crystals 20 meq PO DAILY Qty: 30 0RF torsemide 10 mg Tablet 40 mg PO QAM Qty: 30 0RF Continued carbidopa-levodopa 25-100 mg tablet extended release 1.5 tab PO 5XD Rx Instructions: TAKES AT 0530, 0830, 1130, 1430, & 1730 loperamide [Imodium A-D] 2 mg Capsule 2 mg PO QID PRN (Reason: Diarrhea) carbidopa-levodopa 50-200 mg tablet extended release 1 tab PO HS acetaminophen [Tylenol 8 Hour] 650 mg Tablet Extended Release 650 mg PO HS ferrous sulfate 325 mg (65 mg iron) Tablet 325 mg PO DAILY bismuth subsalicylate [Pepto-Bismol] 262 mg/15 mL Suspension 524 mg PO Q4H PRN (Reason: Gi Upset) magnesium 250 mg Tablet 250 mg PO DAILY multivitamin with minerals Tablet 1 tab PO DAILY Probiotic 10 billion cell Capsule 10,000 mmu cells PO QDL amantadine HCl 100 mg capsule 100 mg PO DAILY Rx Instructions: prescribed on 02/16/22 omeprazole 40 mg capsule,delayed release(DR/EC) 40 mg PO DAILY Discharge Orders: Discharge Order (Routine); Ordered 03/02/22 Ordered By: Shar Pichardo Admission Data Admit Date/Time: 02/18/22 16:52 Attending Provider: Shar Pichardo Admit Provider: Je Scales Primary Care Provider: Concepción Cline Other Providers: Je Scales ; Aston Colin ; [facility] ; Manisha Sandoval ; [facility] ; [place],[facility]
== END 2022-03-02 12:53 | DRG 644 ==
LOC: ED 14:04 → EDINP 16:52 → SUATTDRO 16:52 → 2E 22:40
DX: N39.0 Urinary tract infection, site not specified; R00.0 Tachycardia, unspecified; Z68.21 Body mass index [BMI] 21.0-21.9, adult; F41.9 Anxiety disorder, unspecified; R63.4 Abnormal weight loss; R13.10 Dysphagia, unspecified; G20 Parkinson's disease; K21.9 Gastro-esophageal reflux disease without esophagitis; R03.0 Elevated blood-pressure reading, without diagnosis of hypertension; G25.81 Restless legs syndrome; E22.2 Syndrome of inappropriate secretion of antidiuretic hormone

== ENCOUNTER 2025-05-08 04:54 | Inpatient (IN) ==
[2025-05-08 05:33] LABS: Hematocrit (blood only) 37.5 % (37.0-47.0); Hemoglobin 12.4 g/dl (12.0-16.0); Immature Granulocytes # (auto) 0.02 K/uL (0.01-0.20); Immature Granulocytes % (auto) 0.3 %; Mean Corpuscular Hemoglobin 30.5 pg (25.0-34.0); Mean Corpuscular Volume 92.4 fL (80.0-100.0); Platelet Count 365 K/uL (130-400); RDW Standard Deviation 51.2 fL (36.4-46.3); Red Blood Count 4.06 M/uL (4.20-5.40); White Blood Count 7.34 K/ul (4.8-10.8)
[2025-05-08 05:50] LABS: Alanine Aminotransferase 3.0 U/L (7-52); Albumin Globulin Ratio 1.5 (0.9-2); Albumin Level 4.4 gm/dl (3.4-5.0); Alkaline Phosphatase 73.0 U/L (34-104); Anion Gap 9.0 (3-11); Bilirubin,Total 0.7 mg/dl (0.2-1.0); Blood Urea Nitrogen 12.0 mg/dl (6-23); Calcium 9.7 mg/dl (8.6-10.3); Carbon Dioxide 25.0 mmol/L (21-32); Chloride 104.0 mmol/L (98-107); Creatinine Clr Calc Pharmacy 67.6 ml/min; Globulin 3.0 gm/dl (2.5-4.0); Glucose 96.0 mg/dl (70-99(Fasting)); Potassium 3.9 mmol/L (3.5-5.1); Sodium 138.0 mmol/L (136-145); Total Protein 7.4 gm/dl (6.0-8.3)
[2025-05-08] MEDS: ONDANSETRON INJ 2 MG/ML 2 ML VIAL IV STA (06:07)
--- NOTE | 2025-05-08 06:07 | CT Scan Report ---
EXAM: CT head/brain wo con CLINICAL HISTORY: Head trauma moderate-severe TECHNIQUE: Multiple axial images were obtained from the skull base to the vertex without contrast. The CT scan was performed according to ALARA (as low as reasonably achievable). 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 FINDINGS: There is cerebral atrophy. No evidence of space-occupying lesion, hemorrhage, edema, mass effect, midline shift, extra-axial collection, or hydrocephalus is noted. The basal cisterns are symmetric and normal in size and configuration. There are scattered periventricular hypodensities as can be seen with chronic microvascular ischemic changes. The contreras-white matter differentiation is preserved. The visualized paranasal sinuses and mastoid air cells are well aerated. Orbital contents are within normal limits. Bony structures are intact. IMPRESSION: 1. No evidence of acute intracranial abnormality is demonstrated. 2. Chronic microvascular ischemic changes, stable. 3. Cerebral atrophy, stable. Electronically signed by Duarte Antonio 05-08-2025 06:06 AM
--- NOTE | 2025-05-08 06:16 | CT Scan Report ---
EXAM: CT cervical spine wo con CLINICAL HISTORY: Neck trauma TECHNIQUE: Computed tomography of the cervical spine was performed without intravenous contrast. Contiguous axial images were obtained from the skull base to T2, with sagittal and coronal reformatted images reconstructed from the axial data. The CT scan was performed according to ALARA (as low as reasonably achievable). 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 FINDINGS: There is loss of cervical lordosis, which suggests the possibility of muscle spasm or positional change. There are degenerative changes involving the cervical spine in the form of multilevel marginal osteophytes, disc space reduction, and facetal arthrosis. The cervical vertebral bodies are normal in height and alignment, with no evidence of fracture or subluxation. The lateral masses of C1 are symmetrical, and the dens is intact. The prevertebral soft tissues are not widened. The remaining suprahyoid and infrahyoid soft tissues in the neck are unremarkable. Posterior uncovertebral arthrosis is noted at the C4-C5 to C6-C7 levels, which indents the ventral thecal sac and causes bilateral neuroforaminal narrowing. The thyroid gland appears unremarkable. IMPRESSION: 1. No acute fracture or subluxation in the cervical spine. 2. Cervical spondylosis, stable. No other new interval abnormality since the prior study. Electronically signed by Duarte Antonio 05-08-2025 06:16 AM
--- NOTE | 2025-05-08 06:18 | XRay Report ---
EXAM: XR chest 1V portable CLINICAL HISTORY: Trauma TECHNIQUE: An X-ray image of the chest was obtained in the AP portable projection. COMPARISON: 03/07/2025 FINDINGS: Pulmonary Parenchyma: The lungs are clear bilaterally. There is no evidence of consolidation, collapse, or focal opacities. No pulmonary nodules are identified. There is no evidence of pleural effusion or pleural thickening. Heart and Mediastinum: The heart size and shape are normal. There is no mediastinal widening or masses. No hilar or mediastinal lymphadenopathy is identified. Bony Thorax: The bony thorax appears intact without fractures or deformities. Soft Tissues: The soft tissues overlying the chest wall are unremarkable. IMPRESSION: 1. The bony chest is unremarkable. No acute cardiopulmonary abnormalities are identified. 2. No changes compared to the prior X-ray dated 03/07/2025. Electronically signed by Mick Angel 05-08-2025 06:17 AM
--- NOTE | 2025-05-08 06:22 | Emergency Department Note ---
Impression & Plan Falls frequently, Rib fractures, Closed head injury Admit to the [facility] ED Provider Note NAME: DANNIE ANDRADE AGE: 69 SEX: Female INFORMANT: Patient ED PROVIDER(S): Lizeth Beltre DO CHIEF COMPLAINT: multiple falls PLAN: Disposition: admit to the [facility] MEDICAL DECISION MAKING: This is a 69-year-old female patient with a history of Parkinson's disease who suffered a fall 2 days ago where she struck the right flank, midline low back, and right buttocks. She did not seek care at that time. She woke up this morning at 3:45 AM and suffered another fall where she struck the back of her head and complains of neck pain. she did not lose consciousness. The patient was an injury alert. chest x-ray was unremarkable. The patient went for CT scan of her brain, cervical spine, chest, abdomen/pelvis. This revealed evidence of bilateral lower rib fractures. Laboratory studies were performed and revealed no leukocytosis or anemia. Renal function was normal although BUN/creatinine ratio was slightly elevated at 24. Coagulation studies were normal. A rib belt was applied to her fractures. Nursing staff attempted to get the patient up for potential discharge but she had extreme weakness and was unsteady on her feet. The family went on to explain to me that she has had increased generalized weakness and has had some hallucinations and wondered if she had a urinary tract infection. At that point, the patient was catheterized for urine which showed ketones but no other signs of infection. [facility] care. the patient's C-spine was cleared at 7:45 AM both clinically and radiographically. Triage Nursing notes: reviewed and agree With them. Vital Signs: reviewed and remarkable for hypertension Additional History obtained from: patient's sisters who are her caregivers Chronic Medical/Social Conditions affecting care: Parkinson's disease with frequent falls Differential Diagnosis: rib fractures, intra-abdominal trauma, C-spine injury, closed head injury, skull fracture, intracranial trauma Diagnostics, independently interpreted by me: ECG: normal sinus rhythm at a rate of [address] segment elevation or signs of ischemia. There is no ectopy. Cardiac Monitoring: Normal sinus rhythm at a rate of 86 Imaging studies: CT scan of the brain: As per [facility] CT scan of the cervical spine: As per [facility] CT scan of the chest: As per [facility] CT scan of the abdomen/pelvis: As per [facility] Portable chest x-ray: No acute evidence of trauma or pulmonary infiltrates as per my independent interpretation. HPI: 69 year old Female arrives for evaluation of Fall. patient with a history of Parkinson's disease who suffered a fall 2 days ago where she struck the right flank, midline low back, and right buttocks. She did not seek care at that time. She woke up this morning at 3:45 AM and suffered another fall where she struck the back of her head and complains of neck pain. she did not lose consciousness. PAST MEDICAL HISTORY: See Below, PAST SURGICAL HISTORY: See Below, SOCIAL HISTORY: See Below, HOME MEDICATIONS: See list ALLERGIES: See list VITALS: See Below PHYSICAL EXAMINATION: Primary Survey Airway: Intact Breathing: Normal, breath sounds equal bilaterally Circulation: Skin warm, distal pulses 2+, capillary refill less than 2 seconds Disability Pupils: Equal and reactive to light, 2mm, brisk GCS: 15, E = 6 V=5 M= 4 Motor Function: Moves all extremities. Sensory: No deficits Secondary Survey GEN: Well developed and well-nourished with tremors from her Parkinson's HEAD: Normal cephalic atraumatic EYES: Pupils round reactive to light, conjunctiva clear, extraocular movements intact, no raccoons eyes ENT: No fluid in external acoustic canals, no hemotympanum, no perez's sign, nares patent, oropharynx clear NECK: No JVD, midline trachea, no cervical spine tenderness, C-collar in place HEART: Regular rate and rhythm LUNGS: Clear to auscultation bilaterally. CHEST: Chest wall -moderate tenderness to palpation over the right inferior anterior and lateral chest wall. ABD: No Evans-Solorzano's or Wendell's sign, soft, non-tender, no rebound or guarding, PELVIS: Stable to rock BACK: No step offs or deformities, T-L spine non tender. The patient does have right CVA tenderness. EXT: 2+ global pulses, moving all extremities well, +5/5 muscle strength globally NEURO: CNII-XII grossly intact, no sensory deficits Emergency department treatment: youth nutritional monitor, IV normal saline, IV fentanyl, IV Zofran, rib belt placement Emergency Department course: The patient was evaluated in room B-4. A complete history and physical was performed with the sisters at the bedside. Laboratory studies were drawn as above. An order was placed for continuous cardiac monitoring. The patient was in a normal sinus rhythm at a rate of 86. Twelve- lead EKG was obtained as described above. Portable chest x-ray was performed which was unremarkable. Patient was having moderate discomfort in her right lower rib cage. She was given a dose of IV fentanyl and IV Zofran. She went for CT scan of her brain, cervical spine, chest, abdomen/pelvis. Upon returning from radiology, I reviewed the results of the labs and CTs with the patient and her sisters. A rib belt was placed for comfort. Nursing staff attempted to mobilize the patient/ambulate the patient and she had such extreme weakness it was not safe for her to be discharged. [facility] care. Past Med/Surg History Problem List (Updated 05/08/25 @ 10:51 by Tiffany Arciniega PA-C) Orthostatic hypotension Oropharyngeal dysphagia Recurrent falls Multiple rib fractures Ground-level fall Closed head injury (Acute) Rib fractures (Acute) Acute respiratory failure with hypoxia Fever Hypernatremia Encephalopathy acute Delirium due to another medical condition, acute, hyperactive Ambulatory dysfunction Unable to ambulate (Acute) Falls frequently (Acute) Weakness (Acute) Medical History SIADH (syndrome of inappropriate ADH production) Depression Sinus tachycardia Elevated BP without diagnosis of hypertension GERD (gastroesophageal reflux disease) Parkinson's disease Acute hyponatremia Weight loss Urinary symptom or sign Hyponatremia Surgical History History of esophagogastroduodenoscopy History of colonoscopy Family History Other Diabetes Heart disease Social History Smoking Status: Never smoker Second Hand Exposure: No; Do You Dip or Chew Tobacco: No; Tobacco Cessation Education Requested by Patient: No Hx Alcohol Use: Yes Alcohol type: hard liquor Hx Substance Use: No Preferred Language: Bulgarian Communication Ability: Effective Flight Attendant/Inflight Manager Required: No Beliefs That Will Affect Care: None marital status: / Current Living Situation: Alone current occupational status: retired Other Information That Helps Us Care for You: No Feels Safe at Home: Yes Safety Concerns: Feels Safe At This Time Assistive Devices: Cane, Glasses and Walker Allergies Allergies Allergy/AdvReac Type Severity Reaction Status Date / Time No Known Allergies Allergy Verified 03/05/25 15:41 Home Meds Home Medications Medication Instructions Recorded Confirmed Lactobacillus acidophilus 10 10,000 mmu cells PO DAILY 02/18/22 05/08/25 billion cell capsule (Probiotic) amantadine HCl 100 mg capsule 100 mg PO BID 02/18/22 05/08/25 magnesium 250 mg tablet 250 mg PO Q OTHER DAY 02/18/22 05/08/25 multivitamin with minerals 1 tab PO DAILY 02/18/22 05/08/25 omeprazole 40 mg capsule,delayed 40 mg PO DAILYBB 02/18/22 05/08/25 release acetaminophen 500 mg tablet 1,000 mg PO TID PRN Pain 03/05/25 05/08/25 bupropion HCl 300 mg 24 hr tablet, 300 mg PO QAM 03/05/25 05/08/25 extended release carbidopa ER 36.25 mg-levodopa 145 2 cap PO TID 03/05/25 05/08/25 mg capsule,extended release (Rytary) carbidopa ER 36.25 mg-levodopa 145 3 cap PO HS 03/05/25 05/08/25 mg capsule,extended release (Rytary) docusate sodium 100 mg capsule 100 mg PO DAILY 03/05/25 05/08/25 (Colace) fludrocortisone 0.1 mg tablet 0.1 mg PO DAILY 03/05/25 05/08/25 food supplemt, lactose-reduced 1 ea PO DAILY 03/05/25 05/08/25 (Ensure oral liquid) triamcinolone acetonide 0.1 % 1 applic dental BID Apply to 03/05/25 05/08/25 dental paste inside of cheek pimavanserin 34 mg capsule 34 mg PO HS 03/14/25 05/08/25 (Nuplazid) melatonin 3 mg tablet 6 mg PO HS 05/08/25 05/08/25 prednisolone acetate 1 % eye 1 drp OPB TID 05/08/25 05/08/25 drops,suspension Results & Data (ED) Vital Signs Vital Signs - 24 hr 05/08/25 04:55 05/08/25 04:55 05/08/25 04:59 Temperature 36.6 C Temperature Source Oral Pulse Rate 88 80 Pulse Rate [Apical] 78 Pulse Rhythm [Apical] Pulse Strength [Apical] Respiratory Rate 16 17 Respiratory Effort / Characteristics Non-Labored Spontaneous Non-Labored Spontaneous Respiratory Depth Normal Normal Respiratory Pattern Regular Regular Blood Pressure 165/96 H Blood Pressure [Right Arm] 165/96 H Blood Pressure Mean 119 Blood Pressure Mean [Right Arm] 119 Pulse Oximetry 100 98 Oxygen Delivery Method Room Air Room Air Sepsis Recent Fever Within 48 Hours No Sepsis New/Unexplained Change in Mental Status No Sepsis Action Taken by Nursing No Action Required 05/08/25 05:46 05/08/25 06:00 05/08/25 06:30 Temperature Temperature Source Pulse Rate Pulse Rate [Apical] 83 86 81 Pulse Rhythm [Apical] Regular Pulse Strength [Apical] Respiratory Rate 17 18 16 Respiratory Effort / Characteristics Non-Labored Spontaneous Non-Labored Spontaneous Non-Labored Spontaneous Respiratory Depth Normal Normal Normal Respiratory Pattern Regular Regular Regular Blood Pressure Blood Pressure [Right Arm] 165/119 H 125/102 H 164/90 H Blood Pressure Mean Blood Pressure Mean [Right Arm] 134 109 114 Pulse Oximetry 98 98 98 Oxygen Delivery Method Room Air Room Air Room Air Sepsis Recent Fever Within 48 Hours Sepsis New/Unexplained Change in Mental Status Sepsis Action Taken by Nursing 05/08/25 07:00 05/08/25 08:00 Temperature Temperature Source Pulse Rate Pulse Rate [Apical] 86 87 Pulse Rhythm [Apical] Regular Pulse Strength [Apical] Normal Respiratory Rate 18 16 Respiratory Effort / Characteristics Non-Labored Spontaneous Non-Labored Spontaneous Respiratory Depth Normal Normal Respiratory Pattern Regular Blood Pressure Blood Pressure [Right Arm] 146/89 H 163/88 H Blood Pressure Mean Blood Pressure Mean [Right Arm] 108 113 Pulse Oximetry 98 93 Oxygen Delivery Method Room Air Room Air Sepsis Recent Fever Within 48 Hours Sepsis New/Unexplained Change in Mental Status Sepsis Action Taken by Nursing Laboratory Data 05/08/25 05:00 05/08/25 05:00 Lab Results 05/08/25 05/08/25 Range/Units 05:00 08:20 WBC 7.34 (4.8-10.8) K/ul RBC 4.06 L (4.20-5.40) M/uL Hgb 12.4 (12.0-16.0) g/dl Hct 37.5 (37.0-47.0) % MCV 92.4 (80.0-100.0) fL MCH 30.5 (25.0-34.0) pg MCHC 33.1 (32.0-36.0) g/dL RDW Std Deviation 51.2 H (36.4-46.3) fL RDW Coeff of Jovani 14.9 H (11.5-14.5) % Plt Count 365 (130-400) K/uL MPV 9.3 L (9.4-12.4) fL Immature Gran % (Auto) 0.3 % Neut % (Auto) 64.7 % Lymph % (Auto) 20.3 % Bosque % (Auto) 9.9 % Eos % (Auto) 4.0 % Baso % (Auto) 0.8 % Neut # (Auto) 4.75 (1.40-6.50) K/uL Lymph # (Auto) 1.49 (1.20-3.40) K/uL Bosque # (Auto) 0.73 H (0.11-0.59) K/uL Eos # (Auto) 0.29 (0.00-0.50) K/uL Baso # (Auto) 0.06 (0.00-0.20) K/uL Immature Gran # (Auto) 0.02 (0.01-0.20) K/uL PT 10.3 (9.0-12.0) Seconds INR 1.0 (0.9-1.1) APTT 27 (21-31) Seconds PTT Ratio 1.0 Sodium 138 (136-145) mmol/L Potassium 3.9 (3.5-5.1) mmol/L Chloride 104 (98-107) mmol/L Carbon Dioxide 25 (21-32) mmol/L Anion Gap 9 (3-11) BUN 12 (6-23) mg/dl Creatinine 0.50 L (0.6-1.2) mg/dl Est Cr Clr Drug Dosing 67.6 ml/min eGFR 100.84 BUN/Creatinine Ratio 24.0 H (10-20) Glucose 96 (70-99(Fasting)) mg/dl Calcium 9.7 (8.6-10.3) mg/dl Total Bilirubin 0.7 (0.2-1.0) mg/dl AST 11 L (13-39) U/L ALT 3 L (7-52) U/L Alkaline Phosphatase 73 (34-104) U/L Total Protein 7.4 (6.0-8.3) gm/dl Albumin 4.4 (3.4-5.0) gm/dl Globulin 3.0 (2.5-4.0) gm/dl Albumin/Globulin Ratio 1.5 (0.9-2) Urine Color Yellow Urine Appearance Clear (Clear) Urine pH 7.0 (4.5-7.5) Ur Specific Manning > 1.045 H (1.000-1.030) Urine Protein Negative (Negative) Urine Glucose (UA) Negative (Negative) Urine Ketones Trace H (Negative) Urine Blood Negative (Negative) Urine Nitrite Negative (Negative) Urine Bilirubin Negative (Negative) Urine Urobilinogen Negative (Negative) Ur Leukocyte Esterase Negative (Negative) Urine Comment Administered Medications Acetaminophen (Acetaminophen 500 Mg Tab) 1,000 mg PO Q8H [facility] Stop: 06/07/25 10:02 Last Admin: 05/08/25 10:57 Dose: 1,000 mg Documented By: DONNA Amantadine HCl (Amantadine Hcl 100 Mg Capsule) 100 mg PO BID@0500,1230 [facility] Stop: 06/07/25 12:29 Last Admin: 05/08/25 12:13 Dose: 100 mg Documented By: DONNA Bupropion HCl (Bupropion Xl 300 Mg Tabcr) 300 mg PO QAM [facility] Stop: 06/07/25 10:14 Last Admin: 05/08/25 10:53 Dose: 300 mg Documented By: DONNA Carbidopa/Levodopa (Carbidopa/Levodopa 36.25 Mg/145 Mg Cap) 2 ea PO TID@0500,1000,1500 [facility] Stop: 06/07/25 10:44 Last Admin: 05/08/25 15:02 Dose: 2 ea Documented By: Admin: 05/08/25 10:54 Dose: 2 ea Documented By: DONNA Docusate Sodium (Docusate Sodium 100 Mg Cap) 100 mg PO DAILY [facility] Stop: 06/07/25 09:44 Last Admin: 05/08/25 10:57 Dose: 100 mg Documented By: DONNA Fludrocortisone Acetate (Fludrocortisone Acetate 0.1 Mg Tab) 0.1 mg PO DAILY JW Stop: 06/07/25 09:44 Last Admin: 05/08/25 10:53 Dose: 0.1 mg Documented By: DONNA Lactobacillus Acidophilus (Advanced Probiotic 625 Mg Capsule) 1,250 mg PO DAILY JW Stop: 06/07/25 10:14 Last Admin: 05/08/25 10:53 Dose: 1,250 mg Documented By: DONNA Lidocaine (Lidocaine 5% 1 Patch) 1 patch TD QAM JW Stop: 06/07/25 10:14 Last Admin: 05/08/25 10:53 Dose: 1 patch Documented By: DONNA Multivitamins (Multivitamin Tab) 1 tab PO DAILY JW Stop: 06/07/25 10:14 Last Admin: 05/08/25 10:53 Dose: 1 tab Documented By: DONNA Polyethylene Glycol (Polyethylene (Miralax) 17 Gm Pack) 17 gm PO DAILY JW Stop: 06/07/25 10:59 Last Admin: 05/08/25 12:13 Dose: 17 gm Documented By: DONNA Prednisolone Acetate (Prednisolone Acetate 1% Op Susp 5 Ml Btl) 1 drops OPB TID JW Stop: 06/07/25 13:59 Last Admin: 05/08/25 13:43 Dose: 1 drops Documented By: DONNA Discontinued Medications Bisacodyl (Bisacodyl 10 Mg Supp) 10 mg DC NOW STA Stop: 05/08/25 10:55 Last Admin: 05/08/25 12:13 Dose: 10 mg Documented By: DONNA Fentanyl Citrate (Fentanyl Citrate Pf 100 Mcg/2 Ml Vial) 50 mcg IV NOW STA Stop: 05/08/25 05:59 Last Admin: 05/08/25 06:07 Dose: 50 mcg Documented By: NANO Sodium Chloride (Nss) 500 mls @ 999 mls/hr IV .Q31M ONE Stop: 05/08/25 06:44 Last Infusion: 05/08/25 07:42 Dose: Infused Documented By: Admin: 05/08/25 06:49 Dose: 999 mls/hr Documented By: NANO Ioversol (Optiray 320 100ml) 100 ml IV ONCE ONE Stop: 05/08/25 06:30 Last Admin: 05/08/25 06:30 Dose: 93 ml Documented By: AHMET Ondansetron HCl (Ondansetron Inj 2 Mg/Ml 2 Ml Vial) 4 mg IV NOW STA Stop: 05/08/25 05:59 Last Admin: 05/08/25 06:07 Dose: 4 mg Documented By: LENORAS Imaging Data Radiologist's Impression: Cervical Spine CT 05/08/25 05:14 EXAM: CT cervical spine wo con CLINICAL HISTORY: Neck trauma TECHNIQUE: Computed tomography of the cervical spine was performed without intravenous contrast. Contiguous axial images were obtained from the skull base to T2, with sagittal and coronal reformatted images reconstructed from the axial data. The CT scan was performed according to ALARA (as low as reasonably achievable). COMPARISON: 10:55:57 BI REPORT DEVELOPER. FINDINGS: There is loss of cervical lordosis, which suggests the possibility of muscle spasm or positional change. There are degenerative changes involving the cervical spine in the form of multilevel marginal osteophytes, disc space reduction, and facetal arthrosis. The cervical vertebral bodies are normal in height and alignment, with no evidence of fracture or subluxation. The lateral masses of C1 are symmetrical, and the dens is intact. The prevertebral soft tissues are not widened. The remaining suprahyoid and infrahyoid soft tissues in the neck are unremarkable. Posterior uncovertebral arthrosis is noted at the C4-C5 to C6-C7 levels, which indents the ventral thecal sac and causes bilateral neuroforaminal narrowing. The thyroid gland appears unremarkable. IMPRESSION: 1. No acute fracture or subluxation in the cervical spine. 2. Cervical spondylosis, stable. No other new interval abnormality since the prior study. Electronically signed by Duarte Antonio 05-08-2025 06:[address] 05/08/25 05:14 EXAM: CT head/brain wo con CLINICAL HISTORY: Head trauma moderate-severe TECHNIQUE: Multiple axial images were obtained from the skull base to the vertex without contrast. The CT scan was performed according to ALARA (as low as reasonably achievable). COMPARISON: 03/05/2025 10:55:57 BI REPORT DEVELOPER . FINDINGS: There is cerebral atrophy. No evidence of space-occupying lesion, hemorrhage, edema, mass effect, midline shift, extra-axial collection, or hydrocephalus is noted. The basal cisterns are symmetric and normal in size and configuration. There are scattered periventricular hypodensities as can be seen with chronic microvascular ischemic changes. The contreras-white matter differentiation is preserved. The visualized paranasal sinuses and mastoid air cells are well aerated. Orbital contents are within normal limits. Bony structures are intact. IMPRESSION: 1. No evidence of acute intracranial abnormality is demonstrated. 2. Chronic microvascular ischemic changes, stable. 3. Cerebral atrophy, stable. Electronically signed by Duarte Antonio 05-08-2025 06:06 AM Chest X-Ray 05/08/25 05:15 EXAM: XR chest 1V portable CLINICAL HISTORY: Trauma TECHNIQUE: An X-ray image of the chest was obtained in the AP portable projection. COMPARISON: 03/07/2025 FINDINGS: Pulmonary Parenchyma: The lungs are clear bilaterally. There is no evidence of consolidation, collapse, or focal opacities. No pulmonary nodules are identified. There is no evidence of pleural effusion or pleural thickening. Heart and Mediastinum: The heart size and shape are normal. There is no mediastinal widening or masses. No hilar or mediastinal lymphadenopathy is identified. Bony Thorax: The bony thorax appears intact without fractures or deformities. Soft Tissues: The soft tissues overlying the chest wall are unremarkable. IMPRESSION: 1. The bony chest is unremarkable. No acute cardiopulmonary abnormalities are identified. 2. No changes compared to the prior X-ray dated 03/07/2025. Electronically signed by Mick Angel 05-08-2025 06:17 AM Abdomen/Pelvis CT 05/08/25 05:24 EXAM: CT abd pelvis IV con only CLINICAL HISTORY: fall TECHNIQUE: Contiguous axial images were obtained from the level of the diaphragm to the pubic symphysis with intravenous contrast. Coronal and sagittal reconstructions were likewise performed and indicated to increase the sensitivity for detecting clinically relevant pathology. If IV contrast material had not been administered, the likelihood of detecting abnormalities relevant to the patient's condition would have been substantially decreased. CT scan was performed according to ALARA (as low as reasonably achievable). COMPARISON: 17:06:04 BI REPORT DEVELOPER. FINDINGS: Left 9th and 10th ribs and right 11th rib acute fracture. The liver is normal in size and attenuation. No focal liver lesions are seen. There is no intra or extrahepatic biliary ductal dilatation. Hepatic vasculature is patent. The gallbladder is present. The spleen, pancreas, and adrenal glands are unremarkable. The kidneys are normal in size and attenuation. There is no hydronephrosis or perinephric fat stranding. No renal calculi or renal masses are identified. The ureters are normal in caliber and no ureteral calculi are seen. The bladder is normal in contour. Renal cysts seen. Pelvic viscera are unremarkable. No focal or diffuse bowel wall thickening or evidence of bowel obstruction is identified. Fecally loaded colon. No imaging evidence of appendicitis. Abdominal and pelvic vasculature is patent. No adenopathy or fluid collections are seen. No aggressive appearing osseous lesions are identified. IMPRESSION: Left 9th and 10th ribs and right 11th rib acute fracture. Fecally loaded colon. Electronically signed by Duarte Antonio 05-08-2025 07:[address] 05/08/25 05:24 EXAM: CT chest diagnostic w con CLINICAL HISTORY: fall TECHNIQUE: Contiguous axial images were obtained from the neck base through the upper abdomen following intravenous administration of contrast material. If IV contrast material had not been administered, the likelihood of detecting abnormalities relevant to the patient's condition would have been substantially decreased. In addition, sagittal and coronal reconstructions were performed. CT scan was performed according to ALARA (as low as reasonably achievable). COMPARISON: None. FINDINGS: Fracture of left 9th and 10 ribs and right 11th rib - acute. Bilateral pleural thickening with left basal fibroatelectatcic bands. Right minimal pleural effusion. The lungs are clear, with no focal areas of consolidation. No pulmonary nodules are seen. The central airways are patent. No pneumothorax is seen. No axillary, hilar, or mediastinal adenopathy is identified. The visualized thyroid is unremarkable. The heart, aorta, and pulmonary arteries are of normal size and configuration. No pericardial effusion is identified. Imaged portions of the upper abdomen are unremarkable. No aggressive appearing osseous lesions are identified. IMPRESSION: Fracture of left 9th and 10 ribs and right 11th rib - acute. Right minimal pleural effusion. Bilateral pleural thickening with left basal fibroatelectatcic bands. Electronically signed by Duarte Antonio 05-08-2025 07:20 AM Discharge Plan Visit Data Chief Complaint: Trauma Stated Complaint: GLF, HEMATOMA TO POSTERIOR HEAD, BACK AND NECK [facility] ED Provider: Lizeth Beltre Discharge Problem: Falls frequently, Rib fractures, Closed head injury Patient Disposition: Admitted As Inpatient Condition: Fair Discharge Instructions Interventions: ED Discharge Assessment Last Done: 05/08/25 10:03
[2025-05-08 06:25] LABS: INR 1.0 (0.9-1.1); Partial Thromboplastin Time 27 Seconds (21-31); Prothrombin Time 10.3 Seconds (9.0-12.0)
[2025-05-08] MEDS: OPTIRAY 320 100ml IV ONE (06:30)
[2025-05-08] MEDS: SODIUM CHLORIDE 0.9% 500 ML IV ONE (06:49)
--- NOTE | 2025-05-08 07:20 | CT Scan Report ---
EXAM: CT chest diagnostic w con CLINICAL HISTORY: fall TECHNIQUE: Contiguous axial images were obtained from the neck base through the upper abdomen following intravenous administration of contrast material. If IV contrast material had not been administered, the likelihood of detecting abnormalities relevant to the patient's condition would have been substantially decreased. In addition, sagittal and coronal reconstructions were performed. CT scan was performed according to ALARA (as low as reasonably achievable). COMPARISON: None. FINDINGS: Fracture of left 9th and 10 ribs and right 11th rib - acute. Bilateral pleural thickening with left basal fibroatelectatcic bands. Right minimal pleural effusion. The lungs are clear, with no focal areas of consolidation. No pulmonary nodules are seen. The central airways are patent. No pneumothorax is seen. No axillary, hilar, or mediastinal adenopathy is identified. The visualized thyroid is unremarkable. The heart, aorta, and pulmonary arteries are of normal size and configuration. No pericardial effusion is identified. Imaged portions of the upper abdomen are unremarkable. No aggressive appearing osseous lesions are identified. IMPRESSION: Fracture of left 9th and 10 ribs and right 11th rib - acute. Right minimal pleural effusion. Bilateral pleural thickening with left basal fibroatelectatcic bands. Electronically signed by Duarte Antonio 05-08-2025 07:20 AM
--- NOTE | 2025-05-08 07:22 | CT Scan Report ---
EXAM: CT abd pelvis IV con only CLINICAL HISTORY: fall TECHNIQUE: Contiguous axial images were obtained from the level of the diaphragm to the pubic symphysis with intravenous contrast. Coronal and sagittal reconstructions were likewise performed and indicated to increase the sensitivity for detecting clinically relevant pathology. If IV contrast material had not been administered, the likelihood of detecting abnormalities relevant to the patient's condition would have been substantially decreased. CT scan was performed according to ALARA (as low as reasonably achievable). COMPARISON: 17:06:04 SNAGGER. FINDINGS: Left 9th and 10th ribs and right 11th rib acute fracture. The liver is normal in size and attenuation. No focal liver lesions are seen. There is no intra or extrahepatic biliary ductal dilatation. Hepatic vasculature is patent. The gallbladder is present. The spleen, pancreas, and adrenal glands are unremarkable. The kidneys are normal in size and attenuation. There is no hydronephrosis or perinephric fat stranding. No renal calculi or renal masses are identified. The ureters are normal in caliber and no ureteral calculi are seen. The bladder is normal in contour. Renal cysts seen. Pelvic viscera are unremarkable. No focal or diffuse bowel wall thickening or evidence of bowel obstruction is identified. Fecally loaded colon. No imaging evidence of appendicitis. Abdominal and pelvic vasculature is patent. No adenopathy or fluid collections are seen. No aggressive appearing osseous lesions are identified. IMPRESSION: Left 9th and 10th ribs and right 11th rib acute fracture. Fecally loaded colon. Electronically signed by Duarte Antonio 05-08-2025 07:22 AM
[2025-05-08] MEDS ORDERED: NALOXONE HCL 0.4 MG/1 ML VIAL/CARP IV PRN (08:27)
[2025-05-08] MEDS ORDERED: MoRPHine SULFATE 4 MG/ML 1 ML CARP\\VIAL IV PRN (08:27)
--- NOTE | 2025-05-08 08:31 | History & Physical Report ---
<Statement entered by Adrian Rasheed DO - 05/08/25 12:50> Patient seen and examined at bedside Frequent falls, secondary to longstanding severe parkinson's disease Hallucinations are chronic and likely secondary to dopamine agonists, not some underlying psych disorder UA clean, no UTI Pain control, IS for rib fractures PT/OT. D/w sisters at bedside, will likely need placement I spent a total of 20 minutes coordinating, documenting, and providing care for this patient excluding time spent in the performance of separately billed services. This included personally reviewing all current laboratories and imaging studies, medical reconciliation, outpatient chart review and discussion with specialists Date of Service May 08, 2025 Assessment & Plan (1) Ground-level fall: (2) Multiple rib fractures: (3) Ambulatory dysfunction: (4) Recurrent falls: (5) Parkinson's disease: (6) Oropharyngeal dysphagia: (7) Orthostatic hypotension: Plan Patient is a 69-year-old female with past medical history significant for hypothyroidism, SIADH, HTN, orthostatic hypotension, chronic diarrhea, protein- calorie malnutrition, GERD, RLS, Parkinson's disease with dyskinesia and fluctuating manifestations, GREGORIO, depression and frequent falls who presented to the ED via EMS s/p GLF. 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 Cervical spine CT, head CT and CXR w/o acute findings. CTAP and chest CT noting acute L 9th+10th rib fractures, R 11th rib fracture. Labs personally reviewed and grossly unremarkable. EKG benign. Recent confinement under our service last month 2/2 weakness and ambulatory dysfunction. -Was discharged to [facility]. Returned home on 04/05/25. -Pt's sister, Viola, has been staying with her since being home from SNF. -Since being home, pt has sustained approximately 4 falls. -Reportedly has [facility] HH services, including nursing and OT. -Had been using walker but was advised by PCP last week to use wheelchair only. Has been noncompliant with this. Per pt's family, she has sustained ~40 falls since December of this year. On Rytary, amantadine, Wellbutrin and Nuplazid. Follows with [facility], Dr. Tomasz Dean. Nuplazid was recently started last month. -Has been experiencing visual and auditory hallucinations for past several months. -Hallucinations noted to be more frequent since starting Nuplazid >> d/w Dr. Dean who said to continue Nuplazid. -Nuplazid not likely contributing to hallucinations >> targets serotonin receptors, no appreciable affinity for dopamine receptors. -Infectious workup so far negative including UA. Head CT also negative as per above. -Suspect hallucinations related to amantadine and Rytary as this is a known side effect of both medications 2/2 increasing dopamine levels. -Would defer to primary neurologist for consideration of any medication adjustments. For now continue current medication doses. Continue rib fracture management with PRN analgesia, topical lidocaine patch application and pulmonary hygiene measures. Fall precautions, PT/OT evals. Likely patient to require SNF placement given persistence of recurrent falls, ambulatory dysfunction. Mild-moderate oropharyngeal dysphagia Previously evaluated by [employer] last admission. VFSS c/w mild pharyngeal dysphagia with impact on swallow efficiency w/o impacting swallowing safety, no aspiration. Recommended easy to chew IDDSI 7 with thin liquids. Aspiration and reflux precautions, mouth care. Requires assistance with feeds in light of advancing Parkinson's disease. Orthostatic hypotension ISO progressive Parkinson's disease Follows with Dr. Seble jack. Ongoing and significantly symptomatic hypotension for which she is essentially dependent on fludrocortisone. Continue fludrocortisone uninterrupted. Allow for permissive HTN while supine and sitting >> as previously recommended by Dr. Pruett. Fecally loaded colon Noted on CTAP. Pt reports chronic constipation issues, last BM yesterday which was firm and pebble-shaped. Takes daily stool softener. Advised for scheduled bowel regimen and enema trial. Would like to trial Dulcolax suppository first which is ordered. Could then trial Fleet enema if suppository ineffective which pt was agreeable with. GERD Continue PPI. DVT Prophylaxis: SCDs/TEDs for now given recurrent falls Code Status: FULL CODE PCP: Concepción Cline PA-C Disposition: Admit to med/surg Patient seen in collaboration with Dr. Rasheed. Please see addendum. I spent a total of 75 minutes coordinating, documenting, and providing care for this patient excluding time spent in the performance of separately billed services or time spent by another provider/QHP. This included personally reviewing all current laboratories and imaging studies, medical reconciliation, outpatient chart review and discussion with specialists. This chart was completed in part utilizing Speech Voice Recognition Software. Grammatical errors, random word insertions, pronoun errors, and incomplete sentences are an occasional consequence of this system due to software limit ations, ambient noise, and hardware issues. Any formal questions or concerns about the content, text, or information contained within the body of this dictation should be directly addressed to the provider for clarification. History of Present Illness Chief Complaint: CORREIA, low back pain and R-sided rib pain s/p GLF Primary Care Provider: Concepción Cline PA-C Patient is a 69-year-old female with past medical history significant for hypot hyroidism, SIADH, HTN, orthostatic hypotension, chronic diarrhea, protein- calorie malnutrition, GERD, RLS, Parkinson's disease with dyskinesia and fluctuating manifestations, GREGORIO, depression and frequent falls who presented to the ED via EMS s/p GLF. History obtained from the patient, patient's sisters at bedside, discussion with ED provider and associated chart review. Recent confinement under our service 03/05/25-03/14/25 due to weakness and ambulatory dysfunction in the setting of longstanding Parkinson's disease with motor fluctuations. Hospitalization c/b development of acute metabolic enc ephalopathy with fever. Negative infectious workup including LP, chest CTA and brain MRI. Was discharged to SNF, [facility]. Returned home from [facility] on 04/05/25. Her sister, Viola, has been staying with her since being home from SNF. Sustained a GLF this past Tuesday while getting up out of bed and landed on her left side, no reported head strike or LOC. Her sisters, Viola and Eliane, were able to get her up off of the floor. No cuts or abrasions were sustained however she had been complaining of some left-sided rib pain. Then this morning she sustained another GLF while ambulati ng to the restroom with her walker. Patient mentions her socks caused her to slip on the hardwood floor and she fell backwards, primarily on her right side with confirmed head strike but no LOC. Her sisters attempted to get her up off of the floor but were unable as she was complaining of significant rib pain with any sort of movement and upward lifting momentum. EMS was subsequently called. Patient has had a significant decline in her ambulatory function over the course of the past several months. Reportedly patient has experienced approximately 40 falls since December of this year. She was ambulating with a walker at [facility] but since being home she has sustained at least 4 falls whilst using the walker. Reportedly patient has home health services provided through [facility]. It was advised earlier this month that the patient should be utilizing a wheelchair to move within her home instead of a walker given her recurrent falls. Patient has not been fully compliant with this. Patient has also been experiencing worsening visual hallucinations over the past several months. Was started on Nuplazid approximately 1 month ago by her neurologist, Dr. Dean, of [facility]. Her sisters have noticed more frequent hallucinations since she started taking this medication. However, they were advised to continue this medication as it was deemed not likely to be the cause. Her sisters report that her vision has been slowly worsening due to bilateral glaucoma. Was started on corticosteroid eye drops recently for this. Patient was recently treated for a UTI last month with ciprofloxacin. Denies any dysuria or hematuria. Feels she may be experiencing some increased urinary frequency. No reported fevers, chills or myalgias. Possibly some increased weakness. Denies any SOB, chest pain, cough, congestion or abdominal pain. Having regular bowel movements, last one was yesterday. Appetite feels unchanged from baseline. No reported N/V/D. Rib pain improved s/p 50mcg IV fentanyl in ED. Patient reports feeling comfortable at rest. Allergies Allergy/AdvReac Type Severity Reaction Status Date / Time No Known Allergies Allergy Verified 03/05/25 15:41 Home Medications Medication Instructions Recorded Confirmed Type Lactobacillus acidophilus 10 10,000 mmu cells PO DAILY 02/18/22 05/08/25 History billion cell capsule (Probiotic) amantadine HCl 100 mg capsule 100 mg PO BID 02/18/22 05/08/25 History magnesium 250 mg tablet 250 mg PO Q OTHER DAY 02/18/22 05/08/25 History multivitamin with minerals 1 tab PO DAILY 02/18/22 05/08/25 History omeprazole 40 mg capsule,delayed 40 mg PO DAILYBB 02/18/22 05/08/25 History release acetaminophen 500 mg tablet 1,000 mg PO TID PRN Pain 03/05/25 05/08/25 History bupropion HCl 300 mg 24 hr tablet, 300 mg PO QAM 03/05/25 05/08/25 History extended release carbidopa ER 36.25 mg-levodopa 145 2 cap PO TID 03/05/25 05/08/25 History mg capsule,extended release (Rytary) carbidopa ER 36.25 mg-levodopa 145 3 cap PO HS 03/05/25 05/08/25 History mg capsule,extended release (Rytary) docusate sodium 100 mg capsule 100 mg PO DAILY 03/05/25 05/08/25 History (Colace) fludrocortisone 0.1 mg tablet 0.1 mg PO DAILY 03/05/25 05/08/25 History food supplemt, lactose-reduced 1 ea PO DAILY 03/05/25 05/08/25 History (Ensure oral liquid) triamcinolone acetonide 0.1 % 1 applic dental BID Apply to 03/05/25 05/08/25 History dental paste inside of cheek pimavanserin 34 mg capsule 34 mg PO HS 03/14/25 05/08/25 History (Nuplazid) melatonin 3 mg tablet 6 mg PO HS 05/08/25 05/08/25 History prednisolone acetate 1 % eye 1 drp OPB TID 05/08/25 05/08/25 History drops,suspension Past Med/Surg History Problem List (Updated 05/08/25 @ 10:51 by Tiffany Arciniega PA-C) Orthostatic hypotension Oropharyngeal dysphagia Recurrent falls Multiple rib fractures Ground-level fall Closed head injury (Acute) Rib fractures (Acute) Acute respiratory failure with hypoxia Fever Hypernatremia Encephalopathy acute Delirium due to another medical condition, acute, hyperactive Ambulatory dysfunction Unable to ambulate (Acute) Falls frequently (Acute) Weakness (Acute) Medical History SIADH (syndrome of inappropriate ADH production) Depression Sinus tachycardia Elevated BP without diagnosis of hypertension GERD (gastroesophageal reflux disease) Parkinson's disease Acute hyponatremia Weight loss Urinary symptom or sign Hyponatremia Surgical History History of esophagogastroduodenoscopy History of colonoscopy Family History Other Diabetes Heart disease Social History Smoking Status: Never smoker Hx Alcohol Use: Yes Alcohol type: hard liquor Hx Substance Use: No Preferred Language: Singaporean Communication Ability: Effective Tibco Developer Required: No Beliefs That Will Affect Care: None marital status: / Current Living Situation: Alone current occupational status: retired Feels Safe at Home: Yes Assistive Devices: Cane, Glasses and Walker Review of Systems Review of Systems: At least ten systems reviewed and negative, except as noted in the HPI. Physical Exam Physical Exam: General: Elderly F, NAD, laying down in bed, A&Ox3, conversing appropriately, sisters at bedside. HEENT: Normocephalic, + hematoma on posterior scalp (no open wound or cut), conjunctivae normal, oropharynx slightly dry. Respiratory: Normal respiratory effort, on RA and saturating around 98%, CTAB, no accessory muscle use. Cardiovascular: Tachycardic rate (HR 95bpm), regular rhythm, normal peripheral pulses, no BLE edema. Abdomen/GI: Active bowel sounds, soft, nontender to palpation in all quadrants. Extremities/MSK: No cyanosis or clubbing, + BUE resting tremors, actively able to move all extremities. Neurologic: No overt focal deficits, intact higher integrative functions, mood and affect are normal. Results & Data Results & Data Vital Signs (Past 12 Hours) Vital Signs Temp Pulse Pulse Resp BP BP Pulse Ox 05/08/25 08:00 87 16 163/88 H 93 05/08/25 07:00 86 18 146/89 H 98 05/08/25 06:30 81 16 164/90 H 98 05/08/25 06:00 86 18 125/102 H 98 05/08/25 05:46 83 17 165/119 H 98 05/08/25 04:59 80 05/08/25 04:55 78 17 165/96 H 98 05/08/25 04:55 36.6 C 88 16 165/96 H 100 O2 Del Method 05/08/25 08:00 Room Air 05/08/25 07:00 Room Air 05/08/25 06:30 Room Air 05/08/25 06:00 Room Air 05/08/25 05:46 Room Air 05/08/25 04:59 05/08/25 04:55 Room Air 05/08/25 04:55 Room Air Laboratory Results Short CBC 05/08/25 Range/Units 05:00 WBC 7.34 (4.8-10.8) K/ul Hgb 12.4 (12.0-16.0) g/dl Hct 37.5 (37.0-47.0) % Plt Count 365 (130-400) K/uL BMP 05/08/25 05:00 Sodium 138 Potassium 3.9 Chloride 104 Carbon Dioxide 25 BUN 12 Creatinine 0.50 L Glucose 96 Calcium 9.7 Liver Function 05/08/25 Range/Units 05:00 Total Bilirubin 0.7 (0.2-1.0) mg/dl AST 11 L (13-39) U/L ALT 3 L (7-52) U/L Alkaline Phosphatase 73 (34-104) U/L Albumin 4.4 (3.4-5.0) gm/dl Urine 05/08/25 Range/Units 08:20 Urine Color Yellow Urine Appearance Clear (Clear) Urine pH 7.0 (4.5-7.5) Ur Specific [place] > 1.045 H (1.000-1.030) Urine Protein Negative (Negative) Urine Glucose (UA) Negative (Negative) Diagnostic Findings Cervical Spine CT 05/08/25 05:14 EXAM: CT cervical spine wo con CLINICAL HISTORY: Neck trauma TECHNIQUE: Computed tomography of the cervical spine was performed without intravenous contrast. Contiguous axial images were obtained from the skull base to T2, with sagittal and coronal reformatted images reconstructed from the axial data. The CT scan was performed according to ALARA (as low as reasonably achievable). COMPARISON: 10:55:57 SALES PROMOTION DIRECTOR. FINDINGS: There is loss of cervical lordosis, which suggests the possibility of muscle spasm or positional change. There are degenerative changes involving the cervical spine in the form of multilevel marginal osteophytes, disc space reduction, and facetal arthrosis. The cervical vertebral bodies are normal in height and alignment, with no evidence of fracture or subluxation. The lateral masses of C1 are symmetrical, and the dens is intact. The prevertebral soft tissues are not widened. The remaining suprahyoid and infrahyoid soft tissues in the neck are unremarkable. Posterior uncovertebral arthrosis is noted at the C4-C5 to C6-C7 levels, which indents the ventral thecal sac and causes bilateral neuroforaminal narrowing. The thyroid gland appears unremarkable. IMPRESSION: 1. No acute fracture or subluxation in the cervical spine. 2. Cervical spondylosis, stable. No other new interval abnormality since the prior study. Electronically signed by Duarte Antonio 05-08-2025 06:[address] 05/08/25 05:14 EXAM: CT head/brain wo con CLINICAL HISTORY: Head trauma moderate-severe TECHNIQUE: Multiple axial images were obtained from the skull base to the vertex without contrast. The CT scan was performed according to ALARA (as low as reasonably achievable). COMPARISON: 03/05/2025 10:55:57 SALES PROMOTION DIRECTOR . FINDINGS: There is cerebral atrophy. No evidence of space-occupying lesion, hemorrhage, edema, mass effect, midline shift, extra-axial collection, or hydrocephalus is noted. The basal cisterns are symmetric and normal in size and configuration. There are scattered periventricular hypodensities as can be seen with chronic microvascular ischemic changes. The contreras-white matter differentiation is preserved. The visualized paranasal sinuses and mastoid air cells are well aerated. Orbital contents are within normal limits. Bony structures are intact. IMPRESSION: 1. No evidence of acute intracranial abnormality is demonstrated. 2. Chronic microvascular ischemic changes, stable. 3. Cerebral atrophy, stable. Electronically signed by Duarte Antonio 05-08-2025 06:06 AM Chest X-Ray 05/08/25 05:15 EXAM: XR chest 1V portable CLINICAL HISTORY: Trauma TECHNIQUE: An X-ray image of the chest was obtained in the AP portable projection. COMPARISON: 03/07/2025 FINDINGS: Pulmonary Parenchyma: The lungs are clear bilaterally. There is no evidence of consolidation, collapse, or focal opacities. No pulmonary nodules are identified. There is no evidence of pleural effusion or pleural thickening. Heart and Mediastinum: The heart size and shape are normal. There is no mediastinal widening or masses. No hilar or mediastinal lymphadenopathy is identified. Bony Thorax: The bony thorax appears intact without fractures or deformities. Soft Tissues: The soft tissues overlying the chest wall are unremarkable. IMPRESSION: 1. The bony chest is unremarkable. No acute cardiopulmonary abnormalities are identified. 2. No changes compared to the prior X-ray dated 03/07/2025. Electronically signed by Mick Angel 05-08-2025 06:17 AM Abdomen/Pelvis CT 05/08/25 05:24 EXAM: CT abd pelvis IV con only CLINICAL HISTORY: fall TECHNIQUE: Contiguous axial images were obtained from the level of the diaphragm to the pubic symphysis with intravenous contrast. Coronal and sagittal reconstructions were likewise performed and indicated to increase the sensitivity for detecting clinically relevant pathology. If IV contrast material had not been administered, the likelihood of detecting abnormalities relevant to the patient's condition would have been substantially decreased. CT scan was performed according to ALARA (as low as reasonably achievable). COMPARISON: 17:06:04 SALES PROMOTION DIRECTOR. FINDINGS: Left 9th and 10th ribs and right 11th rib acute fracture. The liver is normal in size and attenuation. No focal liver lesions are seen. There is no intra or extrahepatic biliary ductal dilatation. Hepatic vasculature is patent. The gallbladder is present. The spleen, pancreas, and adrenal glands are unremarkable. The kidneys are normal in size and attenuation. There is no hydronephrosis or perinephric fat stranding. No renal calculi or renal masses are identified. The ureters are normal in caliber and no ureteral calculi are seen. The bladder is normal in contour. Renal cysts seen. Pelvic viscera are unremarkable. No focal or diffuse bowel wall thickening or evidence of bowel obstruction is identified. Fecally loaded colon. No imaging evidence of appendicitis. Abdominal and pelvic vasculature is patent. No adenopathy or fluid collections are seen. No aggressive appearing osseous lesions are identified. IMPRESSION: Left 9th and 10th ribs and right 11th rib acute fracture. Fecally loaded colon. Electronically signed by Duarte Antonio 05-08-2025 07:[address] 05/08/25 05:24 EXAM: CT chest diagnostic w con CLINICAL HISTORY: fall TECHNIQUE: Contiguous axial images were obtained from the neck base through the upper abdomen following intravenous administration of contrast material. If IV contrast material had not been administered, the likelihood of detecting abnormalities relevant to the patient's condition would have been substantially decreased. In addition, sagittal and coronal reconstructions were performed. CT scan was performed according to ALARA (as low as reasonably achievable). COMPARISON: None. FINDINGS: Fracture of left 9th and 10 ribs and right 11th rib - acute. Bilateral pleural thickening with left basal fibroatelectatcic bands. Right minimal pleural effusion. The lungs are clear, with no focal areas of consolidation. No pulmonary nodules are seen. The central airways are patent. No pneumothorax is seen. No axillary, hilar, or mediastinal adenopathy is identified. The visualized thyroid is unremarkable. The heart, aorta, and pulmonary arteries are of normal size and configuration. No pericardial effusion is identified. Imaged portions of the upper abdomen are unremarkable. No aggressive appearing osseous lesions are identified. IMPRESSION: Fracture of left 9th and 10 ribs and right 11th rib - acute. Right minimal pleural effusion. Bilateral pleural thickening with left basal fibroatelectatcic bands. Electronically signed by Duarte Antonio 05-08-2025 07:20 AM Medications Administered Discontinued Medications Fentanyl Citrate (Fentanyl Citrate Pf 100 Mcg/2 Ml Vial) 50 mcg IV NOW STA Stop: 05/08/25 05:59 Last Admin: 05/08/25 06:07 Dose: 50 mcg Documented By: NANO Sodium Chloride (Nss) 500 mls @ 999 mls/hr IV .Q31M ONE Stop: 05/08/25 06:44 Last Infusion: 05/08/25 07:42 Dose: Infused Documented By: Admin: 05/08/25 06:49 Dose: 999 mls/hr Documented By: NANO Ioversol (Optiray 320 100ml) 100 ml IV ONCE ONE Stop: 05/08/25 06:30 Last Admin: 05/08/25 06:30 Dose: 93 ml Documented By: AHMET Ondansetron HCl (Ondansetron Inj 2 Mg/Ml 2 Ml Vial) 4 mg IV NOW STA Stop: 05/08/25 05:59 Last Admin: 05/08/25 06:07 Dose: 4 mg Documented By: NANO
[2025-05-08 08:33] LABS: Appearance Urine Clear (Clear); Glucose Urine UA Negative (Negative)
[2025-05-08] MEDS ORDERED: ONDANSETRON INJ 2 MG/ML 2 ML VIAL IV PRN (10:03)
[2025-05-08] MEDS ORDERED: POLYETHYLENE (MIRALAX) 17 GM PACK PO PRN (10:03)
[2025-05-08] MEDS ORDERED: MAGNESIUM HYDROXIDE SUSP 30 ML UDC PO PRN (10:03)
[2025-05-08] MEDS: ADVANCED PROBIOTIC 625 MG CAPSULE PO SCH (10:53)
[2025-05-08] MEDS: MULTIVITAMIN TAB PO SCH (10:53)
[2025-05-08] MEDS: FLUDROCORTISONE ACETATE 0.1 MG TAB PO SCH (10:53)
[2025-05-08] MEDS: LIDOCAINE 5% 1 PATCH TD SCH (10:53)
[2025-05-08] MEDS ORDERED: SOD PHOSPHATE/SOD BIPHOSPHATE ENEMA 132 ML BTL PR PRN (10:54)
[2025-05-08] MEDS: LEVODOPA PO SCH ×2 (10:54→21:44)
[2025-05-08] MEDS: CARBIDOPA PO SCH ×2 (10:54→21:44)
[2025-05-08] MEDS: ACETAMINOPHEN 500 MG TAB PO SCH (10:57)
[2025-05-08] MEDS: DOCUSATE SODIUM 100 MG CAP PO SCH (10:57)
--- NOTE | 2025-05-08 11:56 | Electrocardiogram Report ---
Test Reason : Blood Pressure : */* mmHG Vent. Rate : 77 BPM Atrial Rate : 77 BPM P-R Int : 144 ms QRS Dur : 76 ms QT Int : 380 ms P-R-T Axes : 53 -2 56 degrees QTcB Int : 430 ms Normal sinus rhythm Nonspecific T wave abnormality Abnormal ECG When compared with ECG of 09-Mar-2025 11:10, Vent. rate has decreased by 40 bpm Confirmed by Jose A Chauhan ([id number]) on 05/08/2025 11:56:32 AM Referred By: REFERRED SELF Confirmed By: Jose A Chauhan
[2025-05-08] MEDS: POLYETHYLENE (MIRALAX) 17 GM PACK PO SCH (12:13)
[2025-05-08] MEDS: AMANTADINE HCL 100 MG CAPSULE PO SCH (12:13)
[2025-05-08] MEDS: prednisoLONE acetate 1% OP SUSP 5 ML BTL OPB SCH (13:43)
[2025-05-08] MEDS ORDERED: LEVODOPA PO SCH (15:00)
[2025-05-08] MEDS ORDERED: CARBIDOPA PO SCH (15:00)
[2025-05-08] MEDS: KETOROLAC TROMETHAMINE 15 MG/ML VIAL IV PRN (16:19)
[2025-05-08] MEDS: MELATONIN 3 MG TAB PO SCH (21:43)
[2025-05-08] MEDS: REMOVE LIDODERM PATCH SCH (21:43)
[2025-05-08] MEDS: PIMAVANSERIN TARTRATE PO SCH (21:44)
[2025-05-09 06:35] LABS: Hematocrit (blood only) 31.9 % (37.0-47.0); Hemoglobin 11.1 g/dl (12.0-16.0); Mean Corpuscular Hemoglobin 31.9 pg (25.0-34.0); Mean Corpuscular Volume 91.7 fL (80.0-100.0); Platelet Count 330 K/uL (130-400); RDW Standard Deviation 48.4 fL (36.4-46.3); Red Blood Count 3.48 M/uL (4.20-5.40); White Blood Count 7.52 K/ul (4.8-10.8)
[2025-05-09 06:51] LABS: Anion Gap 11.0 (3-11); Blood Urea Nitrogen 16.0 mg/dl (6-23); Calcium 9.3 mg/dl (8.6-10.3); Carbon Dioxide 23.0 mmol/L (21-32); Chloride 105.0 mmol/L (98-107); Creatinine Clr Calc Pharmacy 67.6 ml/min; Glucose 95.0 mg/dl (70-99(Fasting)); Potassium 3.5 mmol/L (3.5-5.1); Sodium 139.0 mmol/L (136-145)
--- NOTE | 2025-05-09 10:26 | Hospitalist Progress Note ---
Date of Service May 09, 2025 Assessment & Plan (1) Ground-level fall: (2) Multiple rib fractures: (3) Ambulatory dysfunction: (4) Recurrent falls: (5) Parkinson's disease: (6) Oropharyngeal dysphagia: (7) Orthostatic hypotension: Plan Patient is a 69-year-old female with past medical history significant for hypothyroidism, SIADH, HTN, orthostatic hypotension, chronic diarrhea, protein- calorie malnutrition, GERD, RLS, Parkinson's disease with dyskinesia and fluctuating manifestations, GREGORIO, depression and frequent falls who presented to the ED via EMS s/p GLF. 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 -Cervical spine CT, head CT and CXR w/o acute findings. -CTAP and chest CT noting acute L 9th+10th rib fractures, R 11th rib fracture. Plan -Will likely need SNF placement. She lives at home with sisters who are having a difficult time caring for her -Pain control for rib fractures. Opioids DC due to agitation/delirium -Continue IS #Urinary retention -Chronic issue for her when hospitalized -Likely due to immobility and chronic constipation -Attempted to use Purewick without success -Unfortunately adrian had to be placed on admission 05/08 Plan -Continue to encourage ambulation -Bowel regimen -Flomax contraindicated due to orthostatic hypotension -Voiding trial once more ambulatory #Mild-moderate oropharyngeal dysphagia Previously evaluated by PRINTING AND STAMPING SUPERVISOR last admission. VFSS c/w mild pharyngeal dysphagia with impact on swallow efficiency w/o impacting swallowing safety, no aspiration. Recommended easy to chew IDDSI 7 with thin liquids. Aspiration and reflux precautions, mouth care. Requires assistance with feeds in light of advancing Parkinson's disease. #Orthostatic hypotension ISO progressive Parkinson's disease Follows with Dr. Seble Rome. Ongoing and significantly symptomatic hypotension for which she is essentially dependent on fludrocortisone. Continue fludrocortisone uninterrupted. Allow for permissive HTN while supine and sitting >> as previously recommended by Dr. Pruett. #Chronic constipation -Last BM 05/07 -Passing gas and eating without issue -No s/s ileus or SBO -Continue bowel regimen I spent a total of 45 minutes coordinating, documenting, and providing care for this patient excluding time spent in the performance of separately billed services. This included personally reviewing all current laboratories and imaging studies, medical reconciliation, outpatient chart review and discussion with specialists Admission and Anticipated Discharge Date Admission Date: May 08, 2025 Subjective Feeling well today. only c/o mild rib pain. she was confused overnight and agitated. calm now. Patient denies F/C, CP, palpitations, SOB, dyspnea, abd pain, N/V/D Physical Exam Physical Exam: Vitals and labs reviewed General: Frail. NAD HEENT: EOMI, PERRLA Neck: Supple Cardiac: RRR no rubs gallops or murmurs Lungs: CTA no rhonchi wheezing or rales Abd: S NT ND BS positive : adrian MSK: Full ROM. No obvious deformities Ext: No Edema cyanosis Skin: Warm, Dry Neuro: AOx3 No focal deficits. resting tremors Psych: Normal Mood Results & Data Results & Data Vital Signs (Past 12 Hours) Vital Signs Temp Pulse Resp BP Pulse Ox O2 Del Method 05/09/25 07:31 36.3 C L 92 H 16 154/79 H 97 Room Air Laboratory Results Abnormal lab results 05/09/25 Range/Units 06:10 RBC 3.48 L (4.20-5.40) M/uL Hgb 11.1 L (12.0-16.0) g/dl Hct 31.9 L (37.0-47.0) % RDW Std Deviation 48.4 H (36.4-46.3) fL MPV 9.3 L (9.4-12.4) fL Creatinine 0.50 L (0.6-1.2) mg/dl BUN/Creatinine Ratio 32.0 H (10-20)
--- NOTE | 2025-05-10 12:17 | Hospitalist Progress Note ---
Date of Service May 10, 2025 Assessment & Plan (1) Ground-level fall: (2) Multiple rib fractures: (3) Ambulatory dysfunction: (4) Recurrent falls: (5) Parkinson's disease: (6) Oropharyngeal dysphagia: (7) Orthostatic hypotension: Plan Patient is a 69-year-old female with past medical history significant for hypothyroidism, SIADH, HTN, orthostatic hypotension, chronic diarrhea, protein- calorie malnutrition, GERD, RLS, Parkinson's disease with dyskinesia and fluctuating manifestations, GREGORIO, depression and frequent falls who presented to the ED via EMS s/p GLF. #Multiple rib fractures s/p GLF #Ambulatory dysfunction -Secondary to Longstanding Parkinson's disease with motor fluctuations and recurrent falls -Sustained GLF while ambulating to restroom with walker [employer]. 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 -Cervical spine CT, head CT and CXR w/o acute findings. -CTAP and chest CT noting acute L 9th+10th rib fractures, R 11th rib fracture. Plan -Will likely need SNF placement. She lives at home with sisters who are having a difficult time caring for her -Pain control for rib fractures. Opioids DC due to agitation/delirium -Continue IS #Urinary retention -Chronic issue for her when hospitalized -Likely due to immobility and chronic constipation -Attempted to use Purewick without success -Unfortunately adrian had to be placed on admission 05/08 Plan -Continue to encourage ambulation -Bowel regimen -Flomax contraindicated due to orthostatic hypotension -Voiding trial once more ambulatory #Mild-moderate oropharyngeal dysphagia Previously evaluated by STONE SETTER last admission. VFSS c/w mild pharyngeal dysphagia with impact on swallow efficiency w/o impacting swallowing safety, no aspiration. Recommended easy to chew IDDSI 7 with thin liquids. Aspiration and reflux precautions, mouth care. Requires assistance with feeds in light of advancing Parkinson's disease. #Orthostatic hypotension ISO progressive Parkinson's disease Follows with Dr. Seble Rome. Ongoing and significantly symptomatic hypotension for which she is essentially dependent on fludrocortisone. Continue fludrocortisone uninterrupted. Allow for permissive HTN while supine and sitting >> as previously recommended by Dr. Pruett. #Chronic constipation -Last BM 05/07 -Passing gas and eating without issue -No s/s ileus or SBO -Continue bowel regimen I spent a total of 43 minutes coordinating, documenting, and providing care for this patient excluding time spent in the performance of separately billed services. This included personally reviewing all current laboratories and imaging studies, medical reconciliation, outpatient chart review and discussion with specialists Admission and Anticipated Discharge Date Admission Date: May 08, 2025 Subjective Feeling well today. only c/o mild rib pain.Patient denies F/C, CP, palpitations, SOB, dyspnea, abd pain, N/V/D Physical Exam Physical Exam: Vitals and labs reviewed General: Frail. NAD HEENT: EOMI, PERRLA Neck: Supple Cardiac: RRR no rubs gallops or murmurs Lungs: CTA no rhonchi wheezing or rales Abd: S NT ND BS positive : adrian MSK: Full ROM. No obvious deformities Ext: No Edema cyanosis Skin: Warm, Dry Neuro: AOx3 No focal deficits. resting tremors Psych: Normal Mood Results & Data Results & Data Vital Signs (Past 12 Hours) Vital Signs Temp Pulse Resp BP Pulse Ox O2 Del Method 05/10/25 08:25 Room Air 05/10/25 08:07 36.7 C 82 20 148/78 H 97 Room Air
--- NOTE | 2025-05-11 16:02 | Hospitalist Progress Note ---
<Statement entered by Jovan Watson, DO - 05/11/25 18:01> I have seen and examined the patient and have discussed the case with the advance practice provider. I have reviewed the advanced practitioner's documentation, and I agree with, and take responsibility for that plan of care. Patient had an uneventful night. Has been out of restraints now for 48 hours. No acute issues reported by nursing. Pain is controlled Continue care Continue pursue SNF placement I spent a total of 15 minutes coordinating, documenting, and providing care for this patient excluding time spent by another provider/Q. Date of Service May 11, 2025 Assessment & Plan (1) Ground-level fall: (2) Multiple rib fractures: (3) Ambulatory dysfunction: (4) Recurrent falls: (5) Parkinson's disease: (6) Oropharyngeal dysphagia: (7) Orthostatic hypotension: Plan Patient is a 69-year-old female with past medical history significant for hypothyroidism, SIADH, HTN, orthostatic hypotension, chronic diarrhea, protein- calorie malnutrition, GERD, RLS, Parkinson's disease with dyskinesia and fluctuating manifestations, GREGORIO, depression and frequent falls who presented to the ED on 05/08/2025 via EMS s/p GLF. 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 Cervical spine CT, head CT and CXR w/o acute findings. CTAP and chest CT noting acute L 9th+10th rib fractures, R 11th rib fracture. Plan: -Pain control for rib fractures. Opioids DC due to agitation/delirium -Continue IS -DC to [facility] when bed available - CM following Urinary retention Chronic issue for her when hospitalized Likely due to immobility and chronic constipation Attempted to use Purewick without success Unfortunately adrian had to be placed on admission 05/08 Continue to encourage mobility and continue bowel regimen Voiding trial at [facility] Parkinson's disease Follows with [facility], Dr. Dean Continue amantadine, carbidopa/levodopa, Nuplazid, bupropion Mild-moderate oropharyngeal dysphagia Previously evaluated by [employer]SULTANT [employer]NSH[employer] last admission Continue easy to chew IDDSI 7 with thin liquids Aspiration and reflux precautions, mouth care Orthostatic hypotension ISO progressive Parkinson's disease Follows with [facility], Dr. Pruett Continue fludrocortisone uninterrupted Chronic constipation Last BM 05/09 Continue bowel regimen GERD Continue PPI DVT Prophylaxis: TEDs/SCDs Code Status: FULL CODE PCP: Concepción Cline Disposition: DC to [facility] pending auth/bed availability Patient seen in collaboration with Dr Watson. Please see addendum. I spent a total of 50 minutes coordinating, documenting and providing care for this patient excluding time spent in the performance of separately billed services or time spent by another provider/QHP. Admission and Anticipated Discharge Date Admission Date: May 08, 2025 Subjective Patient seen up in chair Was washed up by nurse and feels fresh Reports rib pain when moving in bed Denies chest pain, SOB, abdominal pain, N/V/D Review of Systems Review of Systems: All systems reviewed & are unremarkable except as noted in HPI & below Physical Exam Physical Exam: General/Psych: frail, sitting up in chair, NAD, +visual hallucinations Head: normocephalic, atraumatic Eyes: normal inspection, PERRL, conjunctivae pink ENT: external ear and nose normal, oropharynx normal Neck: normal visual inspection, trachea midline Respiratory: normal respiratory effort, lungs clear to auscultation, no wheeze/rales/rhonchi, no accessory muscle use Cardiovascular: regular rate and rhythm, no murmur/rub/gallop Extremities: no cyanosis or clubbing, normal peripheral pulses, no BLE edema Abdomen/GI: normal bowel sounds, soft, nontender Neurologic/MSK: A+Ox2, motor strength 5/5, moves all extremities Skin: no rashes, normal color, warm and dry Results & Data Results & Data Vital Signs (Past 12 Hours) Vital Signs Temp Pulse Resp BP Pulse Ox O2 Del Method 05/11/25 15:00 36.9 C 83 18 175/81 H 98 Room Air 05/11/25 08:18 36.4 C L 83 18 145/79 H 98 Room Air 05/11/25 07:20 Room Air Medications Administered Current Inpatient Medications Acetaminophen (Acetaminophen 500 Mg Tab) 1,000 mg PO Q8H [facility] Stop: 06/07/25 10:02 Last Admin: 05/11/25 10:33 Dose: 1,000 mg Amantadine HCl (Amantadine Hcl 100 Mg Capsule) 100 mg PO BID@0500,1230 JW Stop: 06/07/25 12:29 Last Admin: 05/11/25 12:05 Dose: 100 mg Bupropion HCl (Bupropion Xl 300 Mg Tabcr) 300 mg PO QAM JW Stop: 06/07/25 10:14 Last Admin: 05/11/25 08:52 Dose: 300 mg Carbidopa/Levodopa (Carbidopa/Levodopa 36.25 Mg/145 Mg Cap) 3 ea PO HS JW Stop: 06/07/25 20:59 Last Admin: 05/10/25 21:23 Dose: 3 ea Carbidopa/Levodopa (Carbidopa/Levodopa 36.25 Mg/145 Mg Cap) 2 ea PO TID@0500,1000,1500 JW Stop: 06/07/25 10:44 Last Admin: 05/11/25 10:33 Dose: 2 ea Docusate Sodium (Docusate Sodium 100 Mg Cap) 100 mg PO DAILY JW Stop: 06/07/25 09:44 Last Admin: 05/11/25 08:51 Dose: 100 mg Fludrocortisone Acetate (Fludrocortisone Acetate 0.1 Mg Tab) 0.1 mg PO DAILY JW Stop: 06/07/25 09:44 Last Admin: 05/11/25 08:52 Dose: 0.1 mg Lactobacillus Acidophilus (Advanced Probiotic 625 Mg Capsule) 1,250 mg PO DAILY JW Stop: 06/07/25 10:14 Last Admin: 05/11/25 08:51 Dose: 1,250 mg Lidocaine (Lidocaine 5% 1 Patch) 1 patch TD QAM JW Stop: 06/07/25 10:14 Last Admin: 05/11/25 08:51 Dose: 1 patch Magnesium Hydroxide (Magnesium Hydroxide Susp 30 Ml Udc) 30 ml PO Q6H PRN PRN Reason: Constipation Stop: 06/07/25 10:02 Melatonin (Melatonin 3 Mg Tab) 6 mg PO HS JW Stop: 06/07/25 20:59 Last Admin: 05/10/25 21:27 Dose: 6 mg Miscellaneous (Remove Lidoderm Patch) 1 each N/A DAILY@2100 JW Stop: 06/07/25 20:59 Last Admin: 05/10/25 21:25 Dose: Not Given Multivitamins (Multivitamin Tab) 1 tab PO DAILY JW Stop: 06/07/25 10:14 Last Admin: 05/11/25 08:52 Dose: 1 tab Naloxone HCl (Naloxone Hcl 0.4 Mg/1 Ml Vial/Carp) 0.1 mg IV Q5M PRN PRN Reason: Oversedation/Resp Depression (Narcosis) Stop: 06/07/25 08:26 Ondansetron HCl (Ondansetron Inj 2 Mg/Ml 2 Ml Vial) 4 mg IV Q6H PRN PRN Reason: Nausea Stop: 06/07/25 10:02 Pantoprazole Sodium (Pantoprazole 40 Mg Tab) 40 mg PO DAILYBB [facility] Stop: 06/08/25 06:29 Last Admin: 05/11/25 05:49 Dose: 40 mg Pimavanserin (Pimavanserin Tartrate) 1 each PO HS JW Stop: 06/07/25 20:59 Last Admin: 05/10/25 21:24 Dose: 1 each Polyethylene Glycol (Polyethylene (Miralax) 17 Gm Pack) 17 gm PO DAILY JW Stop: 06/07/25 10:59 Last Admin: 05/11/25 08:51 Dose: 17 gm Prednisolone Acetate (Prednisolone Acetate 1% Op Susp 5 Ml Btl) 1 drops OPB TID JW Stop: 06/07/25 13:59 Last Admin: 05/11/25 08:52 Dose: 1 drops Sodium Biphosphate/Sodium Phosphate (Sod Phosphate/Sod Biphosphate Enema 132 Ml Btl) 132 ml [place] DAILY PRN PRN Reason: Constipation Stop: 06/07/25 10:53
--- NOTE | 2025-05-12 08:48 | Hospitalist Progress Note ---
<Statement entered by Jovan Watson, DO - 05/12/25 12:57> I have seen and examined the patient and have discussed the case with the advance practice provider. I have reviewed the advanced practitioner's documentation, and I agree with, and take responsibility for that plan of care. Sitting in chair, completed her breakfast. No acute issues overnight. Continue to pursue skilled placement I spent a total of 10 minutes coordinating, documenting, and providing care for this patient excluding time spent by another provider/QHP. Date of Service May 12, 2025 Assessment & Plan (1) Ground-level fall: (2) Multiple rib fractures: (3) Ambulatory dysfunction: (4) Recurrent falls: (5) Parkinson's disease: (6) Oropharyngeal dysphagia: (7) Orthostatic hypotension: Plan Patient is a 69-year-old female with past medical history significant for hypothyroidism, SIADH, HTN, orthostatic hypotension, chronic diarrhea, protein- calorie malnutrition, GERD, RLS, Parkinson's disease with dyskinesia and fluctuating manifestations, GREGORIO, depression and frequent falls who presented to the ED on 05/08/2025 via EMS s/p GLF. 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 Cervical spine CT, head CT and CXR w/o acute findings. CTAP and chest CT noting acute L 9th+10th rib fractures, R 11th rib fracture. Plan: -Scheduled tylenol for pain control -Continue incentive spirometer -DC to [facility] when bed available - following Urinary retention Chronic issue for her when hospitalized Likely due to immobility and chronic constipation Attempted to use Purewick without success Unfortunately adrian had to be placed on admission 05/08 Continue to encourage mobility and continue bowel regimen Voiding trial at [facility] Parkinson's disease Follows with [facility], Dr. 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 Pruett Continue fludrocortisone uninterrupted Chronic constipation Last BM 05/09 Continue bowel regimen GERD Continue PPI DVT Prophylaxis: TEDs/SCDs Code Status: FULL CODE PCP: Concepción Cline Disposition: DC to [facility] pending auth/bed availability Patient seen in collaboration with Dr Watson. Please see addendum. I spent a total of 45 minutes coordinating, documenting and providing care for this patient excluding time spent in the performance of separately billed services or time spent by another provider/QHP. Admission and Anticipated Discharge Date Admission Date: May 08, 2025 Subjective Patient seen up in chair Reports rib pain is improved Denies chest pain, SOB, abdominal pain, N/V/D Review of Systems Review of Systems: All systems reviewed & are unremarkable except as noted in HPI & below Physical Exam Physical Exam: General/Psych: frail, sitting up in chair, NAD, +visual and auditory hallucinations Head: normocephalic, atraumatic Eyes: normal inspection, PERRL, conjunctivae pink ENT: external ear and nose normal, oropharynx normal Neck: normal visual inspection, trachea midline Respiratory: normal respiratory effort, lungs clear to auscultation, no wheeze/rales/rhonchi, no accessory muscle use Cardiovascular: regular rate and rhythm, no murmur/rub/gallop Extremities: no cyanosis or clubbing, normal peripheral pulses, no BLE edema Abdomen/GI: normal bowel sounds, soft, nontender Neurologic/MSK: A+Ox3, motor strength 5/5, moves all extremities Skin: no rashes, normal color, warm and dry Results & Data Results & Data Vital Signs (Past 12 Hours) Vital Signs Temp Pulse Resp BP Pulse Ox O2 Del Method 05/12/25 07:19 36.6 C 87 18 161/76 H 99 Room Air 05/11/25 22:14 36.9 C 83 16 146/77 H 98 Room Air Medications Administered Current Inpatient Medications Acetaminophen (Acetaminophen 500 Mg Tab) 1,000 mg PO Q8H ON LICENSE OF [facility] Stop: 06/07/25 10:02 Last Admin: 05/12/25 10:16 Dose: 1,000 mg Amantadine HCl (Amantadine Hcl 100 Mg Capsule) 100 mg PO BID@0500,1230 ON LICENSE OF [facility] Stop: 06/07/25 12:29 Last Admin: 05/12/25 12:11 Dose: 100 mg Bupropion HCl (Bupropion Xl 300 Mg Tabcr) 300 mg PO QAM JW Stop: 06/07/25 10:14 Last Admin: 05/12/25 08:39 Dose: 300 mg Carbidopa/Levodopa (Carbidopa/Levodopa 36.25 Mg/145 Mg Cap) 3 ea PO HS JW Stop: 06/07/25 20:59 Last Admin: 05/11/25 19:30 Dose: 3 ea Carbidopa/Levodopa (Carbidopa/Levodopa 36.25 Mg/145 Mg Cap) 2 ea PO TID@0500, 1000,1500 JW Stop: 06/07/25 10:44 Last Admin: 05/12/25 10:16 Dose: 2 ea Docusate Sodium (Docusate Sodium 100 Mg Cap) 100 mg PO DAILY JW Stop: 06/07/25 09:44 Last Admin: 05/12/25 08:39 Dose: 100 mg Fludrocortisone Acetate (Fludrocortisone Acetate 0.1 Mg Tab) 0.1 mg PO DAILY JW Stop: 06/07/25 09:44 Last Admin: 05/12/25 08:39 Dose: 0.1 mg Lactobacillus Acidophilus (Advanced Probiotic 625 Mg Capsule) 1,250 mg PO DAILY JW Stop: 06/07/25 10:14 Last Admin: 05/12/25 08:40 Dose: 1,250 mg Lidocaine (Lidocaine 5% 1 Patch) 1 patch TD QAM JW Stop: 06/07/25 10:14 Last Admin: 05/12/25 08:43 Dose: 1 patch Magnesium Hydroxide (Magnesium Hydroxide Susp 30 Ml Udc) 30 ml PO Q6H PRN PRN Reason: Constipation Stop: 06/07/25 10:02 Melatonin (Melatonin 3 Mg Tab) 6 mg PO HS JW Stop: 06/07/25 20:59 Last Admin: 05/11/25 19:33 Dose: 6 mg Miscellaneous (Remove Lidoderm Patch) 1 each N/A DAILY@2100 JW Stop: 06/07/25 20:59 Last Admin: 05/11/25 19:33 Dose: 1 each Multivitamins (Multivitamin Tab) 1 tab PO DAILY JW Stop: 06/07/25 10:14 Last Admin: 05/12/25 08:44 Dose: 1 tab Naloxone HCl (Naloxone Hcl 0.4 Mg/1 Ml Vial/Carp) 0.1 mg IV Q5M PRN PRN Reason: Oversedation/Resp Depression (Narcosis) Stop: 06/07/25 08:26 Ondansetron HCl (Ondansetron Inj 2 Mg/Ml 2 Ml Vial) 4 mg IV Q6H PRN PRN Reason: Nausea Stop: 06/07/25 10:02 Pantoprazole Sodium (Pantoprazole 40 Mg Tab) 40 mg PO DAILYBB JW Stop: 06/08/25 06:29 Last Admin: 05/12/25 05:13 Dose: 40 mg Pimavanserin (Pimavanserin Tartrate) 1 each PO HS JW Stop: 06/07/25 20:59 Last Admin: 05/11/25 19:31 Dose: 1 each Polyethylene Glycol (Polyethylene (Miralax) 17 Gm Pack) 17 gm PO DAILY JW Stop: 06/07/25 10:59 Last Admin: 05/12/25 08:43 Dose: 17 gm Prednisolone Acetate (Prednisolone Acetate 1% Op Susp 5 Ml Btl) 1 drops OPB TID JW Stop: 06/07/25 13:59 Last Admin: 05/12/25 08:42 Dose: 1 drops Sodium Biphosphate/Sodium Phosphate (Sod Phosphate/Sod Biphosphate Enema 132 Ml Btl) 132 ml [place] DAILY PRN PRN Reason: Constipation Stop: 06/07/25 10:53
--- NOTE | 2025-05-13 12:50 | Hospitalist Progress Note ---
<Statement entered by Jovan Watson DO - 05/13/25 12:56> I have seen and examined the patient and have discussed the case with the advance practice provider. I have reviewed the advanced practitioner's documentation, and I agree with, and take responsibility for that plan of care. Doing well, no complaints, no acute issues overnight I spent a total of 10 minutes coordinating, documenting, and providing care for this patient excluding time spent by another provider/QHP. Date of Service May 13, 2025 Assessment & Plan (1) Ground-level fall: (2) Multiple rib fractures: (3) Ambulatory dysfunction: (4) Recurrent falls: (5) Parkinson's disease: (6) Oropharyngeal dysphagia: (7) Orthostatic hypotension: Plan Patient is a 69-year-old female with past medical history significant for hypothyroidism, SIADH, HTN, orthostatic hypotension, chronic diarrhea, protein- calorie malnutrition, GERD, RLS, Parkinson's disease with dyskinesia and fluctuating manifestations, GREGORIO, depression and frequent falls who presented to the ED on 05/08/2025 via EMS s/p GLF. Multiple rib fractures s/p GLF Ambulatory dysfunction 2/2 longstanding Parkinson's disease with motor fluctuations and recurrent falls. 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 Cervical spine CT, head CT and CXR w/o acute findings. CTAP and chest CT noting acute L 9th+10th rib fractures, R 11th rib fracture. Continue rib fracture management with PRN analgesia, topical lidocaine patch application and pulmonary hygiene measures. Pain well-controlled with scheduled Tylenol per patient. Fall precautions, PT/OT recommending SNF. Plan to DC to [facility] once bed becomes available. Parkinson's disease Follows with [facility], Dr. Dean. On Rytary, amantadine, Wellbutrin and Nuplazid. Nuplazid was recently started last month. Has been experiencing visual and auditory hallucinations for past several months >> likely 2/2 dopamine agonists. No clear evidence of infection has been identified. Hyperactive delirium Had bouts of hyperactive delirium requiring soft restraint application earlier this admission. Suspect multifactorial etiology ISO advancing Parkinson's, polypharmacy, hospital environment. Has not required soft restraints for >48hr. Displays some bouts of confusion but otherwise has been cooperative with nursing staff. Urinary retention Chronic issue for her when hospitalized, likely 2/2 immobility and chronic constipation. Attempted to use Purewick without success in ED. Mckenzie catheter had to be placed on admission >> then removed 05/10 with successful voiding trial. Continue to encourage mobility, continue bowel regimen. Mild-moderate oropharyngeal dysphagia Previously evaluated by CIRCUS ROUSTABOUT last admission. VFSS c/w mild pharyngeal dysphagia with impact on swallow efficiency w/o impacting swallowing safety, no aspiration. Recommended easy to chew IDDSI 7 with thin liquids. Aspiration and reflux precautions, mouth care. Requires assistance with feeds in light of advancing Parkinson's disease. Orthostatic hypotension ISO progressive Parkinson's disease Follows with Dr. Seble Rome. Ongoing and significantly symptomatic hypotension for which she is essentially d ependent on fludrocortisone. Continue fludrocortisone uninterrupted. Allow for permissive HTN while supine and sitting >> as previously recommended by Dr. Pruett. Chronic constipation Last BM today. Continue bowel regimen. GERD Continue PPI. DVT Prophylaxis: SCDs/TEDs only given recurrent falls Code Status: FULL CODE PCP: Concepción Cline PA-C Disposition: Stable for DC once SNF bed available Patient seen in collaboration with Dr. Watson. Please see addendum. I spent a total of 40 minutes coordinating, documenting, and providing care for this patient excluding time spent in the performance of separately billed services or time spent by another provider/QHP. This included personally reviewing all current laboratories and imaging studies, medical reconciliation, outpatient chart review and discussion with specialists. This chart was completed in part utilizing Speech Voice Recognition Software. Grammatical errors, random word insertions, pronoun errors, and incomplete sentences are an occasional consequence of this system due to software limitations, ambient noise, and hardware issues. Any formal questions or concerns about the content, text, or information contained within the body of this dictation should be directly addressed to the provider for clarification. Admission and Anticipated Discharge Date Admission Date: May 08, 2025 Subjective Patient seen and examined in room 318-1. Her sister, Viola, was present at bedside. Having some increased rib pain this morning. Denies any chest pain, SOB. Feels weak. Review of Systems Review of Systems: At least ten systems reviewed and negative, except as noted in the subjective section. Physical Exam Physical Exam: General: Elderly F, NAD, sitting up in bedside chair. A&Ox3, convers ing appropriately. Sister, Viola, at bedside. HEENT: Normocephalic, oropharynx moist. Respiratory: Normal respiratory effort, on RA, CTAB, no accessory muscle use. Cardiovascular: RRR, normal peripheral pulses, no BLE edema. Abdomen/GI: Active bowel sounds, soft, nontender to palpation in all quadrants. Extremities/MSK: No cyanosis or clubbing, + BUE resting tremors, actively able to move all extremities. Witnessed patient ambulating in the room upon my entrance. Slow and shuffling steps, using walker. Postural instability. Requiring at least 1 person assist. Difficulty turning. Freezing of gait. Slow walking speed. Neurologic: No overt focal deficits, intact higher integrative functions, mood and affect are normal. Results & Data Results & Data Vital Signs (Past 12 Hours) Vital Signs Temp Pulse Resp BP Pulse Ox Pulse Ox O2 Del Method 05/13/25 08:00 98 05/13/25 07:47 36.5 C 81 16 157/80 H 98 Room Air O2 Del Method 05/13/25 08:00 Room Air 05/13/25 07:47
--- NOTE | 2025-05-14 09:21 | Hospitalist Progress Note ---
<Statement entered by Jovan Watson, DO - 05/14/25 12:57> I have seen and examined the patient and have discussed the case with the advance practice provider. I have reviewed the advanced practitioner's documentation, and I agree with, and take responsibility for that plan of care. Patient sitting in chair, states only had a average night sleep. No pain or shortness of breath. Understands looking for places for her to get therapy, [facility] approval pending. Continue plan of care as outlined below I spent a total of 10 minutes coordinating, documenting, and providing care for this patient excluding time spent by another provider/QHP. Date of Service May 14, 2025 Assessment & Plan (1) Ground-level fall: (2) Multiple rib fractures: (3) Ambulatory dysfunction: (4) Recurrent falls: (5) Parkinson's disease: (6) Oropharyngeal dysphagia: (7) Orthostatic hypotension: Plan Patient is a 69-year-old female with past medical history significant for hypothyroidism, SIADH, HTN, orthostatic hypotension, chronic diarrhea, protein-calorie malnutrition, GERD, RLS, Parkinson's disease with dyskinesia and fluctuating manifestations, GREGORIO, depression and frequent falls who presented to the ED on 05/08/2025 via EMS s/p GLF. Multiple rib fractures s/p GLF Ambulatory dysfunction 2/2 longstanding Parkinson's disease with motor fluctuations and recurrent falls. 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 Cervical spine CT, head CT and CXR w/o acute findings. CTAP and chest CT noting acute L 9th+10th rib fractures, R 11th rib fracture. Continue rib fracture management with PRN analgesia, topical lidocaine patch application and pulmonary hygiene measures. Pain well-controlled with scheduled Tylenol per pt. Fall precautions, PT/OT recommending SNF. [facility] >> pt stable for DC once approved and bed available. Parkinson's disease [facility], Dr. Dean. On Rytary, amantadine, Wellbutrin and Nuplazid. Nuplazid was recently started last month. Has been experiencing visual and auditory hallucinations for past several months >> likely 2/2 dopamine agonists. No clear evidence of infection identified. Hyperactive delirium Had bouts of hyperactive delirium requiring soft restraint application earlier this admission. Suspect multifactorial etiology ISO advancing Parkinson's, hospital environment, etc. Has not required soft restraints for >72hr. Displays some bouts of confusion during conversation but otherwise has been cooperative with nursing staff. Urinary retention Chronic issue for her when hospitalized, likely 2/2 immobility and chronic constipation. Attempted to use Purewick without success in ED. Mckenzie catheter had to be placed on admission >> then removed 05/10 with successful voiding trial. Continue to encourage mobility, continue bowel regimen. Mild-moderate oropharyngeal dysphagia Previously evaluated by ENCYCLOPEDIA RESEARCH WORKER last admission. VFSS c/w mild pharyngeal dysphagia with impact on swallow efficiency w/o impacting swallowing safety, no aspiration. Recommended easy to chew IDDSI 7 with thin liquids. Aspiration and reflux precautions, mouth care. Requires some assistance with feeds in light of advancing Parkinson's disease. Orthostatic hypotension ISO progressive Parkinson's disease Follows with Dr. Seble Rome. Ongoing and significantly symptomatic hypotension for which she is essentially dependent on fludrocortisone. Continue fludrocortisone uninterrupted. Allow for permissive HTN while supine and sitting >> as previously recommended by Dr. Pruett. Chronic constipation Last BM yesterday, 04/12. Continue bowel regimen. GERD Continue PPI. DVT Prophylaxis: SCDs/TEDs only given recurrent falls Code Status: FULL CODE PCP: Concepción Cline PA-C Disposition: Stable for DC once SNF bed available Patient seen in collaboration with Dr. Watson. Please see addendum. I spent a total of 32 minutes coordinating, documenting, and providing care for this patient excluding time spent in the performance of separately billed services or time spent by another provider/QHP. This included personally reviewing all current laboratories and imaging studies, medical reconciliation, outpatient chart review and discussion with specialists. This chart was completed in part utilizing Speech Voice Recognition Software. Grammatical errors, random word insertions, pronoun errors, and incomplete sentences are an occasional consequence of this system due to software l imitations, ambient noise, and hardware issues. Any formal questions or concerns about the content, text, or information contained within the body of this dictation should be directly addressed to the provider for clarification. Admission and Anticipated Discharge Date Admission Date: May 08, 2025 Subjective Patient seen and examined in room 318-1. Sitting up in chair at bedside when I entered the room. Offers no major complaints. Rib pain controlled. Unfortunately did not sleep well last night. Review of Systems Review of Systems: At least ten systems reviewed and negative, except as noted in the subjective section. Physical Exam Physical Exam: General: Elderly F, NAD, sitting up in bedside chair. A&Ox3 with bouts of confusion, conversing appropriately. HEENT: Normocephalic, oropharynx moist. Respiratory: Normal respiratory effort, on RA, CTAB, no accessory muscle use. Cardiovascular: RRR, normal peripheral pulses, no BLE edema. Abdomen/GI: Active bowel sounds, soft, nontender to palpation in all quadrants. Extremities/MSK: No cyanosis or clubbing, + BUE resting tremors, actively able to move all extremities. 1 assist with walker when ambulating. Neurologic: No overt focal deficits, intact higher integrative functions. Results & Data Results & Data Vital Signs (Past 12 Hours) Vital Signs Temp Pulse Resp BP Pulse Ox O2 Del Method 05/14/25 07:19 36.6 C 79 16 168/78 H 99 Room Air 05/13/25 22:46 36.6 C 86 18 176/82 H 97 Room Air
--- NOTE | 2025-05-15 09:57 | Hospitalist Progress Note ---
<Statement entered by Jovan Watson DO - 05/15/25 11:26> I have seen and examined the patient and have discussed the case with the advance practice provider. I have reviewed the advanced practitioner's documentation, and I agree with, and take responsibility for that plan of care. No acute issues, patient doing well. Communication with case management, unfortunately financial issues with getting fpc placement at [facility]. Will need to have ongoing conversation with patient and family as to options for placement. Case management reports family unable to care for her at home. I spent a total of 15 minutes coordinating, documenting, and providing care for this patient excluding time spent by another provider/QHP. Date of Service May 15, 2025 Assessment & Plan (1) Ambulatory dysfunction: (2) Ground-level fall: (3) Multiple rib fractures: (4) Recurrent falls: (5) Parkinson's disease: (6) Oropharyngeal dysphagia: (7) Orthostatic hypotension: Plan Patient is a 69-year-old female with past medical history significant for hypothyroidism, SIADH, HTN, orthostatic hypotension, chronic diarrhea, protein- calorie malnutrition, GERD, RLS, Parkinson's disease with dyskinesia and fluctuating manifestations, GREGORIO, depression and frequent falls who presented to the ED on 05/08/2025 via EMS s/p GLF. Multiple rib fractures s/p GLF Ambulatory dysfunction 2/2 longstanding Parkinson's disease with motor fluctuations and recurrent falls. 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 Cervical spine CT, head CT and CXR w/o acute findings. CTAP and chest CT noting acute L 9th+10th rib fractures, R 11th rib fracture. Continue rib fracture management with PRN analgesia, topical lidocaine patch application and pulmonary hygiene measures. Pain well-controlled with scheduled Tylenol per pt. Fall precautions, PT/OT recommending SNF >> [facility] unable to accept. Chatted with pt's sister, Eliane, this morning >> aware of [place] facilities, plan toño on speaking with CM later today. Pt stable for DC once SNF placement becomes available. Parkinson's disease Follows with [facility], Dr. Dean. On Rytary, amantadine, Wellbutrin and Nuplazid. Nuplazid was recently started last month. Has been experiencing visual and auditory hallucinations for past several months >> likely 2/2 dopamine agonists. No clear evidence of infection identified. Hyperactive delirium Had bouts of hyperactive delirium requiring soft restraint application earlier this admission. Suspect multifactorial etiology ISO advancing Parkinson's, hospital environment, etc. Has not required soft restraints for >72hr. Displays some minor bouts of confusion during conversation but otherwise has been cooperative with nursing staff. Urinary retention Chronic issue for her when hospitalized, likely 2/2 immobility and chronic constipation. Attempted to use Purewick without success in ED. Mckenzie catheter had to be placed on admission >> then removed 05/10 with successful voiding trial. Continue to encourage mobility, continue bowel regimen. Mild-moderate oropharyngeal dysphagia Previously evaluated by CHILD ATTENDANT last admission. VFSS c/w mild pharyngeal dysphagia with impact on swallow efficiency w/o impacting swallowing safety, no aspiration. Recommended easy to chew IDDSI 7 with thin liquids. Aspiration and reflux precautions, mouth care. Requires some assistance with feeds in light of advancing Parkinson's disease. Orthostatic hypotension ISO progressive Parkinson's disease Follows with Dr. Seble Rome. Ongoing and significantly symptomatic hypotension for which she is essentially dependent on fludrocortisone. Continue fludrocortisone uninterrupted. Allow for permissive HTN while supine and sitting >> as previously recommended by Dr. Pruett. Chronic constipation Last BM yesterday, 04/12. Continue bowel regimen. GERD Continue PPI. DVT Prophylaxis: SCDs/TEDs only given recurrent falls Code Status: FULL CODE PCP: Concepción Cline PA-C Disposition: Stable for DC once SNF bed available as per above. Patient seen in collaboration with Dr. Watson. Please see addendum. I spent a total of 30 minutes coordinating, documenting, and providing care for this patient excluding time spent in the performance of separately billed services or time spent by another provider/QHP. This included personally reviewing all current laboratories and imaging studies, medical reconciliation, outpatient chart review and discussion with specialists. This chart was completed in part utilizing Speech Voice Recognition Software. Grammatical errors, random word insertions, pronoun errors, and incomplete sentences are an occasional consequence of this system due to software limitations, ambient noise, and hardware issues. Any formal questions or concerns about the content, text, or information contained within the body of this dictation should be directly addressed to the provider for clarification. Admission and Anticipated Discharge Date Admission Date: May 08, 2025 Subjective Patient seen and examined in room 318-1. Still awaiting placement. Sitting up in chair at bedside eating breakfast, offers no major complaints. Slept better last night. Review of Systems Review of Systems: At least ten systems reviewed and negative, except as noted in the subjective section. Physical Exam Physical Exam: General: Elderly F, NAD, sitting up in bedside chair. A&Ox3 with minor bouts of confusion but otherwise conversing appropriately. HEENT: Normocephalic, oropharynx moist. Respiratory: Normal respiratory effort, on RA, CTAB, no accessory muscle use. Cardiovascular: RRR, normal peripheral pulses, no BLE edema. Abdomen/GI: Active bowel sounds, soft, nontender to palpation in all quadrants. Extremities/MSK: No cyanosis or clubbing, + BUE resting tremors, actively able to move all extremities. 1 assist with walker when ambulating. Neurologic: No overt focal deficits, intact higher integrative functions. Results & Data Results & Data Vital Signs (Past 12 Hours) Vital Signs Temp Pulse Resp BP Pulse Ox O2 Del Method 05/15/25 08:16 36.9 C 97 H 14 173/85 H 96 Room Air 05/14/25 23:40 36.5 C 74 16 165/84 H 98 Room Air
[2025-05-16 10:43] VITALS: TEMP 98.1
--- NOTE | 2025-05-16 13:15 | Hospitalist Progress Note ---
Date of Service May 16, 2025 Assessment & Plan (1) Ambulatory dysfunction: (2) Ground-level fall: (3) Multiple rib fractures: (4) Recurrent falls: (5) Parkinson's disease: (6) Oropharyngeal dysphagia: (7) Orthostatic hypotension: Plan Patient is a 69-year-old female with past medical history significant for hypothyroidism, SIADH, HTN, orthostatic hypotension, chronic diarrhea, protein- calorie malnutrition, GERD, RLS, Parkinson's disease with dyskinesia and fluctuating manifestations, GREGORIO, depression and frequent falls who presented to the ED on 05/08/2025 via EMS s/p GLF. Multiple rib fractures s/p GLF Ambulatory dysfunction 2/2 longstanding Parkinson's disease with motor fluctuations and recurrent falls. 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 Cervical spine CT, head CT and CXR w/o acute findings. CTAP and chest CT noting acute L 9th+10th rib fractures, R 11th rib fracture. Continue rib fracture management with PRN analgesia, topical lidocaine patch application and pulmonary hygiene measures. Pain well-controlled with scheduled Tylenol per pt. Fall precautions, PT/OT recommending SNF >> [facility] unable to accept. CM assisting with dc planning , pt is medically stabe. Parkinson's disease Follows with [facility], Dr. Dean. On Rytary, amantadine, Wellbutrin and Nuplazid (started in Apr 2025). Pt w/ visual and auditory hallucinations for past several months >> likely 2/2 dopamine agonists. Hyperactive delirium Had bouts of hyperactive delirium requiring soft restraint application earlier this admission. Suspect multifactorial etiology ISO advancing Parkinson's, hospital environment, etc. Has not required soft restraints for >72hr. has been cooperative with nursing staff. Urinary retention Chronic issue for her when hospitalized, likely 2/2 immobility and chronic constipation. Mckenzie catheter had to be placed on admission >> then removed 05/10 with successful voiding trial. Continue to encourage mobility, continue bowel regimen. Mild-moderate oropharyngeal dysphagia Previously evaluated by WIRE FENCE ERECTOR last admission. VFSS c/w mild pharyngeal dysphagia with impact on swallow efficiency w/o impacting swallowing safety, no aspiration. Recommended easy to chew IDDSI 7 with thin liquids. Aspiration and reflux precautions, mouth care. Requires some assistance with feeds in light of advancing Parkinson's disease. Orthostatic hypotension ISO progressive Parkinson's disease Follows with Dr. Seble Rome. Ongoing and significantly symptomatic hypotension for which she is essentially dependent on fludrocortisone. Continue fludrocortisone uninterrupted. Allow for permissive HTN while supine and sitting >> as previously recommended by Dr. Pruett. Chronic constipation Last BM05/16 Continue bowel regimen GERD Continue PPI. DVT Prophylaxis: SCDs/TEDs only given recurrent falls Lines : PIV x 1 Code Status: FULL CODE Disposition: Medically stable for DC, pending placement I spent a total of 33 minutes coordinating, documenting, and providing care for this patient excluding time spent in the performance of separately billed services or time spent by another provider/QHP. This included personally reviewing all current laboratories and imaging studies, medical reconciliation, outpatient chart review and discussion with specialists. Admission and Anticipated Discharge Date Admission Date: May 08, 2025 Supervising Physician Co-Signing Physician Notes I have discussed the case with the collaborating advanced practitioner. I agree with the above PN. I have reviewed and confirmed the patients medical history, the findings on physical examination, and the patients diagnosis and treatment plan with Ashley ANDERSON and agree with the information documented. I have reviewed the advanced practitioner's documentation, and I agree with, and take responsibility for the plan of care Subjective Pt seen at bedside and is doing well today. No acute complaints today. She is sitting up in bedside chair. Participating with PT/OT consistently. Awaiting transfer to SNF/rehab. CM assisting. 10 point ROS reviewed and otherwise negative. Physical Exam Physical Exam: General: awake, alert, no apparent distress, elderly white female, sitting up in bedside chair Head: Normocephalic, atraumatic ENT: PERRL, EOMI, no pharyngeal exudate, mucous membranes moist Chest: Clear to auscultation, on room air, no adventitious breath sounds Cardiac: Regular rate and rhythm, no murmur, no JVD, normal peripheral pulses, good capillary refill Abdominal: NABS x 4 quadrants, soft, nondistended, nontender to palpation, no rebound or guarding Extremities: BUE with fine tremor at rest, Normal inspection, no peripheral edema or erythema, calfs nontender to palpation Psych: Normal mood and affect Neuro: AAO x 3, strength intact bilaterally and rated 5/5, no motor deficits, speech is clear, no peripheral sensory deficits Results & Data Results & Data Vital Signs (Past 12 Hours) Vital Signs Temp Pulse Resp BP Pulse Ox O2 Del Method 05/16/25 10:41 36.7 C 78 18 116/72 98 Room Air 05/16/25 07:26 36.2 C L 83 18 126/81 98 Room Air
[2025-05-16 14:48] VITALS: BP 159/81; PULSE 90; RESP 16; O2SAT 92
--- NOTE | 2025-05-16 15:55 | Discharge Summary ---
Date of Service May 16, 2025 Admission HPI Per Admitting Provider Patient is a 69-year-old female with past medical history significant for hypothyroidism, SIADH, HTN, orthostatic hypotension, chronic diarrhea, protein- calorie malnutrition, GERD, RLS, Parkinson's disease with dyskinesia and fluctuating manifestations, GREGORIO, depression and frequent falls who presented to the ED via EMS s/p GLF. History obtained from the patient, patient's sisters at bedside, discussion with ED provider and associated chart review. Recent confinement under our service 03/05/25-03/14/25 due to weakness and ambulatory dysfunction in the setting of longstanding Parkinson's disease with motor fluctuations. Hospitalization c/b development of acute metabolic encephalopathy with fever. Negative infectious workup including LP, chest CTA and brain MRI. Was discharged to SNF, [facility]. Returned home from [facility] on 04/05/25. Her sister, Viola, has been staying with her since being home from SNF. Sustained a GLF this past Tuesday while getting up out of bed and landed on her left side, no reported head strike or LOC. Her sisters, Viola and Eliane, were able to get her up off of the floor. No cuts or abrasions were sustained however she had been complaining of some left-sided rib pain. Then this morning she sustained another GLF while ambulating to the restroom with her walker. Patient mentions her socks caused her to slip on the hardwood floor and she fell backwards, primarily on her right side with confirmed head strike but no LOC. Her sisters attempted to get her up off of the floor but were unable as she was complaining of significant rib pain with any sort of movement and upward lifting momentum. EMS was subsequently called. Patient has had a significant decline in her ambulatory function over the course of the past several months. Reportedly patient has experienced approximately 40 falls since December of this year. She was ambulating with a walker at [facility] but since being home she has sustained at least 4 falls whilst using the walker. Reportedly patient has home health services provided through [facility]. It was advised earlier this month that the patient should be utilizing a wheelchair to move within her home instead of a walker given her recurrent falls. Patient has not been fully compliant with this. Patient has also been experiencing worsening visual hallucinations over the past several months. Was started on Nuplazid approximately 1 month ago by her neurologist, Dr. Dean, of [facility]. Her sisters have noticed more frequent hallucinations since she started taking this medication. However, they were advised to continue this medication as it was deemed not likely to be the cause. Her sisters report that her vision has been slowly worsening due to bilateral glaucoma. Was started on corticosteroid eye drops recently for this. Patient was recently treated for a UTI last month with ciprofloxacin. Denies any dysuria or hematuria. Feels she may be experiencing some increased urinary frequency. No reported fevers, chills or myalgias. Possibly some increased weakness. Denies any SOB, chest pain, cough, congestion or abdominal pain. Having regular bowel movements, last one was yesterday. Appetite feels unchanged from baseline. No reported N/V/D. Rib pain improved s/p 50mcg IV fentanyl in ED. Patient reports feeling comfortable at rest. Admission Exam Per Admitting Provider Physical Exam: General: Elderly F, NAD, laying down in bed, A&Ox3, conversing appropriately, sisters at bedside. HEENT: Normocephalic, + hematoma on posterior scalp (no open wound or cut), conjunctivae normal, oropharynx slightly dry. Respiratory: Normal respiratory effort, on RA and saturating around 98%, CTAB, no accessory muscle use. Cardiovascular: Tachycardic rate (HR 95bpm), regular rhythm, normal peripheral pulses, no BLE edema. Abdomen/GI: Active bowel sounds, soft, nontender to palpation in all quadrants. Extremities/MSK: No cyanosis or clubbing, + BUE resting tremors, actively able to move all extremities. Neurologic: No overt focal deficits, intact higher integrative functions, mood and affect are normal. Principal Diagnosis Ambulatory Dysfunction Multiple Rib Fractures Discharge Exam General: awake, alert, no apparent distress, elderly white female, sitting up in bedside chair Head: Normocephalic, atraumatic ENT: PERRL, EOMI, no pharyngeal exudate, mucous membranes moist Chest: Clear to auscultation, on room air, no adventitious breath sounds Cardiac: Regular rate and rhythm, no murmur, no JVD, normal peripheral pulses, good capillary refill Abdominal: NABS x 4 quadrants, soft, nondistended, nontender to palpation, no rebound or guarding Extremities: BUE with fine tremor at rest, Normal inspection, no peripheral edema or erythema, calfs nontender to palpation Psych: Normal mood and affect Neuro: AAO x 3, strength intact bilaterally and rated 5/5, no motor deficits, speech is clear, no peripheral sensory deficits Discharge Data Allergies Allergy/AdvReac Type Severity Reaction Status Date / Time No Known Allergies Allergy Verified 03/05/25 15:41 Consultations 05/08/25 08:26 ED Decision to Admit Stat Ordered Studies 05/08/25 05:14 CT cervical spine wo con Stat CT head/brain wo con Stat 05/08/25 05:24 CT Abd and Pelvis [CT abd pelvis IV con only] Stat CT chest diagnostic w con Stat Hospital Course (1) Ambulatory dysfunction: (2) Ground-level fall: (3) Multiple rib fractures: (4) Recurrent falls: (5) Parkinson's disease: (6) Oropharyngeal dysphagia: (7) Orthostatic hypotension: Plan Patient is a 69-year-old female with past medical history significant for hypothyroidism, SIADH, HTN, orthostatic hypotension, chronic diarrhea, protein- calorie malnutrition, GERD, RLS, Parkinson's disease with dyskinesia and fluctuating manifestations, GREGORIO, depression and frequent falls who presented to the ED on 05/08/2025 via EMS s/p GLF. Multiple rib fractures s/p GLF Ambulatory dysfunction 2/2 longstanding Parkinson's disease with motor fluctuations and recurrent falls. Ground level fall ambulating to restroom with walker [employer]. 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 Cervical spine CT, head CT and CXR w/o acute findings. CTAP and chest CT noting acute L 9th+10th rib fractures, R 11th rib fracture. Continue rib fracture management with PRN analgesia, topical lidocaine patch application and pulmonary hygiene measures. Pain well-controlled with scheduled Tylenol Fall precautions PT/OT - pt walked 250 ft with walker two separate times today 05/16--- she and family are agreeable to going home with home health at this time due to significant improvement since admission, and since no bed would be available until next week at facility for rehab. Parkinson's disease Follows with [facility], Dr. Dean. On Rytary, amantadine, Wellbutrin and Nuplazid (started in Apr 2025). Pt w/ visual and auditory hallucinations for past several months >> likely 2/2 dopamine agonists. Hyperactive delirium - resolved Had bouts of hyperactive delirium requiring soft restraint application earlier this admission. Suspect multifactorial etiology ISO advancing Parkinson's, hospital environment, etc. Urinary retention- resolved Chronic issue for her when hospitalized, likely 2/2 immobility and chronic constipation. Mckenzie catheter had to be placed on admission >> then removed 05/10 with successful voiding trial. Continue to encourage mobility, continue bowel regimen. Mild-moderate oropharyngeal dysphagia Previously evaluated by [facility] [facility] last admission. VFSS c/w mild pharyngeal dysphagia with impact on swallow efficiency w/o impacting swallowing safety, no aspiration. Recommended easy to chew IDDSI 7 with thin liquids. Aspiration and reflux precautions, mouth care. Requires some assistance with feeds in light of advancing Parkinson's disease. Orthostatic hypotension ISO progressive Parkinson's disease Follows with Dr. Seble Rome. Ongoing and significantly symptomatic hypotension for which she is essentially dependent on fludrocortisone. Continue fludrocortisone uninterrupted. Allow for permissive HTN while supine and sitting >> as previously recommended by Dr. Pruett. Chronic constipation Last BM, 05/16 Continue bowel regimen GERD Continue PPI. DVT Prophylaxis: SCDs/TEDs only given recurrent falls Lines : PIV x 1 Code Status: FULL CODE Disposition: Medically stable for DC, dc home with services I spent a total of 33 minutes coordinating, documenting, and providing care for this patient excluding time spent in the performance of separately billed services or time spent by another provider/QHP. This included personally reviewing all current laboratories and imaging studies, medical reconciliation, outpatient chart review and discussion with specialists. Total Time Total Time Spent Total Time Spent (In Minutes): 35 Discharge Plan Discharge Items Patient Disposition: Home - Home Health Services Reason For Visit: RIB FRACTURES S/P GLF, AMBULATORY DYSFUNCTION Discharge Diagnosis: Ambulatory dysfunction Condition on Discharge: Fair Activity: Resume your previous activity Lifting: Gradually increase as tolerated Bathing: No limitations Exercise/Sports: Gradually increase as tolerated Weightbearing: Full weightbearing Weightbearing Comment: Use walker with ambulation Non-emergency contact: Primary Care Provider Call non-emergency contact if: you have any medication questions and your symptoms worsen Follow-up/Referrals: Concepción Cline PA-C [Primary Care Provider] - Diet: Regular Diet Texture: Easy to Chew Addtl Attending Provider Instructions: You were admitted to [facility] due to ambulatory dysfunction, rib fractures, Parkinson's disease and diagnosed with ambulatory dysfunction. During your stay here you were treated with supportive care, medications and received Physical therapy and your symptoms improved. Imaging studies which were completed include Chest CT, and were abnormal showing fracture of the left 9th and 10th rib, and right 11th rib with a small right pleural effusion. Continue to practice deep breathing exercises to keep your airways open with incentive spirometer and flutter devices. CT of the head showed chronic microvascular ischemic changes which were stable but no acute evidence of stroke or bleed. Prior to discharge the patient was able to ambulate 250 feet with rolling walker without difficulty, she will be discharged home with home health services which have been set up with our case management department. Medications: Continue taking you medications as prescribed Appointments: Follow up with PCP within 1 week, an appointment has been requested for you. Pending Studies at Discharge: No Stand-Alone Forms: My [facility], Smoking Cessation Medications and DC Order Prescriptions: Continued magnesium 250 mg Tablet 250 mg PO Q OTHER DAY multivitamin with minerals Tablet 1 tab PO DAILY Probiotic 10 billion cell Capsule 10,000 mmu cells PO DAILY amantadine HCl 100 mg capsule 100 mg PO BID Rx Instructions: Take at 0500 and 1230pm omeprazole 40 mg capsule,delayed release(DR/EC) 40 mg PO DAILYBB acetaminophen 500 mg Tablet 1,000 mg PO TID PRN (Reason: Pain) triamcinolone acetonide 0.1 % paste 1 applic dental BID docusate sodium [Colace] 100 mg Capsule 100 mg PO DAILY fludrocortisone 0.1 mg tablet 0.1 mg PO DAILY Ensure Liquid 1 ea PO DAILY bupropion HCl 300 mg tablet extended release 24 hr 300 mg PO QAM carbidopa-levodopa [Rytary] 36.25-145 mg capsule, extended release 2 cap PO TID Rx Instructions: Take 2 capsules by mouth at 5am, 10am and 3pm carbidopa-levodopa [Rytary] 36.25-145 mg capsule, extended release 3 cap PO HS Rx Instructions: Take 3 capsules by mouth at 9pm Nuplazid 34 mg capsule 34 mg PO HS melatonin 3 mg Tablet 6 mg PO HS prednisolone acetate 1 % drops,suspension 1 drp OPB TID Discharge Orders: Discharge Order (Routine); Ordered 05/16/25 Ordered By: Gisell Ramirez Admission Data Admit Date/Time: 05/08/25 08:35 Attending Provider: Dionne Brooks Admit Provider: Adrian Rasheed Primary Care Provider: Concepción Cline. Other Providers: Adrian Rasheed; [facility],[facility]; [facility]; [facility]; [facility] Other Interventions: Discharge Summary Assessment (RN) Last Done: 05/16/25 15:53 Supervising Physician Co-Signing Physician Notes I have seen and discussed the case with the collaborating advanced practitioner. I agree with the above DS I have reviewed and confirmed the patients medical history, the findings on physical examination, and the patients diagnosis and treatment plan with Ashley ANDERSON and agree with the information documented. Patient was admitted for falls complicated by multiple rib fractures. Patient was awaiting SNF, however, patient not accepted. Ulimately, it was agreed to discharge home with . Patient denies any acute concerns and reports happy with plan moving forward. Agree with above. I spent a total of 15 minutes coordinating, documenting, and providing care for this patient excluding time spent in the performance of separately billed services. All of the aforementioned completed outside of collaborating with the assigned advanced practitioner for a full treatment plan. I have reviewed the advanced practitioner's documentation, and I agree with, and take responsibility for the plan of care
== END 2025-05-16 16:54 | disposition home health service (06) | DRG 183 ==
LOC: ED 04:54 → EDINP 08:35 → SUATTDRO 08:35 → 3E 15:40

== ENCOUNTER 2025-06-06 04:27 | Inpatient (IN) ==
[2025-06-06] MEDS: LACTATED RINGER'S 1,000 ML IV SCH (04:45)
[2025-06-06 05:17] LABS: Hematocrit (blood only) 35.1 % (37.0-47.0); Hemoglobin 12.1 g/dL (12.0-16.0); Mean Corpuscular Hemoglobin 31.0 pg (25.0-34.0); Mean Corpuscular Volume 90.0 fL (80.0-100.0); Platelet Count 314 K/uL (130-400); RDW Standard Deviation 46.6 fL (36.4-46.3); Red Blood Count 3.90 M/uL (4.20-5.40); White Blood Count 7.48 K/ul (4.8-10.8)
--- NOTE | 2025-06-06 05:21 | Emergency Department Note ---
Impression & Plan Generalized weakness, Diarrhea, Hypokalemia, C. difficile colitis ED Provider Note ED Provider Note NAME: DANNIE ANDRADE AGE:69 SEX: Female : 1955 ARRIVES VIA: EMS INFORMANT: Patient, EMS ED PROVIDER(s): Lula Marcelino DO CHIEF COMPLAINT: Weakness, decreased oral intake, diarrhea HPI: This is a 69-year-old female who presents to the emergency department via EMS due to concern for increasing weakness, decreased oral intake, and ongoing diarrhea. Patient recently diagnosed with C. difficile and was just started on vancomycin yesterday. Family reports following her recent admission she has been in decline with decreased intake, increased fatigue and weakness, difficulty taking her medications, and persistent diarrhea that was finally diagnosed. Patient states she has intermittent central abdominal pain, denies any bloating or distention, denies fevers or chills, denies any vomiting. She states she does have intermittent nausea. Patient with a known history of Parkinson's. PAST MEDICAL HISTORY:See Below PAST SURGICAL HISTORY:See Below FAMILY HISTORY:See Below SOCIAL HISTORY:See Below HOME MEDICATIONS:See Below ALLERGIES:See Below VITALS:See Below PHYSICAL EXAMINATION: GENERAL: alert, unwell appearing, well nourished, no distress, non-toxic EYE EXAM: normal conjunctiva, PERRL and EOM's grossly intact OROPHARYNX: no exudate, no erythema, lips, buccal mucosa, and tongue normal and mucous membranes are dry NECK: supple, no nuchal rigidity, no adenopathy, non-tender LUNGS: Clear to auscultation. Normal chest wall mechanics, no w/r/r HEART: no murmurs, S1 normal and S2 normal ABDOMEN: abdomen soft, non-tender, normo-active bowel sounds, no masses, no rebound or guarding. SKIN: no rashes, petechiae, orbruising UPPER EXTREMITIES: upper extremities are grossly normal. FROM, nml pulses b/l. LOWER EXTREMITIES: No pitting edema. FROM, nml pulses b/l. NEURO EXAM: Normal sensorium, cranial nerves II-XII grossly intact, normal speech, no facial droop,nogross weakness of arms, no gross weakness of legs. Gross sensation intact. No ataxia. Vital Signs: reviewed and remarkable Differential Diagnosis: dehydration, stroke, anemia, hypoglycemia, hyponatremia, hypernatremia, urinary tract infection, pneumonia, bronchitis, sepsis, gastroenteritis, additional abdominal pathology, metabolic abnormalities, as well as others were considered MEDICAL DECISION MAKING: This is a 69-year-old female who presents to the emergency department due to progressive weakness due to ongoing diarrhea and recent diagnosis of C. difficile. Patient was started on vancomycin but has had difficulty due to ongoing nausea with staying hydrated, eating, and even taking medications. Family at bedside helps provide additional history. Patient's symptoms are complicated by the fact that she has Parkinson disease additionally. Labs drawn and sent, IV established, EKG and CXR performed at bedside and interpreted by me and patient was monitored on telemetry. She was started on gentle IV fluid hydration due to history and clinical appearance of dehydration. Patient's abdomen is soft and nontender so additional imaging not urgently pursued. Despite progressive weakness, labs reassuring. Due to need for further supportive therapy, IV hydration, IV potassium repletion, and complicated past medical history, case discussed with the hospitalist team for additional evaluation management. Consultation(s): 0550: Discussed with Dr. Hernandez, [facility] hospitalist team, for additional evaluation and mgmt. ER Treatment Provided: See below 0545: Discussed with family now at bedside. Diagnostics Interpreted By Me: -ECG: Sinus tachycardia at 106, normal axis, normal intervals, no acute ST/T wave changes, baseline artifact noted from tremors -Cardiac Monitoring: An order was placed for continuous cardiac monitoring. The monitor shows a rate of 101 with sinus tachycardia rhythm. -Laboratory studies: As stated above and show below. -Imaging studies: Triage Nursing Note Reviewed Prior/Outside Records Reviewed -outpatient office visit from 06/04/2025 with patient's PCP reviewed Past Med/Surg History Problem List (Updated 06/07/25 @ 00:06 by Lula aMrcelino DO) C. difficile colitis (Acute) C. difficile diarrhea History of urinary retention Hypotension Hypokalemia (Acute) Diarrhea (Acute) Generalized weakness (Acute) Orthostatic hypotension Oropharyngeal dysphagia Recurrent falls Multiple rib fractures Ground-level fall Closed head injury (Acute) Rib fractures (Acute) Acute respiratory failure with hypoxia Fever Hypernatremia Encephalopathy acute Delirium due to another medical condition, acute, hyperactive Ambulatory dysfunction Unable to ambulate (Acute) Falls frequently (Acute) Weakness (Acute) Medical History SIADH (syndrome of inappropriate ADH production) Depression Sinus tachycardia Elevated BP without diagnosis of hypertension GERD (gastroesophageal reflux disease) Parkinson's disease Acute hyponatremia Weight loss Urinary symptom or sign Hyponatremia Surgical History History of esophagogastroduodenoscopy History of colonoscopy Family History Other Diabetes Heart disease Social History Smoking Status: Never smoker Second Hand Exposure: No; Do You Dip or Chew Tobacco: No; Hx Alcohol Use: No Hx Substance Use: No Preferred Language: Urdu Communication Ability: Effective Receiver Stocker Required: No Beliefs That Will Affect Care: None marital status: / Current Living Situation: Family current occupational status: retired Feels Safe at Home: Yes Assistive Devices: Cane, Walker and Wheelchair Allergies Allergies Allergy/AdvReac Type Severity Reaction Status Date / Time No Known Allergies Allergy Verified 03/05/25 15:41 Home Meds Home Medications Medication Instructions Recorded Confirmed Lactobacillus acidophilus 10 10,000 mmu cells PO DAILY 02/18/22 06/06/25 billion cell capsule (Probiotic) magnesium 250 mg tablet 250 mg PO Q OTHER DAY 02/18/22 06/06/25 multivitamin with minerals 1 tab PO DAILY 02/18/22 06/06/25 omeprazole 40 mg capsule,delayed 40 mg PO DAILYBB 02/18/22 06/06/25 release acetaminophen 500 mg tablet 1,000 mg PO TID PRN Pain 03/05/25 06/06/25 bupropion HCl 300 mg 24 hr tablet, 300 mg PO QAM 03/05/25 06/06/25 extended release carbidopa ER 36.25 mg-levodopa 145 2 cap PO TID 03/05/25 05/08/25 mg capsule,extended release (Rytary) carbidopa ER 36.25 mg-levodopa 145 3 cap PO HS 03/05/25 05/08/25 mg capsule,extended release (Rytary) docusate sodium 100 mg capsule 100 mg PO DAILY PRN Constipation 03/05/25 06/06/25 (Colace) fludrocortisone 0.1 mg tablet 0.1 mg PO DAILY 03/05/25 06/06/25 food supplemt, lactose-reduced 1 ea PO DAILY 03/05/25 06/06/25 (Ensure oral liquid) triamcinolone acetonide 0.1 % 1 applic dental BID Apply to 03/05/25 06/06/25 dental paste inside of cheek pimavanserin 34 mg capsule 34 mg PO HS 03/14/25 06/06/25 (Nuplazid) melatonin 3 mg tablet 6 mg PO HS 05/08/25 05/08/25 prednisolone acetate 1 % eye 1 drp OPB TID 05/08/25 06/06/25 drops,suspension carbidopa ER 36.25 mg-levodopa 145 1 cap PO QID 06/06/25 06/06/25 mg capsule,extended release (Rytary) food supplemt, lactose-reduced See Rx Instructions .Route .COMPLEX 06/06/25 06/06/25 (Ensure oral liquid) ondansetron HCl 4 mg tablet 4 mg PO Q8H PRN nausea 06/06/25 06/06/25 vancomycin 125 mg capsule 125 mg PO QID 06/06/25 06/06/25 (Vancocin) Results & Data (ED) Vital Signs Vital Signs - 24 hr 06/06/25 04:42 06/06/25 04:42 06/06/25 05:06 Temperature 37 C 37 C Temperature Source Oral Oral Pulse Rate 101 H 103 H Pulse Rate [Apical] 101 H Pulse Rate from SpO2 Sensor 103 H Pulse Rhythm Regular Pulse Rhythm [Apical] Regular Pulse Strength Normal Pulse Strength [Apical] Normal Respiratory Rate 16 18 19 Respiratory Effort / Characteristics Non-Labored Spontaneous Non-Labored Spontaneous Respiratory Depth Normal Normal Respiratory Pattern Regular Regular Blood Pressure 99/54 L Blood Pressure [Right Arm] 99/54 L Blood Pressure Mean 69 Blood Pressure Mean [Right Arm] 69 Blood Pressure Position Sitting Blood Pressure Position [Right Arm] Sitting Pulse Oximetry 97 96 96 Oxygen Delivery Method Room Air Room Air Sepsis Recent Fever Within 48 Hours No Sepsis New/Unexplained Change in Mental Status No Sepsis Action Taken by Nursing No Action Required 06/06/25 05:16 06/06/25 06:00 Temperature Temperature Source Pulse Rate 101 H 102 H Pulse Rate [Apical] Pulse Rate from SpO2 Sensor 102 H Pulse Rhythm Pulse Rhythm [Apical] Pulse Strength Pulse Strength [Apical] Respiratory Rate 23 Respiratory Effort / Characteristics Respiratory Depth Respiratory Pattern Blood Pressure Blood Pressure [Right Arm] Blood Pressure Mean Blood Pressure Mean [Right Arm] Blood Pressure Position Blood Pressure Position [Right Arm] Pulse Oximetry 97 Oxygen Delivery Method Sepsis Recent Fever Within 48 Hours Sepsis New/Unexplained Change in Mental Status Sepsis Action Taken by Nursing Laboratory Data 06/06/25 19:43 06/06/25 04:37 Lab Results 06/06/25 06/06/25 06/06/25 Range/Units 04:37 04:45 04:55 WBC 7.48 (4.8-10.8) K/ul RBC 3.90 L (4.20-5.40) M/uL Hgb 12.1 (12.0-16.0) g/dL Hct 35.1 L (37.0-47.0) % MCV 90.0 (80.0-100.0) fL MCH 31.0 (25.0-34.0) pg MCHC 34.5 (32.0-36.0) g/dL RDW Std Deviation 46.6 H (36.4-46.3) fL RDW Coeff of Jovani 14.3 (11.5-14.5) % Plt Count 314 (130-400) K/uL MPV 9.7 (9.4-12.4) fL Immature Gran % (Auto) 0.7 % Neut % (Auto) 70.4 % Lymph % (Auto) 6.6 % [place] % (Auto) 21.1 % Eos % (Auto) 0.1 % Baso % (Auto) 1.1 % Neut # (Auto) 5.27 (1.40-6.50) K/uL Lymph # (Auto) 0.49 L (1.20-3.40) K/uL [place] # (Auto) 1.58 H (0.11-0.59) K/uL Eos # (Auto) 0.01 (0.00-0.50) K/uL Baso # (Auto) 0.08 (0.00-0.20) K/uL Immature Gran # (Auto) 0.05 (0.01-0.20) K/uL Toxic Vacuolation 1+ Polychromasia 1+ PT 11.7 (9.0-12.0) Seconds INR 1.1 (0.9-1.1) Sodium 137 (136-145) mmol/L Potassium 3.1 L (3.5-5.1) mmol/L Chloride 100 (98-107) mmol/L Carbon Dioxide 23 (21-32) mmol/L Anion Gap 14 H (3-11) BUN 15 (6-23) mg/dl Creatinine 0.48 L (0.6-1.2) mg/dl Est Cr Clr Drug Dosing 70.4 ml/min eGFR 101.83 BUN/Creatinine Ratio 31.3 H (10-20) Glucose 123 H (70-99(Fasting)) mg/dl Lactate 0.9 (0.4-2.0) mmol/L Calcium 9.1 (8.6-10.3) mg/dl Magnesium 1.8 (1.7-2.4) mg/dl Total Bilirubin 0.4 (0.2-1.0) mg/dl AST 7 L (13-39) U/L ALT < 3 L (7-52) U/L Alkaline Phosphatase 71 (34-104) U/L Troponin I High Sens 5.5 (0-14) pg/ml Total Protein 6.9 (6.0-8.3) gm/dl Albumin 4.1 (3.4-5.0) gm/dl Globulin 2.8 (2.5-4.0) gm/dl Albumin/Globulin Ratio 1.5 (0.9-2) Lipase < 3 L (11-82) U/L Procalcitonin 0.59 H (0-0.5) ng/ml TSH 0.642 (0.300-4.500) uIu/ml Urine Color Dark Yellow Urine Appearance Clear (Clear) Urine pH 6.0 (4.5-7.5) Ur Specific [place] 1.032 H (1.000-1.030) Urine Protein 2+ H (Negative) Urine Glucose (UA) Negative (Negative) Urine Ketones 4+ H (Negative) Urine Blood Negative (Negative) Urine Nitrite Negative (Negative) Urine Bilirubin Negative (Negative) Urine Urobilinogen Negative (Negative) Ur Leukocyte Esterase Trace H (Negative) Urine WBC (Auto) 0-5 (0-5) /hpf Urine RBC (Auto) 11-20 H (0-2) /hpf U Hyaline Cast (Auto) 0-2 (0-2) /lpf U Epithel Cells (Auto) 0-2 (0-2) /hpf Urine Bacteria (Auto) None Seen (None Seen) Urine Comment Administered Medications Bupropion HCl (Bupropion Xl 300 Mg Tabcr) 300 mg PO QAM JW Stop: 07/06/25 10:59 Last Admin: 06/06/25 11:39 Dose: 300 mg Documented By: TOBIAS Carbidopa/Levodopa (Carbidopa/Levodopa 36.25 Mg/145 Mg Cap) 2 ea PO TID@0500,1000,1500 JW Stop: 07/06/25 11:29 Last Admin: 06/06/25 17:16 Dose: 2 ea Documented By: Admin: 06/06/25 11:41 Dose: 2 ea Documented By: TOBIAS Carbidopa/Levodopa (Carbidopa/Levodopa 36.25 Mg/145 Mg Cap) 3 ea PO HS JW Stop: 07/06/25 20:59 Last Admin: 06/06/25 22:04 Dose: Not Given Documented By: DARY Enoxaparin Sodium (Enoxaparin Inj 30 Mg/0.3 Ml Syr) 30 mg SQ QAM JW Stop: 07/06/25 10:59 Last Admin: 06/06/25 11:39 Dose: 30 mg Documented By: TOBIAS Fludrocortisone Acetate (Fludrocortisone Acetate 0.1 Mg Tab) 0.1 mg PO DAILY JW Stop: 07/06/25 08:59 Last Admin: 06/06/25 12:04 Dose: 0.1 mg Documented By: TOBIAS Metronidazole (Flagyl) 500 mg in 100 mls @ 100 mls/hr IV Q8H JW; Protocol Stop: 06/16/25 19:44 Last Infusion: 06/06/25 21:24 Dose: Infused Documented By: Admin: 06/06/25 20:23 Dose: 100 mls/hr Documented By: DARY Potassium Chloride/Sodium Chloride (Normal Saline W/20 Meq Kcl) 20 meq in 1,000 mls @ 60 mls/hr IV .[id number] ONE Stop: 06/07/25 12:22 Last Admin: 06/06/25 20:22 Dose: 60 mls/hr Documented By: DARY Multivitamins/Minerals (Cerovite Adv Formula Tab) 1 tab PO DAILY JW Stop: 07/06/25 10:59 Last Admin: 06/06/25 12:04 Dose: 1 tab Documented By: TOBIAS Pimavanserin (Pimavanserin Tartrate) 1 each PO HS JW Stop: 07/06/25 20:59 Last Admin: 06/06/25 22:04 Dose: Not Given Documented By: DUONG Prednisolone Acetate (Prednisolone Acetate 1% Op Susp 5 Ml Btl) 1 drops OPB TID JW Stop: 07/06/25 10:59 Last Admin: 06/06/25 22:03 Dose: Not Given Documented By: Admin: 06/06/25 13:26 Dose: 1 drops Documented By: Admin: 06/06/25 11:40 Dose: 1 drops Documented By: TOBIAS Vancomycin HCl (Vancomycin Hcl 125 Mg Cap) 125 mg PO Q6 JW Stop: 06/16/25 11:59 Last Admin: 06/06/25 18:16 Dose: Not Given Documented By: Admin: 06/06/25 11:40 Dose: 125 mg Documented By: TOBIAS Discontinued Medications Lactated Ringer's (Lr) 1,000 mls @ 125 mls/hr IV .Q8H JW Stop: 06/09/25 04:44 Last Infusion: 06/06/25 11:03 Dose: Infused Documented By: Infusion: 06/06/25 06:41 Dose: 0 mls/hr Documented By: abl Admin: 06/06/25 04:45 Dose: 125 mls/hr Documented By: abl Metronidazole (Flagyl) 500 mg in 100 mls @ 100 mls/hr IV NOW STA; Protocol Stop: 06/06/25 06:58 Last Infusion: 06/06/25 11:03 Dose: Infused Documented By: [facility] Admin: 06/06/25 06:56 Dose: 100 mls/hr Documented By: abl Potassium Chloride (K Glynn / Wtr) 10 meq in 100 mls @ 100 mls/hr IV Q1H JW Stop: 06/06/25 10:14 Last Infusion: 06/06/25 13:24 Dose: Infused Documented By: [facility] Admin: 06/06/25 12:24 Dose: 100 mls/hr Documented By: andre Infusion: 06/06/25 10:55 Dose: Infused Documented By: andre Admin: 06/06/25 09:55 Dose: 100 mls/hr Documented By: Infusion: 06/06/25 08:48 Dose: Infused Documented By: Admin: 06/06/25 07:48 Dose: 100 mls/hr Documented By: Infusion: 06/06/25 07:48 Dose: Infused Documented By: Admin: 06/06/25 06:51 Dose: 100 mls/hr Documented By: abl Sodium Chloride (Nss) 1,000 mls @ 75 mls/hr IV .[id number] ONE Stop: 06/06/25 19:27 Last Infusion: 06/06/25 20:10 Dose: Infused Documented By: Admin: 06/06/25 06:50 Dose: 75 mls/hr Documented By: abl Magnesium Sulfate/Dextrose (Magnesium Sulfate / D5w) 1 gm in 100 mls @ 50 mls/hr IV ONE ONE Stop: 06/06/25 08:10 Last Infusion: 06/06/25 11:03 Dose: Infused Documented By: [facility] Admin: 06/06/25 06:53 Dose: 50 mls/hr Documented By: abl Acetaminophen (Ofirmev) 1,000 mg in 100 mls @ 400 mls/hr IV NOW STA Stop: 06/06/25 07:20 Last Infusion: 06/06/25 10:55 Dose: Infused Documented By: [facility] Admin: 06/06/25 07:17 Dose: 400 mls/hr Documented By: ARS Acetaminophen 675 mg/ EMPTY (BAG) 67.5 mls @ 0 mls/hr IV ONE ONE; Protocol Stop: 06/06/25 20:01 Last Infusion: 06/06/25 20:50 Dose: Infused Documented By: [facility] Admin: 06/06/25 20:29 Dose: 400 mls/hr Documented By: DARY Ioversol (Optiray 320 100ml) 94 ml IV ONCE ONE Stop: 06/06/25 09:59 Last Admin: 06/06/25 09:58 Dose: 94 ml Documented By: JAYESH Ondansetron HCl (Ondansetron Inj 2 Mg/Ml 2 Ml Vial) 4 mg IV NOW STA Stop: 06/06/25 07:51 Last Admin: 06/06/25 18:16 Dose: Not Given Documented By: TOBIAS Potassium Chloride (Potassium Chloride Crtab 20 Meq Tabcr) 40 meq PO NOW STA Stop: 06/06/25 05:59 Last Admin: 06/06/25 07:17 Dose: Not Given Documented By: ARS Discharge Plan Visit Data Chief Complaint: Illness Stated Complaint: ILLNESS ED Provider: Lula Marcelino Discharge Problem: Generalized weakness, Diarrhea, Hypokalemia, C. difficile colitis Patient Disposition: Admitted As Inpatient Condition: Fair Discharge Instructions Interventions: ED Discharge Assessment Last Done: 06/06/25 09:46
[2025-06-06 05:22] LABS: Appearance Urine Clear (Clear); Bacteria Urine Automated None Seen (None Seen); Cast Urine Automated 0-2 /lpf (0-2); Epithelial Cell Urine Auto 0-2 /hpf (0-2); Glucose Urine UA Negative (Negative); WBC Urine Automated 0-5 /hpf (0-5)
[2025-06-06 05:30] LABS: Anion Gap 14 (3-11); Blood Urea Nitrogen 15 mg/dl (6-23); Calcium 9.1 mg/dl (8.6-10.3); Carbon Dioxide 23 mmol/L (21-32); Chloride 100 mmol/L (98-107); Creatinine Clr Calc Pharmacy 70.4 ml/min; Glucose 123 mg/dl (70-99(Fasting)); Potassium 3.1 mmol/L (3.5-5.1); Sodium 137 mmol/L (136-145)
[2025-06-06 05:32] LABS: Immature Granulocytes # (auto) 0.05 K/uL (0.01-0.20); Immature Granulocytes % (auto) 0.7 %; Polychromasia 1+; Toxic Vacuolation 1+
[2025-06-06 05:39] LABS: INR 1.1 (0.9-1.1); Prothrombin Time 11.7 Seconds (9.0-12.0)
[2025-06-06 05:42] LABS: Alanine Aminotransferase < 3 U/L (7-52); Albumin Globulin Ratio 1.5 (0.9-2); Albumin Level 4.1 gm/dl (3.4-5.0); Alkaline Phosphatase 71 U/L (34-104); Bilirubin,Total 0.4 mg/dl (0.2-1.0); Globulin 2.8 gm/dl (2.5-4.0); Lipase < 3 U/L (11-82); Magnesium 1.8 mg/dl (1.7-2.4); Total Protein 6.9 gm/dl (6.0-8.3)
[2025-06-06 05:45] LABS: Thyroid Stimulating Hormone 0.642 uIu/ml (0.300-4.500)
--- NOTE | 2025-06-06 06:08 | History & Physical Report ---
Date of Service June 06, 2025 Assessment & Plan (1) Hypotension: Plan: Assessment and plan below following discussion of case with ED provider and reviewing patient history/pertinent normal/abnormal diagnostic test results. Hypotension History orthostatic hypotension on fludrocortisone History of Parkinson's dementia C. difficile diarrhea No sepsis for now Initial occurrence Hypokalemia secondary to GI illness Recurrent falls Deconditioning Hyperglycemia rule out DM Admit to med/tele IVF Facilitate fludrocortisone IV Flagyl 1 dose now given inability to take oral meds as per family followed by oral vancomycin course CT abdomen pelvis re: abdominal pain Clear liquid for now Replace potassium Check hemoglobin A1c PT OT eval once medically stable DVT prophylaxis. Lovenox subcu if no bleed on CT imaging DNR as per patient prior directives as per family. Patient daughter requesting update providers. Ms. Viola Weaver, contact #[phone]. Text document was generated using [employer] voice recognition software. It may contain grammatical or spelling errors. Kindly contact undersigned for clarification of any documentation item in question. History of Present Illness Chief Complaint: Weakness, abdominal pain, diarrhea Primary Care Provider: Concepción Cline PA-C History obtained from patient, family, and records. Patient is a fair historian. Medical history significant for hypertension, orthostatic hypotension on fludrocortisone, SIADH as per records, Parkinson's dementia, GERD, recurrent falls, mood disorder. Recent confinement 3 weeks ago for multiple rib fractures secondary to ambulatory dysfunction. Rehab placement unsuccessful due to bed unavailability. Patient discharged home with home health/PT. Patient with watery diarrhea symptoms in the last week. No chest pain, no SOB. No abdominal pain at onset. Nausea with vomiting symptoms with food intake. Patient increasingly weak, unquantified weight loss at home. Patient seen at PCPs office 2 days ago. Outpatient stool C. difficile toxin B gene later noted to be positive. No prior history of C. difficile as per family. Patient unable to keep down oral vancomycin medication prescribed by PCP. Patient had achy upper abdominal pain today. Patient not any more confused than usual. Denies chest pain, SOB, cough. Patient brought to ER for evaluation. SBP 90s upon arrival at the ER. 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 Allergies Allergy/AdvReac Type Severity Reaction Status Date / Time No Known Allergies Allergy Verified 03/05/25 15:41 Home Medications Medication Instructions Recorded Confirmed Type Lactobacillus acidophilus 10 10,000 mmu cells PO DAILY 02/18/22 06/06/25 History billion cell capsule (Probiotic) magnesium 250 mg tablet 250 mg PO Q OTHER DAY 02/18/22 06/06/25 History multivitamin with minerals 1 tab PO DAILY 02/18/22 06/06/25 History omeprazole 40 mg capsule,delayed 40 mg PO DAILYBB 02/18/22 06/06/25 History release acetaminophen 500 mg tablet 1,000 mg PO TID PRN Pain 03/05/25 06/06/25 History bupropion HCl 300 mg 24 hr tablet, 300 mg PO QAM 03/05/25 06/06/25 History extended release carbidopa ER 36.25 mg-levodopa 145 2 cap PO TID 03/05/25 05/08/25 History mg capsule,extended release (Rytary) carbidopa ER 36.25 mg-levodopa 145 3 cap PO HS 03/05/25 05/08/25 History mg capsule,extended release (Rytary) docusate sodium 100 mg capsule 100 mg PO DAILY PRN Constipation 03/05/25 06/06/25 History (Colace) fludrocortisone 0.1 mg tablet 0.1 mg PO DAILY 03/05/25 06/06/25 History food supplemt, lactose-reduced 1 ea PO DAILY 03/05/25 06/06/25 History (Ensure oral liquid) triamcinolone acetonide 0.1 % 1 applic dental BID Apply to 03/05/25 06/06/25 History dental paste inside of cheek pimavanserin 34 mg capsule 34 mg PO HS 03/14/25 06/06/25 History (Nuplazid) melatonin 3 mg tablet 6 mg PO HS 05/08/25 05/08/25 History prednisolone acetate 1 % eye 1 drp OPB TID 05/08/25 06/06/25 History drops,suspension carbidopa ER 36.25 mg-levodopa 145 1 cap PO QID 06/06/25 06/06/25 History mg capsule,extended release (Rytary) food supplemt, lactose-reduced See Rx Instructions .Route .COMPLEX 06/06/25 06/06/25 History (Ensure oral liquid) ondansetron HCl 4 mg tablet 4 mg PO Q8H PRN nausea 06/06/25 06/06/25 History vancomycin 125 mg capsule 125 mg PO QID 06/06/25 06/06/25 History (Vancocin) Past Med/Surg History Problem List (Updated 06/06/25 @ 08:55 by JORDAN Crain) C. difficile diarrhea History of urinary retention Hypotension Hypokalemia (Acute) Diarrhea (Acute) Generalized weakness (Acute) Orthostatic hypotension Oropharyngeal dysphagia Recurrent falls Multiple rib fractures Ground-level fall Closed head injury (Acute) Rib fractures (Acute) Acute respiratory failure with hypoxia Fever Hypernatremia Encephalopathy acute Delirium due to another medical condition, acute, hyperactive Ambulatory dysfunction Unable to ambulate (Acute) Falls frequently (Acute) Weakness (Acute) Medical History SIADH (syndrome of inappropriate ADH production) Depression Sinus tachycardia Elevated BP without diagnosis of hypertension GERD (gastroesophageal reflux disease) Parkinson's disease Acute hyponatremia Weight loss Urinary symptom or sign Hyponatremia Surgical History History of esophagogastroduodenoscopy History of colonoscopy Family History Other Diabetes Heart disease Social History Smoking Status: Never smoker Second Hand Exposure: No; Do You Dip or Chew Tobacco: No; Hx Alcohol Use: Yes Alcohol type: hard liquor Hx Substance Use: No Preferred Language: Palestinian Communication Ability: Effective Adobe Cq Developer Required: No Beliefs That Will Affect Care: None marital status: / Current Living Situation: Alone current occupational status: retired Feels Safe at Home: Yes Assistive Devices: Cane, Walker and Wheelchair Review of Systems Review of Systems: As per HPI, all other systems reviewed and negative Physical Exam Physical Exam: GENERAL: Slightly uncomfortable, apathetic, no respiratory distress SKIN: Normal color, warm HEENT: [place] palpebral conjunctivae, no ptosis, dry buccal mucosa NECK : Supple, no tenderness CHEST : Decreased breath sounds, no tenderness HEART : Tachycardic, no obvious murmurs ABDOMEN: Some distention, central abdominal tenderness EXTREMITIES : No LE swelling/tenderness, palpable pulses, no other conspicuous deformities noted NEUROLOGIC : Oriented to day and year, no facial asymmetry, gait and stance not assessed Results & Data Results & Data Vital Signs (Past 12 Hours) Vital Signs Temp Pulse Pulse Resp BP BP Pulse Ox 06/06/25 05:16 101 H 06/06/25 04:42 37 C 101 H 18 99/54 L 96 06/06/25 04:42 37 C 101 H 16 99/54 L 97 O2 Del Method 06/06/25 05:16 06/06/25 04:42 Room Air 06/06/25 04:42 Room Air Laboratory Results Laboratory Results WBC 7.48 K/ul (4.8-10.8) 06/06/25 04:37 RBC 3.90 M/uL (4.20-5.40) L 06/06/25 04:37 Hgb 12.1 g/dL (12.0-16.0) 06/06/25 04:37 Hct 35.1 % (37.0-47.0) L 06/06/25 04:37 MCV 90.0 fL (80.0-100.0) 06/06/25 04:37 MCH 31.0 pg (25.0-34.0) 06/06/25 04:37 MCHC 34.5 g/dL (32.0-36.0) 06/06/25 04:37 RDW Std Deviation 46.6 fL (36.4-46.3) H 06/06/25 04:37 RDW Coeff of Jovani 14.3 % (11.5-14.5) 06/06/25 04:37 Plt Count 314 K/uL (130-400) 06/06/25 04:37 MPV 9.7 fL (9.4-12.4) 06/06/25 04:37 Immature Gran % (Auto) 0.7 % 06/06/25 04:37 Neut % (Auto) 70.4 % 06/06/25 04:37 Lymph % (Auto) 6.6 % 06/06/25 04:37 Harmon % (Auto) 21.1 % 06/06/25 04:37 Eos % (Auto) 0.1 % 06/06/25 04:37 Baso % (Auto) 1.1 % 06/06/25 04:37 Neut # (Auto) 5.27 K/uL (1.40-6.50) 06/06/25 04:37 Lymph # (Auto) 0.49 K/uL (1.20-3.40) L 06/06/25 04:37 Harmon # (Auto) 1.58 K/uL (0.11-0.59) H 06/06/25 04:37 Eos # (Auto) 0.01 K/uL (0.00-0.50) 06/06/25 04:37 Baso # (Auto) 0.08 K/uL (0.00-0.20) 06/06/25 04:37 Immature Gran # (Auto) 0.05 K/uL (0.01-0.20) 06/06/25 04:37 Toxic Vacuolation 1+ 06/06/25 04:37 Polychromasia 1+ 06/06/25 04:37 PT 11.7 Seconds (9.0-12.0) 06/06/25 04:37 INR 1.1 (0.9-1.1) 06/06/25 04:37 Sodium 137 mmol/L (136-145) 06/06/25 04:37 Potassium 3.1 mmol/L (3.5-5.1) L 06/06/25 04:37 Chloride 100 mmol/L (98-107) 06/06/25 04:37 Carbon Dioxide 23 mmol/L (21-32) 06/06/25 04:37 Anion Gap 14 (3-11) H 06/06/25 04:37 BUN 15 mg/dl (6-23) 06/06/25 04:37 Creatinine 0.48 mg/dl (0.6-1.2) L 06/06/25 04:37 Est Cr Clr Drug Dosing 70.4 ml/min 06/06/25 04:37 eGFR 101.83 06/06/25 04:37 BUN/Creatinine Ratio 31.3 (10-20) H 06/06/25 04:37 Glucose 123 mg/dl (70-99(Fasting)) H 06/06/25 04:37 Lactate 0.9 mmol/L (0.4-2.0) 06/06/25 04:45 Calcium 9.1 mg/dl (8.6-10.3) 06/06/25 04:37 Magnesium 1.8 mg/dl (1.7-2.4) 06/06/25 04:37 Total Bilirubin 0.4 mg/dl (0.2-1.0) 06/06/25 04:37 AST 7 U/L (13-39) L 06/06/25 04:37 ALT < 3 U/L (7-52) L 06/06/25 04:37 Alkaline Phosphatase 71 U/L (34-104) 06/06/25 04:37 Troponin I High Sens 5.5 pg/ml (0-14) 06/06/25 04:37 Total Protein 6.9 gm/dl (6.0-8.3) 06/06/25 04:37 Albumin 4.1 gm/dl (3.4-5.0) 06/06/25 04:37 Globulin 2.8 gm/dl (2.5-4.0) 06/06/25 04:37 Albumin/Globulin Ratio 1.5 (0.9-2) 06/06/25 04:37 Lipase < 3 U/L (11-82) L 06/06/25 04:37 TSH 0.642 uIu/ml (0.300-4.500) 06/06/25 04:37 Urine Color Dark Yellow 06/06/25 04:55 Urine Appearance Clear (Clear) 06/06/25 04:55 Urine pH 6.0 (4.5-7.5) 06/06/25 04:55 Ur Specific [place] 1.032 (1.000-1.030) H 06/06/25 04:55 Urine Protein 2+ (Negative) H 06/06/25 04:55 Urine Glucose (UA) Negative (Negative) 06/06/25 04:55 Urine Ketones 4+ (Negative) H 06/06/25 04:55 Urine Blood Negative (Negative) 06/06/25 04:55 Urine Nitrite Negative (Negative) 06/06/25 04:55 Urine Bilirubin Negative (Negative) 06/06/25 04:55 Urine Urobilinogen Negative (Negative) 06/06/25 04:55 Ur Leukocyte Esterase Trace (Negative) H 06/06/25 04:55 Urine WBC (Auto) 0-5 /hpf (0-5) 06/06/25 04:55 Urine RBC (Auto) 11-20 /hpf (0-2) H 06/06/25 04:55 U Hyaline Cast (Auto) 0-2 /lpf (0-2) 06/06/25 04:55 U Epithel Cells (Auto) 0-2 /hpf (0-2) 06/06/25 04:55 Urine Bacteria (Auto) None Seen (None Seen) 06/06/25 04:55 Urine Comment 06/06/25 04:55 Diagnostic Findings EKG as per my interpretation :Rate 105, sinus tachycardia, normal axis, nonspecific T wave abnormalities
[2025-06-06] MEDS: SODIUM CHLORIDE 0.9% 1,000 ML IV ONE (06:50)
[2025-06-06] MEDS: POTASSIUM CHLORIDE / WTR 10 MEQ/100 ML PLCT IV SCH (06:51)
[2025-06-06] MEDS: MAGNESIUM SULFATE / D5W 1 GM/100 ML BAG IV ONE (06:53)
[2025-06-06] MEDS: metroNIDAZOLE 500 MG/100 ML BAG IV STA (06:56)
[2025-06-06] MEDS: POTASSIUM CHLORIDE CRTAB 20 MEQ TABCR PO STA (07:17)
[2025-06-06] MEDS: ACETAMINOPHEN 1,000 MG/100 ML VIAL IV STA (07:17)
[2025-06-06] MEDS ORDERED: ACETAMINOPHEN 325 MG TAB PO PRN (07:33)
--- NOTE | 2025-06-06 07:41 | XRay Report ---
EXAM: XR chest 1V portable CLINICAL HISTORY: Cough TECHNIQUE: An X-ray image of the chest is obtained in AP projection. COMPARISON: 05/08/2025 CT. FINDINGS: Pulmonary Parenchyma: Minimally raised left hemidiaphragm with blunting of left costophrenic recess. Few small atelectatic bands seen in the left lower zone. No evidence of lung consolidation/pulmonary nodule/opacity seen. Right costophrenic recess is clear of effusion.. Heart and Mediastinum: Heart size and shape are normal. No mediastinal widening or masses. No hilar or mediastinal lymphadenopathy. Bony Thorax: Barely perceptible fracture of left 9th and 10th ribs and right 11th rib. Degenerative thoracic spondylosis is seen in the form of osteophytosis, endplate sclerosis and multilevel reduced disc heights. Bony thorax appears intact without deformities. Soft Tissues: Soft tissues overlying the chest wall are unremarkable. IMPRESSION: 1. Interval stable, raised left hemidiaphragm with blunting of left costophrenic angle. Pleural thickening. 2. Comparing the previous CT chest dated 05/08/2025 the findings remain stable. 3. Follow-up x-ray may be done if clinically warranted. Electronically signed by Mick Angel 06-06-2025 07:41 AM
[2025-06-06] MEDS ORDERED: NON-FORMULARY MEDICATION (Food Supplemt, Lactose-Reduced [Ensure] Liquid) SCH (08:15)
[2025-06-06] MEDS ORDERED: DOCUSATE SODIUM 100 MG CAP PO PRN (08:15)
--- NOTE | 2025-06-06 08:56 | Hospitalist Progress Note ---
<Statement entered by Adrian Rasheed DO - 06/06/25 14:38> First episode of c. diff following recent abx use Reviewed CT, which showed colitis OP c. diff testing positive. consistent with c. diff colitis Continue PO vanc x 10 days No indication for flagyl at this time. low suspicion for fulminant disease/toxic megacolon Date of Service June 06, 2025 Assessment & Plan (1) C. difficile diarrhea: (2) Hypokalemia: (3) Orthostatic hypotension: (4) SIADH (syndrome of inappropriate ADH production): (5) History of urinary retention: (6) Hypotension: Plan: Patient is a 69-year-old female with past medical history significant for hypothyroidism, SIADH, HTN, orthostatic hypotension, chronic diarrhea, protein- calorie malnutrition, GERD, RLS, Parkinson's disease with dyskinesia and fluctuating manifestations, GREGORIO, depression and frequent falls who presented to the ED with abdominal pain, diarrhea, anorexia, weakness, falls x 1 week. Family report patient has had diarrhea for over a week and was seen by PCP yesterday, started on Vanco yesterday for CDiff. Abdominal pain is crampy with nausea. Has vomited twice yesterday following Vanco, but otherwise has had nausea and no appetite. Also reported headache. C. difficile diarrhea Presented with nausea and diarrhea for more than 7 days at PCP 06/04; recent Cipro for UTI in early April; chronic diarrhea since abx completion Positive C Diff toxin B gene DNA on outpatient workup on 06/05; started on oral Vanco yesterday; unable to tolerate Presents today with weakness, minimal oral intake and diarrhea Clinically dry-> IVF started in ED No leukocytosis or evidence of sepsis for now Flagyl x 1 here d/t nausea with oral intake Continue Vanco Q6H Clear diet Hypokalemia secondary to GI illness Potassium 3.1 in ED and replaced with KCL 40 meq-> will trend and replace as needed As per outside record, patient with unintentional weight loss from illness, poor oral intake due to nausea and diarrhea; Current dietary intake includes Ensure once a day and limited solid food intake.-> Nutrition consult needed prior to discharge History orthostatic hypotension 2/2 SIADH On fludrocortisone Na+ 137 here Renal functioning stable Hyperglycemia Glucose 123 on admission; no diabetes Will check A1C with AM labs History of Parkinson's dementia Recurrent falls at home 2/2 dyskinesia and fluctuating symptoms also with right eye vision impairment; recent amitriptyline d/c due to corneal edema PT OT eval once medically stable Continue carbidopa/levadopa per home routine; patient does have hallucinations at times and was started on Nuplazid Follows Dr. Hercules for ongoing management Patient daughter requesting update providers. Ms. Viola Weaver, contact #[phone]. DVT Ppx:Lovenox Code status: DNR/DNI PCP: Concepción Cline PA-C Dispo: Admit Patient seen in collaboration with Dr. Rasheed. Please see addendum.I spent a total of 35 minutes coordinating, documenting and providing care for this patient excluding time spent in the performance of separately billed services or time spent by another provider/QHP. Subjective Patient is a 69-year-old female with past medical history significant for hypothyroidism, SIADH, HTN, orthostatic hypotension, chronic diarrhea, protein- calorie malnutrition, GERD, RLS, Parkinson's disease with dyskinesia and fluctuating manifestations, GREGORIO, depression and frequent falls who presented to the ED with abdominal pain, diarrhea, anorexia, weakness, falls x 1 week. Family report patient has had diarrhea for over a week and was seen by PCP yesterday, started on Vanco yesterday for CDiff. Abdominal pain is crampy with nausea. Has vomited twice yesterday following Vanco, but otherwise has had nausea and no appetite. Also reported headache. Today reporting chills and states possible urinary symptoms. UA today showing high spec grav, protein, ketones, trace leuko esterase. Urine culture negative. Temp 37. Denies fever, seizures, night sweats, chest pain, breathing difficulty, cough, URI symptoms, numbness/tingling, swelling, joint pain, skin rashes/changes. Patient was admitted [facility] 05/08-05/16 for multiple rib fractures 2/2 longstanding Parkinson's disease with motor fluctuations and recurrent falls; also with vision impairment to right eye at baseline and most likely contributing to recurrent falls at home. She was discharged to home with family support and in- home rehab services with [facility]. Previously, admitted 03/05/25-03/14/25 for weakness and ambulatory dysfunction in the setting of longstanding Parkinson's disease with motor fluctuations. Hospitalization complicated by acute metabolic encephalopathy with fever. Negative infectious workup. Was discharged to [facility] with transition to home on 04/05 with family support. Was treated for UTI sometime between hospital confinements with ciprofloxacin. Patient seen and examined at bedside in the ED. Family at bedside and assisted with history of present illness as patient was mildly lethargic and confused. Review of Systems Review of Systems: All systems reviewed & are unremarkable except as noted in Subjective Physical Exam Physical Exam: VITALS: Reviewed. WEIGHT/BMI reviewed. GEN: Healthy appearing, well-developed, NAD. PSYCH: Mildly confused, lethargic, oriented x 2. Normal memory, mood, and affect. HEENT -Head: NC/AT; -Eyes: PERRL, EOMI. No discharge or redn ess; -Ears: External ears are normal. -Nose: Normal nares. -Mouth and throat: MMM. Normal gums, muc nita, palate,. Good dentition. NECK: Supple, with no masses. CV: RRR, no m/r/g. LUNGS: CTAB, no w/r/c. ABD: Soft, NT/ND, NBS, no masses or organomegaly. : N/A SKIN: Warm, well perfused. No skin rashes or abnormal lesions. MSK:DIANE. Strength 3/5 BLE. EXT: No clubbing, cyanosis, or edema. NEURO: CN II-XII grossly intact. Speech clear. No focal deficits. Results & Data Results & Data Vital Signs (Past 12 Hours) Vital Signs Temp Pulse Pulse Resp BP BP Pulse Ox 06/06/25 06:39 104 H 20 167/88 H 97 06/06/25 05:16 101 H 06/06/25 04:42 37 C 101 H 18 99/54 L 96 06/06/25 04:42 37 C 101 H 16 99/54 L 97 O2 Del Method 06/06/25 06:39 Room Air 06/06/25 05:16 06/06/25 04:42 Room Air 06/06/25 04:42 Room Air Laboratory Results Short CBC 06/06/25 Range/Units 04:37 WBC 7.48 (4.8-10.8) K/ul Hgb 12.1 (12.0-16.0) g/dL Hct 35.1 L (37.0-47.0) % Plt Count 314 (130-400) K/uL BMP 06/06/25 04:37 Sodium 137 Potassium 3.1 L Chloride 100 Carbon Dioxide 23 BUN 15 Creatinine 0.48 L Glucose 123 H Calcium 9.1 Liver Function 06/06/25 Range/Units 04:37 Total Bilirubin 0.4 (0.2-1.0) mg/dl AST 7 L (13-39) U/L ALT < 3 L (7-52) U/L Alkaline Phosphatase 71 (34-104) U/L Albumin 4.1 (3.4-5.0) gm/dl Urine 06/06/25 Range/Units 04:55 Urine Color Dark Yellow Urine Appearance Clear (Clear) Urine pH 6.0 (4.5-7.5) Ur Specific [place] 1.032 H (1.000-1.030) Urine Protein 2+ H (Negative) Urine Glucose (UA) Negative (Negative) Diagnostic Findings Chest X-Ray 06/06/25 06:06 EXAM: XR chest 1V portable CLINICAL HISTORY: Cough TECHNIQUE: An X-ray image of the chest is obtained in AP projection. COMPARISON: 05/08/2025 CT. FINDINGS: Pulmonary Parenchyma: Minimally raised left hemidiaphragm with blunting of left costophrenic recess. Few small atelectatic bands seen in the left lower zone. No evidence of lung consolidation/pulmonary nodule/opacity seen. Right costophrenic recess is clear of effusion.. Heart and Mediastinum: Heart size and shape are normal. No mediastinal widening or masses. No hilar or mediastinal lymphadenopathy. Bony Thorax: Barely perceptible fracture of left 9th and 10th ribs and right 11th rib. Degenerative thoracic spondylosis is seen in the form of osteophytosis, endplate sclerosis and multilevel reduced disc heights. Bony thorax appears intact without deformities. Soft Tissues: Soft tissues overlying the chest wall are unremarkable. IMPRESSION: 1. Interval stable, raised left hemidiaphragm with blunting of left costophrenic angle. Pleural thickening. 2. Comparing the previous CT chest dated 05/08/2025 the findings remain stable. 3. Follow-up x-ray may be done if clinically warranted. Electronically signed by Mick Angel 06-06-2025 07:41 AM Abdomen/Pelvis CT 06/06/25 07:06 CT SCAN OF THE ABDOMEN AND PELVIS WITH IV CONTRAST CLINICAL HISTORY: Generalized abdominal pain. COMPARISON STUDY: Abdominal CT dated 05/08/2025. TECHNIQUE: Following the IV administration of 94 cc of Optiray 320, CT scan of the abdomen and pelvis is performed from the lung bases to the proximal femora. Images are reviewed in the axial, sagittal, and coronal planes. IV contrast was administered without complication. A dose lowering technique was utilized adhering to the principles of ALARA. There is streak artifact from the right arm which could not be elevated above the abdomen. There is also motion artifact. CT DOSE: 365.57 mGy.cm FINDINGS: Lung bases: The heart is mildly enlarged and without pericardial effusion. There is coronary artery atherosclerosis. There is bibasilar scarring/atelectasis. No airspace consolidation or pleural effusion is identified. Liver: The contrast-enhanced liver is normal in size, contour, and attenuation. There is mild central intrahepatic biliary ductal dilatation. The hepatic veins and portal veins are patent. Gallbladder: The gallbladder is distended but otherwise normal as imaged. Spleen: Normal in size and attenuation. Pancreas: Unremarkable. Adrenal glands: Unremarkable. Kidneys: The contrast enhanced kidneys are normal in size and without hydronephrosis. The kidneys enhance symmetrically. A 10 mm left renal cyst is unchanged. Abdominal vasculature: The abdominal aorta is normal in course and caliber noting mild atherosclerotic calcification. Bowel: There is marked wall thickening and edema seen throughout the colon. This is greatest involving the left colon, and there is surrounding infiltration and fluid. The appearance is consistent with a nonspecific pancolitis. No bowel obstruction is seen. The appendix is normal as visualized. Peritoneum: No intraperitoneal free air is identified. There is a small volume o f pelvic ascites. Lymphadenopathy: None. Pelvic viscera: The bladder is mildly distended but otherwise normal as imaged. The uterus and adnexa are normal as visualized. Skeletal structures: The skeletal structures are osteopenic. There is moderate lumbosacral spondylosis. No lytic or blastic lesions are seen. There are subacute/healing left anterolateral rib fractures, as well as subacute/healing bilateral posterior rib fractures and a subacute fracture of the right transverse process of T10. IMPRESSION: 1. Findings are consistent with a nonspecific pancolitis. This is likely on an infectious or inflammatory basis and clinical correlation will be required. 2. Small volume pelvic ascites. 3. There are subcutaneous/healing bilateral rib fractures, as well as a healing right transverse process fracture of T10. 4. The gallbladder is significantly distended but otherwise normal as imaged. Correlate with clinical and laboratory findings. 5. Cardiomegaly noting coronary artery atherosclerosis. 6. Additional findings as above. ACT 112: Negative or not required by law. Electronically signed by: Osvaldo Tate M.D. 06/06/2025 10:18 AM
[2025-06-06] MEDS: OPTIRAY 320 100ml IV ONE (09:58)
--- NOTE | 2025-06-06 10:21 | CT Scan Report ---
CT SCAN OF THE ABDOMEN AND PELVIS WITH IV CONTRAST CLINICAL HISTORY: Generalized abdominal pain. COMPARISON STUDY: Abdominal CT dated 05/08/2025. TECHNIQUE: Following the IV administration of 94 cc of Optiray 320, CT scan of the abdomen and pelvi s is performed from the lung bases to the proximal femora. Images are reviewed in the axial, sagittal , and coronal planes. IV contrast was administered without complication. A dose lowering technique wa s utilized adhering to the principles of ALARA. There is streak artifact from the right arm which cou ld not be elevated above the abdomen. There is also motion artifact. CT DOSE: 365.57 mGy.cm FINDINGS: Lung bases: The heart is mildly enlarged and without pericardial effusion. There is coronary artery a therosclerosis. There is bibasilar scarring/atelectasis. No airspace consolidation or pleural effusio n is identified. Liver: The contrast-enhanced liver is normal in size, contour, and attenuation. There is mild central intrahepatic biliary ductal dilatation. The hepatic veins and portal veins are patent. Gallbladder: The gallbladder is distended but otherwise normal as imaged. Spleen: Normal in size and attenuation. Pancreas: Unremarkable. Adrenal glands: Unremarkable. Kidneys: The contrast enhanced kidneys are normal in size and without hydronephrosis. The kidneys enh ance symmetrically. A 10 mm left renal cyst is unchanged. Abdominal vasculature: The abdominal aorta is normal in course and caliber noting mild atheroscleroti c calcification. Bowel: There is marked wall thickening and edema seen throughout the colon. This is greatest involvin g the left colon, and there is surrounding infiltration and fluid. The appearance is consistent with a nonspecific pancolitis. No bowel obstruction is seen. The appendix is normal as visualized. Peritoneum: No intraperitoneal free air is identified. There is a small volume of pelvic ascites. Lymphadenopathy: None. Pelvic viscera: The bladder is mildly distended but otherwise normal as imaged. The uterus and adnexa are normal as visualized. Skeletal structures: The skeletal structures are osteopenic. There is moderate lumbosacral spondylosi s. No lytic or blastic lesions are seen. There are subacute/healing left anterolateral rib fractures, as well as subacute/healing bilateral posterior rib fractures and a subacute fracture of the right t ransverse process of T10. IMPRESSION: 1. Findings are consistent with a nonspecific pancolitis. This is likely on an infectious or inflamma tory basis and clinical correlation will be required. 2. Small volume pelvic ascites. 3. There are subcutaneous/healing bilateral rib fractures, as well as a healing right transverse proc ess fracture of T10. 4. The gallbladder is significantly distended but otherwise normal as imaged. Correlate with clinical and laboratory findings. 5. Cardiomegaly noting coronary artery atherosclerosis. 6. Additional findings as above. ACT 112: Negative or not required by law. Electronically signed by: Osvaldo Tate M.D. 06/06/2025 10:18 AM
[2025-06-06] MEDS: ENOXAPARIN INJ 30 MG/0.3 ML SYR SQ SCH (11:39)
[2025-06-06] MEDS: prednisoLONE acetate 1% OP SUSP 5 ML BTL OPB SCH (11:40)
[2025-06-06] MEDS: VANCOMYCIN HCL 125 MG CAP PO SCH (11:40)
[2025-06-06] MEDS: LEVODOPA PO SCH ×2 (11:41→21:58)
[2025-06-06] MEDS: CARBIDOPA PO SCH ×2 (11:41→21:58)
--- NOTE | 2025-06-06 11:56 | Electrocardiogram Report ---
Test Reason : Blood Pressure : */* mmHG Vent. Rate : 106 BPM Atrial Rate : 106 BPM P-R Int : 134 ms QRS Dur : 88 ms QT Int : 352 ms P-R-T Axes : 30 -5 133 degrees QTcB Int : 467 ms Sinus tachycardia Nonspecific ST and T wave abnormality Abnormal ECG When compared with ECG of 08-May-2025 05:24, Nonspecific T wave abnormality now evident in Inferior leads Nonspecific T wave abnormality, worse in Lateral leads Confirmed by Jose A Chauhan ([id number]) on 06/06/2025 11:55:37 AM Referred By: REFERRED SELF Confirmed By: Jose A Chauhan
[2025-06-06] MEDS: CEROVITE ADV FORMULA TAB PO SCH (12:04)
[2025-06-06] MEDS: FLUDROCORTISONE ACETATE 0.1 MG TAB PO SCH (12:04)
[2025-06-06] MEDS: ONDANSETRON INJ 2 MG/ML 2 ML VIAL IV STA (18:16)
[2025-06-06] MEDS ORDERED: ACETAMINOPHEN 1,000 MG/100 ML VIAL IV STA (19:43)
[2025-06-06 20:14] LABS: Hematocrit (blood only) 32.6 % (37.0-47.0); Hemoglobin 11.0 g/dL (12.0-16.0); Mean Corpuscular Hemoglobin 30.6 pg (25.0-34.0); Mean Corpuscular Volume 90.6 fL (80.0-100.0); Platelet Count 282 K/uL (130-400); RDW Standard Deviation 47.7 fL (36.4-46.3); Red Blood Count 3.60 M/uL (4.20-5.40); White Blood Count 6.60 K/ul (4.8-10.8)
[2025-06-06] MEDS: NSS + 20MEQ KCL 20 MEQ/1,000 ML BAG IV ONE (20:22)
[2025-06-06] MEDS: metroNIDAZOLE 500 MG/100 ML BAG IV SCH (20:23)
[2025-06-06] MEDS: ACETAMINOPHEN 10MG/ML Custom 675 MG in EMPTY BAG 0 ML IV ONE (20:29)
[2025-06-06] MEDS: PIMAVANSERIN TARTRATE PO SCH (21:59)
--- NOTE | 2025-06-06 22:12 | Communication Note ---
Date of Service: June 06, 2025 Patient refusing oral medications (vancomycin, Parkinson's medications) as per RN. Patient not hungry as per RN. IV Flagyl initiated earlier by daytime provider due to inability to take oral vancomycin. Consider Palliative care consultation in a.m. to review goals of care with patient/family if patient continues to refuse to take medications by mouth.
[2025-06-07] MEDS: PROMETHAZINE 6.25 MG/50.25 ML BAG IV PRN (04:40)
[2025-06-07 07:14] LABS: Anion Gap 10.0 (3-11); Blood Urea Nitrogen 11.0 mg/dl (6-23); Calcium 8.2 mg/dl (8.6-10.3); Carbon Dioxide 23.0 mmol/L (21-32); Chloride 105.0 mmol/L (98-107); Creatinine Clr Calc Pharmacy 119.0 ml/min; Glucose 111.0 mg/dl (70-99(Fasting)); Potassium 3.0 mmol/L (3.5-5.1); Sodium 138.0 mmol/L (136-145)
[2025-06-07 07:22] LABS: Hematocrit (blood only) 33.2 % (37.0-47.0); Hemoglobin 11.2 g/dL (12.0-16.0); Mean Corpuscular Hemoglobin 30.4 pg (25.0-34.0); Mean Corpuscular Volume 90.0 fL (80.0-100.0); Platelet Count 283 K/uL (130-400); RDW Standard Deviation 45.8 fL (36.4-46.3); Red Blood Count 3.69 M/uL (4.20-5.40); White Blood Count 6.82 K/ul (4.8-10.8)
[2025-06-07 07:23] LABS: Dohle Bodies 1+; Immature Granulocytes # (auto) 0.12 K/uL (0.01-0.20); Immature Granulocytes % (auto) 1.8 %; Toxic Vacuolation 1+
[2025-06-07 07:56] LABS: Hemoglobin A1C 5.1 % (4.5-5.6)
--- NOTE | 2025-06-07 08:01 | Hospitalist Progress Note ---
<Statement entered by Adrian Rasheed, - 06/07/25 18:47> Seen and examined Agree with SEBAS I spent a total of 23 minutes coordinating, documenting, and providing care for this patient excluding time spent in the performance of separately billed services. This included personally reviewing all current laboratories and imaging studies, medical reconciliation, outpatient chart review and discussion with specialists She continues to refuse some oral meds. risks discussed with patient who understands. Permissive HTN due to autonomic dysfunction Date of Service June 07, 2025 Assessment & Plan (1) C. difficile diarrhea: (2) Hypokalemia: (3) Orthostatic hypotension: (4) SIADH (syndrome of inappropriate ADH production): (5) History of urinary retention: (6) Hypotension: Plan: Patient is a 69-year-old female with past medical history significant for hypothyroidism, SIADH, HTN, orthostatic hypotension, chronic diarrhea, protein- calorie malnutrition, GERD, RLS, Parkinson's disease with dyskinesia and fluctuating manifestations, GREGORIO, depression and frequent falls who presented to the ED with abdominal pain, diarrhea, anorexia, weakness, falls x 1 week. Family report patient has had diarrhea for over a week and was seen by PCP yesterday, started on Vanco yesterday for C Diff. Abdominal pain is crampy with nausea. Has vomited twice yesterday following Vanco, but otherwise has had nausea and no appetite. Also reported headache. Patient was admitted [facility] 05/08-05/16 for multiple rib fractures 2/2 longstanding Parkinson's disease with motor fluctuations and recurrent falls; also with vision impairment to right eye at baseline and most likely contributing to recurrent falls at home. She was discharged to home with family support and in- home rehab services with [facility]. Previously, admitted 03/05/25-03/14/25 for weakness and ambulatory dysfunction in the setting of longstanding Parkinson's disease with motor fluctuations. Hospitalization complicated by acute metabolic encephalopathy with fever. Negative infectious workup. Was discharged to [facility] with transition to home on 04/05 with family support. Was treated for UTI sometime between hospital confinements with ciprofloxacin. C. difficile diarrhea Presented with nausea and diarrhea for more than 7 days at PCP 06/04; recent Cipro for UTI in early April; chronic diarrhea since abx completion Positive C Diff toxin B gene DNA on outpatient workup on 06/05; started on oral Vanco yesterday; unable to tolerate at home-> Flagyl given x 1 in ED; attempted to give oral Vanco inpatient, but patient not tolerating oral meds-> Will continue with IV Flagyl for C Diff management and attempt oral Vanco tomorrow Clinically dry-> IVF now No leukocytosis or evidence of sepsis for now Speech eval at bedside todayand discussed via [place] text-> gagging noted with jello and ice cream, swallowing clears okay; recommend clear diet and advance when clinically improved Hypokalemia secondary to GI illness Potassium low 3.1-> 3.0 today replaced w/ K-Glynn x 2 IV fluids with 20 meq KCL today As per outside record, patient with unintentional weight loss from illness, poor oral intake due to nausea and diarrhea; Current dietary intake includes Ensure once a day and limited solid food intake.-> Nutrition consult needed prior to discharge Hypertension Permissible hypertension , BP 178/94, suspect autonomic dysfunction 2/2 Parkinson's disease Hydralazine given x 1 today; patient on tele monitoring History orthostatic hypotension 2/2 SIADH On fludrocortisone Na+ 137 here Renal functioning stable Hyperglycemia-> improved Glucose 123 on admission; no diabetes; Glucose 111 today A1C 5.1% today History of Parkinson's dementia Recurrent falls at home 2/2 dyskinesia and fluctuating symptoms also with right eye vision impairment; recent amitriptyline d/c due to corneal edema PT OT eval once medically stable Continue carbidopa/levadopa per home routine; patient does have hallucinations at times and was started on Nuplazid Follows Dr. Hercules for ongoing management Patient daughter requesting update providers. Ms. Viola Weaver, contact #[phone]. DVT Ppx:Lovenox Code status: DNR/DNI PCP: Concepción Cline PA-C Dispo: Will need rehab vs SNF at discharge; PT eval pending Patient seen in collaboration with Dr. Rasheed. Please see addendum.I spent a total of 45 minutes coordinating, documenting and providing care for this patient excluding time spent in the performance of separately billed services or time spent by another provider/QHP. Admission and Anticipated Discharge Date Admission Date: June 06, 2025 Subjective Patient seen and examined at bedside. Reporting headache, nausea, and belching this morning. She thinks she feels a little better today, but is still weak. As per overnight records, patient spiked a fever yesterday evening to 38C, blood and urine cultures pending. Refusing oral meds, despite nausea medication. Transitioned to IV Flagyl for C Diff management. Denies dizziness, chest pain, palpitations, breathing difficulty, cough, URI symptoms, numbness/tingling, swelling, joint pain, skin rashes/changes. Review of Systems Review of Systems: All systems reviewed & are unremarkable except as noted in Subjective Physical Exam Physical Exam: VITALS: Reviewed. WEIGHT/BMI reviewed. GEN: Healthy appearing, well-developed, NAD. PSYCH: Mildly confused, lethargic, oriented x 2. Normal memory, mood, and affect. HEENT -Head: NC/AT; -Eyes: PERRL, EOMI. No discharge or redn ess; -Ears: External ears are normal. -Nose: Normal nares. -Mouth and throat: MMM. Normal gums, muc nita, palate,. Good dentition. NECK: Supple, with no masses. CV: RRR, no m/r/g. LUNGS: CTAB, no w/r/c. ABD: Soft, NT/ND, NBS, no masses or organomegaly. : N/A SKIN: Warm, well perfused. No skin rashes or abnormal lesions. MSK:DIANE. Strength 2/5 BLE. EXT: No clubbing, cyanosis, or edema. NEURO: CN II-XII grossly intact. Speech clear. No focal deficits. Results & Data Results & Data Vital Signs (Past 12 Hours) Vital Signs Temp Pulse Pulse Resp BP Pulse Ox O2 Del Method 06/07/25 04:12 37 C 102 H 16 177/93 H 96 Room Air 06/07/25 00:05 36.6 C 94 H 18 146/75 H 94 Room Air 06/06/25 22:15 99 H Laboratory Results Short CBC 06/06/25 06/07/25 Range/Units 19:43 06:30 WBC 6.60 6.82 (4.8-10.8) K/ul Hgb 11.0 L 11.2 L (12.0-16.0) g/dL Hct 32.6 L 33.2 L (37.0-47.0) % Plt Count 282 283 (130-400) K/uL BMP 06/07/25 06:30 Sodium 138 Potassium 3.0 L Chloride 105 Carbon Dioxide 23 BUN 11 Creatinine 0.30 L Glucose 111 H Calcium 8.2 L
[2025-06-07] MEDS: ADVANCED PROBIOTIC 625 MG CAPSULE PO SCH (08:39)
[2025-06-07] MEDS: POTASSIUM CHLORIDE / WTR 10 MEQ/100 ML PLCT IV SCH (08:45)
[2025-06-08 07:39] LABS: Anion Gap 12.0 (3-11); Blood Urea Nitrogen 7.0 mg/dl (6-23); Calcium 8.6 mg/dl (8.6-10.3); Carbon Dioxide 24.0 mmol/L (21-32); Chloride 103.0 mmol/L (98-107); Creatinine Clr Calc Pharmacy 105.0 ml/min; Glucose 74.0 mg/dl (70-99(Fasting)); Potassium 3.0 mmol/L (3.5-5.1); Sodium 139.0 mmol/L (136-145)
--- NOTE | 2025-06-08 10:11 | Hospitalist Progress Note ---
<Statement entered by Adrian Rasheed DO - 06/08/25 14:48> Patient seen and examined Agree with SEBAS I spent a total of 21 minutes coordinating, documenting, and providing care for this patient excluding time spent in the performance of separately billed services. This included personally reviewing all current laboratories and imaging studies, medical reconciliation, outpatient chart review and discussion with specialists Date of Service June 08, 2025 Assessment & Plan (1) C. difficile diarrhea: (2) Hypokalemia: (3) Orthostatic hypotension: (4) SIADH (syndrome of inappropriate ADH production): (5) History of urinary retention: (6) Hypotension: Plan: Patient is a 69-year-old female with past medical history significant for hypothyroidism, SIADH, HTN, orthostatic hypotension, chronic diarrhea, protein- calorie malnutrition, GERD, RLS, Parkinson's disease with dyskinesia and fluctuating manifestations, GREGORIO, depression and frequent falls who presented to the ED with abdominal pain, diarrhea, anorexia, weakness, falls x 1 week. Family report patient has had diarrhea for over a week and was seen by PCP yesterday, started on Vanco yesterday for C Diff. Abdominal pain is crampy with nausea. Has vomited twice yesterday following Vanco, but otherwise has had nausea and no appetite. Also reported headache. Patient was admitted [facility] 05/08-05/16 for multiple rib fractures 2/2 longstanding Parkinson's disease with motor fluctuations and recurrent falls; also with vision impairment to right eye at baseline and most likely contributing to recurrent falls at home. She was discharged to home with family support and in-h ome rehab services with [facility]. Previously, admitted 03/05/25-03/14/25 for weakness and ambulatory dysfunction in the setting of longstanding Parkinson's disease with motor fluctuations. Hospitalization complicated by acute metabolic encephalopathy with fever. Negative infectious workup. Was discharged to [facility] with transition to home on 04/05 with family support. Was treated for UTI sometime between hospital confinements with ciprofloxacin. C. difficile diarrhea Presented with nausea and diarrhea for more than 7 days at PCP 06/04; recent Cipro for UTI in early April; chronic diarrhea since abx completion Positive C Diff toxin B gene DNA on outpatient workup on 06/05; started on oral Vanco [employer]; unable to tolerate at home-> attempted to give oral Vanco inpatient, but patient not tolerating oral meds-> started on IV Flagyl for C Diff management-> transition to oral Vanco today Continues to have loose, watery stool throughout the day Speech eval at bedside today and discussed advancing to full liquid diet; no gagging and doing better with pills, patient requesting for food and fluids today Hypokalemia secondary to GI illness Potassium low 3.0 today replaced w/ K-Glynn x4 Now off IV fluid replacement. As per outside record, patient with unintentional weight loss from illness, poor oral intake due to nausea and diarrhea; Current dietary intake includes Ensure once a day and limited solid food intake.-> Nutrition consult needed prior to discharge Hypertension Permissible hypertension this admission, suspect autonomic dysfunction 2/2 Parkinson's disease Hydralazine given x 2 yesterday; patient on tele monitoring BP stable this morning-> will continue to trend History orthostatic hypotension 2/2 SIADH On fludrocortisone Na+ 139 today Renal functioning stable Hyperglycemia->resolved Glucose 123 on admission; no diabetes; Glucose 74 today A1C 5.1% today History of Parkinson's dementia Recurrent falls at home 2/2 dyskinesia and fluctuating symptoms also with right eye vision impairment; recent amitriptyline d/c due to corneal edema Continue carbidopa/levadopa per home routine; patient does have hallucinations at times and was started on Nuplazid Follows Dr. Hercules for ongoing management PT OT eval recommending SNF at discharge; family prefers d/c to home with their support, walker, cane and wheelchair available at patient's home with family living next door, patient is active with [facility] home health, referral faxed by CM- > not medically stable for d/c at this time Patient daughter requesting update providers. Ms. Viola Weaver, contact #[phone]. DVT Ppx:Lovenox Code status: DNR/DNI PCP: Concepción Cline PA-C Dispo: Discharge to home with family support and [facility] assistance, referral pending; not medically stable for d/c at this time Patient seen in collaboration with Dr. Rasheed. Please see addendum.I spent a total of 45 minutes coordinating, documenting and providing care for this patie nt excluding time spent in the performance of separately billed services or time spent by another provider/QHP. Admission and Anticipated Discharge Date Admission Date: June 06, 2025 Subjective Patient seen and examined at bedside. She was awake, alert, denying abdominal pain and only reporting nausea with oral meds. She feels her throat is dry but able to swallow liquids without difficulty. We discussed increasing oral intake since off iv fluids and transitioning to oral meds today. She was agreeable to this plan. Still having decreased appetite and loose stool. Per bedside nurse, patient tolerated oral medications last evening and had no acute issues overnight. Speech therapy at bedside and updated regarding plan for today. Speech will update on swallowing ability with thickened foods. Denies dizziness, chest pain, palpitations, breathing difficulty, cough, URI symptoms, abdominal pain, vomiting, numbness/tingling, swelling, joint pain, skin rashes/changes. Contacted patient's sister, Viola, via phone to update on patient's progress today. Review of Systems Review of Systems: All systems reviewed & are unremarkable except as noted in Subjective Physical Exam Physical Exam: VITALS: Reviewed. WEIGHT/BMI reviewed. GEN: Healthy appearing, well-developed, NAD. PSYCH: Mildly confused, oriented x 2. Even mood and affect. HEENT -Head: NC/AT; -Eyes: PERRL, EOMI. No discharge or redn ess; -Ears: External ears are normal. -Nose: Normal nares. -Mouth and throat: MMM. Normal gums, muc nita, palate,. Good dentition. NECK: Supple, with no masses. CV: RRR, no m/r/g. LUNGS: CTAB, no w/r/c. ABD: Soft, NT/ND, NBS, no masses or organomegaly. : N/A SKIN: Warm, well perfused. No skin rashes or abnormal lesions. MSK:DIANE. Strength 2/5 BLE. EXT: No clubbing, cyanosis, or edema. NEURO: CN II-XII grossly intact. Speech clear. No focal deficits. Results & Data Results & Data Vital Signs (Past 12 Hours) Vital Signs Temp Pulse Pulse Resp BP Pulse Ox O2 Del Method 06/08/25 08:26 36.6 C 97 H 16 138/75 96 Room Air 06/08/25 07:30 93 H 06/08/25 03:01 36.4 C L 93 H 18 182/96 H 98 Room Air 06/07/25 22:43 36.4 C L 100 H 18 160/81 H 97 Room Air Laboratory Results [facility] 06/08/25 06:41 Sodium 139 Potassium 3.0 L Chloride 103 Carbon Dioxide 24 BUN 7 Creatinine 0.34 L Glucose 74 Calcium 8.6
[2025-06-08] MEDS: POTASSIUM CHLORIDE / WTR 10 MEQ/100 ML PLCT IV SCH (10:57)
[2025-06-08] MEDS: ACETAMINOPHEN 1,000 MG/100 ML VIAL IV PRN (20:10)
[2025-06-09 06:00] LABS: Anion Gap 12.0 (3-11); Blood Urea Nitrogen 5.0 mg/dl (6-23); Calcium 8.2 mg/dl (8.6-10.3); Carbon Dioxide 23.0 mmol/L (21-32); Chloride 101.0 mmol/L (98-107); Creatinine Clr Calc Pharmacy 99.2 ml/min; Glucose 86.0 mg/dl (70-99(Fasting)); Magnesium 1.7 mg/dl (1.7-2.4); Potassium 2.8 mmol/L (3.5-5.1); Sodium 136.0 mmol/L (136-145)
[2025-06-09] MEDS: MAGNESIUM SULFATE / D5W 1 GM/100 ML BAG IV ONE (07:24)
[2025-06-09] MEDS: POTASSIUM CHLORIDE CRTAB 20 MEQ TABCR PO STA (07:24)
--- NOTE | 2025-06-09 07:46 | Hospitalist Progress Note ---
<Statement entered by Adrian Rasheed, DO - 06/09/25 13:06> Clinically improving. She has no complaints today. she continues to refuse consideration for SNF placement Anticipate DC home with HC tomorrow Patient seen and examined Agree with PATRICIA I spent a total of 18minutes coordinating, documenting, and providing care for this patient excluding time spent in the performance of separately billed services. This included personally reviewing all current laboratories and imaging studies, medical reconciliation, outpatient chart review and discussion with specialists Date of Service June 09, 2025 Assessment & Plan (1) C. difficile diarrhea: (2) Hypokalemia: (3) Orthostatic hypotension: (4) SIADH (syndrome of inappropriate ADH production): (5) History of urinary retention: (6) Hypotension: Plan: Patient is a 69-year-old female with past medical history significant for hypothyroidism, SIADH, HTN, orthostatic hypotension, chronic diarrhea, protein- calorie malnutrition, GERD, RLS, Parkinson's disease with dyskinesia and f luctuating manifestations, GREGORIO, depression and frequent falls who presented to the ED with abdominal pain, diarrhea, anorexia, weakness, falls x 1 week. Family report patient has had diarrhea for over a week and was seen by PCP yesterday, started on Vanco yesterday for C Diff. Abdominal pain is crampy with nausea. Has vomited twice yesterday following Vanco, but otherwise has had nausea and no patricia etite. Also reported headache. Patient was admitted [facility] 05/08-05/16 for multiple rib fractures 2/2 longstanding Parkinson's disease with motor fluctuations and recurrent falls; also with vision impairment to right eye at baseline and most likely contributing to recurrent falls at home. She was discharged to home with family support and in- home rehab services with [facility]. Previously, admitted 03/05/25-03/14/25 for weakness and ambulatory dysfunction in the setting of longstanding Parkinson's disease with motor fluctuations. Hospitalization complicated by acute metabolic encephalopathy with fever. Negative infectious workup. Was discharged to [facility] with transition to home on 04/05 with family support. Was treated for UTI sometime between hospital confinements with ciprofloxacin. C. difficile diarrhea Presented with nausea and diarrhea for more than 7 days at PCP 06/04; recent Cipro for UTI in early April; chronic diarrhea since abx completion Positive C Diff toxin B gene DNA on outpatient workup on 06/05; started on oral Vanco [employer]ODUC[employer]; unable to tolerate at home-> attempted to give oral Vanco inpatient, but patient not tolerating oral meds-> started on IV Flagyl for C Diff management-> continue oral Vanco day 09/17 Continues to have loose, watery stool throughout the day Speech following and discussed advancing to minced and moist diet today Electrolyte imbalances secondary to GI illness Potassium low 2.8 today replaced w/ K-Glynn x 3 following KCL 40meq oral given overnight; Now off IV fluid replacement. Phosphorus 2.2 today and replaced with KPhos 6mmol Trend lytes and replace as needed As per outside record, patient with unintentional weight loss from illness, poor oral intake due to nausea and diarrhea; Current dietary intake includes Ensure once a day and limited solid food intake.-> Nutrition consult placed today; will await their recommendations Hypertension Permissible hypertension this admission, suspect autonomic dysfunction 2/2 Parkinson's disease Hydralazine given x 2 yesterday; patient on tele monitoring BP stable this morning-> will continue to trend History orthostatic hypotension 2/2 SIADH On fludrocortisone Na+ 139 today Renal functioning stable Hyperglycemia->resolved Glucose 123 on admission; no diabetes; Glucose 74 today A1C 5.1% today History of Parkinson's dementia Recurrent falls at home 2/2 dyskinesia and fluctuating symptoms also with right eye vision impairment; recent amitriptyline d/c due to corneal edema Continue carbidopa/levadopa per home routine; patient does have hallucinations at times and was started on 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 Hercules for ongoing management PT OT eval recommending SNF at discharge; family prefers d/c to home with their support, walker, cane and wheelchair available at patient's home with family living next door, patient is active with [facility] home health, referral faxed by CM- > not medically stable for d/c at this time Patient daughter requesting update providers. Ms. Viola Weaver, contact #[phone]. DVT Ppx:Lovenox Code status: DNR/DNI PCP: Concepción Cline PA-C Dispo: Discharge to home with family support and [facility] assistance, referral pending; not medically stable for d/c at this time Patient seen in collaboration with Dr. Rasheed. Please see addendum.I spent a total of 45 minutes coordinating, documenting and providing care for this patient excluding time spent in the performance of separately billed services or time spent by another provider/QHP. Admission and Anticipated Discharge Date Admission Date: June 06, 2025 Subjective Patient seen and examined at bedside. She was awake, alert, denying abdominal pain and only reporting a dry throat. She is able to swallow liquids and pills without difficulty; taking oral Vanco without issue. We discussed increasing oral intake and advancing diet as she tolerates. She was agreeable to this plan. Still having loose stool. Per bedside nurse, patient is having hallucinations and for me she said she "thinks her mind is going crazy". I reoriented her to the date, day of week, time, place. I asked her if the name on the ID was her's and she said yes. No hallucinations on my exam, but expect she will have hallucinations during sleep hours as this is her baseline at home. Speech therapy at bedside and updated regarding plan for today with minced and moist diet. Speech will update and will sign off possibly today. Client Services Representative consult for today. Denies dizziness, chest pain, palpitations, breathing difficulty, cough, URI symptoms, abdominal pain, vomiting, numbness/tingling, swelling, joint pain, skin rashes/changes. Review of Systems Review of Systems: All systems reviewed & are unremarkable except as noted in Subjective Physical Exam Physical Exam: VITALS: Reviewed. WEIGHT/BMI reviewed. GEN: Healthy appearing, well-developed, NAD. PSYCH: Mildly confused, oriented x 2. Even mood and affect. HEENT -Head: NC/AT; -Eyes: PERRL, EOMI. No discharge or redn ess; -Ears: External ears are normal. -Nose: Normal nares. -Mouth and throat: MMM. Normal gums, muc nita, palate,. Good dentition. NECK: Supple, with no masses. CV: RRR, no m/r/g. LUNGS: CTAB, no w/r/c. ABD: Soft, NT/ND, NBS, no masses or organomegaly. : N/A SKIN: Warm, well perfused. No skin rashes or abnormal lesions. MSK:DIANE. Strength 2/5 BLE. EXT: No clubbing, cyanosis, or edema. NEURO: CN II-XII grossly intact. Speech clear. No focal deficits. Results & Data Results & Data Vital Signs (Past 12 Hours) Vital Signs Temp Pulse Pulse Resp BP Pulse Ox O2 Del Method 06/09/25 07:19 102 H 06/09/25 02:36 36.8 C 102 H 18 172/89 H 96 Room Air 06/08/25 22:32 36.9 C 97 H 18 165/75 H 97 Room Air 06/08/25 22:04 96 H 06/08/25 20:00 Room Air Laboratory Results [facility] 06/09/25 05:19 Sodium 136 Potassium 2.8 L Chloride 101 Carbon Dioxide 23 BUN 5 L Creatinine 0.36 L Glucose 86 Calcium 8.2 L
[2025-06-09] MEDS: POTASSIUM CHLORIDE / WTR 10 MEQ/100 ML PLCT IV SCH (08:00)
[2025-06-09] MEDS: POTASSIUM CHLORIDE CRTAB 20 MEQ TABCR PO ONE (08:08)
[2025-06-09] MEDS ORDERED: POTASSIUM PHOS 3 MMOL/1 ML INFUSION IV STA (12:48)
[2025-06-09] MEDS: POTASSIUM PHOSPHATE 6 MMOL in SODIUM CHLORIDE 0.9% 100 ML IV ONE (13:41)
[2025-06-09] MEDS: LORazepam 1 MG TAB PO PRN (18:30)
[2025-06-10 08:51] VITALS: RESP 17
[2025-06-10 09:23] LABS: Anion Gap 8.0 (3-11); Blood Urea Nitrogen 5.0 mg/dl (6-23); Calcium 8.6 mg/dl (8.6-10.3); Carbon Dioxide 26.0 mmol/L (21-32); Chloride 104.0 mmol/L (98-107); Creatinine Clr Calc Pharmacy 105.0 ml/min; Glucose 116.0 mg/dl (70-99(Fasting)); Magnesium 1.7 mg/dl (1.7-2.4); Potassium 3.6 mmol/L (3.5-5.1); Sodium 138.0 mmol/L (136-145)
[2025-06-10] MEDS: POTASSIUM CHLORIDE CRTAB 20 MEQ TABCR PO STA (10:00)
[2025-06-10] MEDS: MAGNESIUM SULFATE / D5W 1 GM/100 ML BAG IV SCH (10:00)
[2025-06-10 11:56] VITALS: TEMP 98.4; O2SAT 97
--- NOTE | 2025-06-10 15:22 | Discharge Summary ---
<Statement entered by Adrian Rasheed, DO - 06/11/25 07:30> Feeling well. eager for dc home. she once again refused snf placement. family agreeable to take her back. seen and examined I spent a total of 18 minutes coordinating, documenting, and providing care for this patient excluding time spent in the performance of separately billed services. This included personally reviewing all current laboratories and imaging studies, medical reconciliation, outpatient chart review and discussion with specialists Discharge Summary Date of Service June 10, 2025 Principal Dx & Hospital Course #1 = Principal Diagnosis (1) C. difficile diarrhea: (2) Hypokalemia: (3) Orthostatic hypotension: (4) SIADH (syndrome of inappropriate ADH production): (5) History of urinary retention: (6) Hypotension: Plan Patient is a 69-year-old female with past medical history significant for hypothyroidism, SIADH, HTN, orthostatic hypotension, chronic diarrhea, protein- calorie malnutrition, GERD, RLS, Parkinson's disease with dyskinesia and fluctuating manifestations, GREGORIO, depression and frequent falls who presented to the ED on 06/06/25 with c/o abdominal pain, diarrhea, anorexia, generalized weakness and recurrent falls x 1 week. Was started on po vancomycin by her PCP 1 day [employer] after testing positive for C. difficile diarrhea. Was unable to tolerate po vancomycin at home 2/2 nausea and vomiting. Previously admitted under our service 05/08/25-05/16/25 2/2 ambulatory dysfunction ISO longstanding Parkinson's disease with motor fluctuations, multiple rib fractures s/p GLF. Also with vision impairment to R eye at baseline which has been c/t recurrent falls. Was DC'd home with family support and PT/OT through [facility]. C. difficile diarrhea Recently completed po ciprofloxacin course in early April for UTI, positive C. diff toxin on OP workup done 06/05/25. CTAP findings c/w a nonspecific pancolitis. Started on po vancomycin [employer] however was unable to tolerate this at home 2/2 nausea and vomiting. Patient initially did not tolerate po vancomycin while inpatient and was started on IV Flagyl. Did resume po vancomycin on 06/08 and patient has since then been tolerating it without issue, nausea and vomiting resolved. Abdominal pain also improved. Stools still a bit loose but a lot less frequent. Plan to complete 10-day po vancomycin course. Parkinson's disease Follows with Dr. Hercules for ongoing management. On Rytary, Wellbutrin and Nuplazid. Nuplazid was started 2/2 hallucinations. Recurrent falls 2/2 dyskinesia and fluctuating symptoms also with R eye vision impairment; recent amitriptyline d/c due to corneal edema. PT/OT recommended SNF however family prefers DC home with [facility]. Walker, cane and wheelchair available at patient's home. Family lives next door. Mild-moderate oropharyngeal dysphagia Prior VFSS c/w mild pharyngeal dysphagia with impact on swallow efficiency w/o impacting swallowing safety, no aspiration. Requires some assistance with feeds in light of advancing Parkinson's disease. OUTSOLE SPLICER eval this admission recommending minced/moist diet, thin liquids. Crush large medications in pudding. Patient tolerating current diet without issue. Orthostatic hypotension ISO progressive Parkinson's disease Follows with Dr. Seble Rome. Ongoing and significantly symptomatic hypotension for which she is essentially dependent on fludrocortisone. Continue fludrocortisone uninterrupted. Allow for permissive HTN while supine and sitting as previously recommended by Dr. Pruett. Electrolyte imbalances secondary to GI illness Electrolytes repleted PRN including phos, K and mag. Hypertension Permissible hypertension this admission, suspect autonomic dysfunction 2/2 Parkinson's disease Hydralazine given x 2 yesterday; patient on tele monitoring BP stable this morning-> will continue to trend Hyperglycemia, resolved Hgb A1c 5.1% this admission. PCP: Concepción Cline PA-C Disposition: Patient is being DC'd home in stable condition with [facility] services. Patient's sister, Viola, updated over the phone @ [phone] on day of DC and expresses understanding regarding the above plans of care. Patient seen in collaboration with Dr. Rasheed. Please see addendum. I spent a total of 58 minutes coordinating, documenting, and providing care for this patient excluding time spent in the performance of separately billed services or time spent by another provider/QHP. This included personally reviewing all current laboratories and imaging studies, medical reconciliation, outpatient chart review and discussion with specialists. This chart was completed in part utilizing Speech Voice Recognition Software. Grammatical errors, random word insertions, pronoun errors, and incomplete sentences are an occasional consequence of this system due to software limitations, ambient noise, and hardware issues. Any formal questions or concerns about the content, text, or information contained within the body of this dictation should be directly addressed to the provider for clarification. Notes For Next Care Provider Medication Changes From Visit Oral vancomycin for C. difficile diarrhea Admission HPI Per Admitting Provider History obtained from patient, family, and records. Patient is a fair historian. Medical history significant for hypertension, orthostatic hypotension on fludrocortisone, SIADH as per records, Parkinson's dementia, GERD, recurrent falls, mood disorder. Recent confinement 3 weeks ago for multiple rib fractures secondary to ambulatory dysfunction. Rehab placement unsuccessful due to bed unavailability. Patient discharged home with home health/PT. Patient with watery diarrhea symptoms in the last week. No chest pain, no SOB. No abdominal pain at onset. Nausea with vomiting symptoms with food intake. Patient increasingly weak, unquantified weight loss at home. Patient seen at PCPs office 2 days ago. Outpatient stool C. difficile toxin B gene later noted to be positive. No prior history of C. difficile as per family. Patient unable to keep down oral vancomycin medication prescribed by PCP. Patient had achy upper abdominal pain today. Patient not any more confused than usual. Denies chest pain, SOB, cough. Patient brought to ER for evaluation. SBP 90s upon arrival at the ER. 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 Admission Exam Per Admitting Provider GENERAL: Slightly uncomfortable, apathetic, no respiratory distress SKIN: Normal color, warm HEENT: [place] palpebral conjunctivae, no ptosis, dry buccal mucosa NECK : Supple, no tenderness CHEST : Decreased breath sounds, no tenderness HEART : Tachycardic, no obvious murmurs ABDOMEN: Some distention, central abdominal tenderness EXTREMITIES : No LE swelling/tenderness, palpable pulses, no other conspicuous deformities noted NEUROLOGIC : Oriented to day and year, no facial asymmetry, gait and stance not assessed Discharge Exam General: awake, alert, no apparent distress, elderly white female, sitting up in bedside chair Head: Normocephalic, atraumatic ENT: PERRL, EOMI, no pharyngeal exudate, mucous membranes moist Chest: Clear to auscultation, on room air, no adventitious breath sounds Cardiac: Regular rate and rhythm, no murmur, no JVD, normal peripheral pulses, good capillary refill Abdominal: NABS x 4 quadrants, soft, nondistended, nontender to palpation, no rebound or guarding Extremities: BUE with fine tremor at rest, Normal inspection, no peripheral edema or erythema, calfs nontender to palpation Psych: Normal mood and affect Neuro: AAO x 3, strength intact bilaterally and rated 5/5, no motor deficits, speech is clear, no peripheral sensory deficits Updated Medication List Medication Instructions Recorded Confirmed Type Lactobacillus acidophilus 10 10,000 mmu cells PO DAILY 02/18/22 06/06/25 History billion cell capsule (Probiotic) magnesium 250 mg tablet 250 mg PO Q OTHER DAY 02/18/22 06/06/25 History multivitamin with minerals 1 tab PO DAILY 02/18/22 06/06/25 History omeprazole 40 mg capsule,delayed 40 mg PO DAILYBB 02/18/22 06/06/25 History release acetaminophen 500 mg tablet 1,000 mg PO TID PRN Pain 03/05/25 06/06/25 History bupropion HCl 300 mg 24 hr tablet, 300 mg PO QAM 03/05/25 06/06/25 History extended release carbidopa ER 36.25 mg-levodopa 145 2 cap PO TID 03/05/25 05/08/25 History mg capsule,extended release (Rytary) carbidopa ER 36.25 mg-levodopa 145 3 cap PO HS 03/05/25 05/08/25 History mg capsule,extended release (Rytary) docusate sodium 100 mg capsule 100 mg PO DAILY PRN Constipation 03/05/25 06/06/25 History (Colace) fludrocortisone 0.1 mg tablet 0.1 mg PO DAILY 03/05/25 06/06/25 History food supplemt, lactose-reduced 1 ea PO DAILY 03/05/25 06/06/25 History (Ensure oral liquid) triamcinolone acetonide 0.1 % 1 applic dental BID Apply to 03/05/25 06/06/25 History dental paste inside of cheek pimavanserin 34 mg capsule 34 mg PO HS 03/14/25 06/06/25 History (Nuplazid) melatonin 3 mg tablet 6 mg PO HS 05/08/25 05/08/25 History prednisolone acetate 1 % eye 1 drp OPB TID 05/08/25 06/06/25 History drops,suspension carbidopa ER 36.25 mg-levodopa 145 1 cap PO QID 06/06/25 06/06/25 History mg capsule,extended release (Rytary) food supplemt, lactose-reduced See Rx Instructions .Route .COMPLEX 06/06/25 06/06/25 History (Ensure oral liquid) ondansetron HCl 4 mg tablet 4 mg PO Q8H PRN nausea 06/06/25 06/06/25 History vancomycin 125 mg capsule 125 mg PO QID 06/06/25 06/06/25 History (Vancocin) Hospital Stay Data Consultations 06/06/25 05:57 ED Decision to Admit Stat Diagnostic Imagining Performed 06/06/25 07:06 CT Abd and Pelvis [CT abd pelvis IV con only] Stat FINDINGS: Lung bases: The heart is mildly enlarged and without pericardial effusion. There is coronary artery atherosclerosis. There is bibasilar scarring/atelectasis. No airspace consolidation or pleural effusion is identified. Liver: The contrast-enhanced liver is normal in size, contour, and attenuation. There is mild central intrahepatic biliary ductal dilatation. The hepatic veins and portal veins are patent. Gallbladder: The gallbladder is distended but otherwise normal as imaged. Spleen: Normal in size and attenuation. Pancreas: Unremarkable. Adrenal glands: Unremarkable. Kidneys: The contrast enhanced kidneys are normal in size and without hydronephrosis. The kidneys enhance symmetrically. A 10 mm left renal cyst is unchanged. Abdominal vasculature: The abdominal aorta is normal in course and caliber noting mild atherosclerotic calcification. Bowel: There is marked wall thickening and edema seen throughout the colon. This is greatest involving the left colon, and there is surrounding infiltration and fluid. The appearance is consistent with a nonspecific pancolitis. No bowel obstruction is seen. The appendix is normal as visualized. Peritoneum: No intraperitoneal free air is identified. There is a small volume of pelvic ascites. Lymphadenopathy: None. Pelvic viscera: The bladder is mildly distended but otherwise normal as imaged. The uterus and adnexa are normal as visualized. Skeletal structures: The skeletal structures are osteopenic. There is moderate lumbosacral spondylosis. No lytic or blastic lesions are seen. There are subacute/healing left anterolateral rib fractures, as well as subacute/healing bilateral posterior rib fractures and a subacute fracture of the right transverse process of T10. IMPRESSION: 1. Findings are consistent with a nonspecific pancolitis. This is likely on an infectious or inflammatory basis and clinical correlation will be required. 2. Small volume pelvic ascites. 3. There are subcutaneous/healing bilateral rib fractures, as well as a healing right transverse process fracture of T10. 4. The gallbladder is significantly distended but otherwise normal as imaged. Correlate with clinical and laboratory findings. 5. Cardiomegaly noting coronary artery atherosclerosis. 6. Additional findings as above. Discharge Instructions Given to Patient (Per Discharging Provider) MEDICATION CHANGES: Oral vancomycin for C. difficile diarrhea - Please continue taking this medication as prescribed and in its entirety. A prescription for this medication has been sent to [facility] pharmacy at [address] [facility]. RECOMMENDATIONS FOR FOLLOW-UP: Please attend your PCP follow-up appointment as scheduled. Seek medical attention if you have: * temperature above 101F * chest pain or trouble breathing * abdominal pain, nausea, vomiting * diarrhea, dark stools or bloody stools * any unanswered questions or concerns Call 911 if symptoms are severe. Please take good care of yourself. It has been a pleasure taking care of you. If you have any questions regarding your recent hospitalization, please contact [facility] and request a [facility] Hospitalist @ [phone]. Total Time Total Time Spent Total Time Spent (In Minutes): 58
[2025-06-10 16:14] VITALS: BP 162/84; PULSE 104
== END 2025-06-10 17:28 | disposition home health service (06) | DRG 372 ==
LOC: ED 04:27 → 2W 06:10